=== PATIENT | female | born 1985 | race Two or more races ===

== ENCOUNTER 2024-06-12 13:05 | Outpatient (AMB) | payer MEDICAID, SELFPAY ==
[2024-06-12 13:20] VITALS: BP 124/74; PULSE 88; RESP 18; TEMP 36.6; O2SAT 98; BMI 22.8
--- NOTE | 2024-06-12 13:20 | OBCLNT_ITS ---
Vital Signs 06/12/24 13:20 Height 1.63 m Height Method Stated Weight 60.555 kg Weight Measurement Method Standing Scale BMI 22.8 BP 124/74 Blood Pressure Source Automatic Cuff Blood Pressure Location Right Upper Arm Position Sitting Respiration 18 Pulse 88 Pulse Source Monitor Temp 98 F Temp Source Temporal Artery Scan Pulse Oximetry (%) 98 Oxygen Delivery Method Room Air Allergies/Home Meds Allergies & Medications Allergies No Known Allergies Allergy (Verified 06/12/24 13:21) Medication Reconciliation prenat.vits,andrey,[id number] 1 tab PO QDAY 11/15/19 [History Confirmed ] Intake Visit Data Collection New Patient or Established: Established Patient (seen at [facility] within 3 years) Reason for Visit:: obi Do You Feel Safe at Home: Yes Authorities Contacted: N/A PCP or OBGYN visit in last 3 months: Yes Last menstrual period: 03/06/24 Pain Present Currently: No Smoking Status Smoking Status: Never smoker Questionnaires Covid-19 Vaccine Questionnaire Has patient been vacinated for Covid-19 Have you been vacinated for Covid-19: Yes PHQ-9 PHQ-2 Over the last 2 weeks, how often have you been bothered by any of the following problems? 1. Little interest or pleasure in doing things: not at all 2. Feeling down, depressed, or hopeless: not at all Total score: 0 Depression screen completed yes Social History Living Situation History Marital Status: Lives With: Family Housing: House Tobacco History Smoking Status: Never smoker Second Hand Smoke Exposure: No Alcohol History Alcohol Intake: Never Domestic Abuse History Do You Feel Safe at Home: Yes Past Medical History Past Medical History Have you ever been diagnosed with any of the following: Neurological Problems Seizures: No Cardiology Problems Congestive Heart Failure: No Respiratory Problems Chronic Obstructive Pulmonary Disease (COPD): No Genital/Urinary Problems Renal Disease: No Reproductive Problems Endometriosis: No Pelvic Inflammatory Disease: No Previous Pregnancies: Yes Endocrine Problems Diabetes Mellitus Type 1: No Diabetes Mellitus Type 2: No Blood Problems Anemia: Yes (with .) Other Problems Hospitalization: No Shingles: No Falls: No Blood Transfusions: No Blood Transfusion Reaction: No Anesthesia Reactions: No Chemotherapy: No Human Immunodeficiency Virus (HIV): No Chicken Pox: Yes Measles: Yes Mumps: No Rubella (Cook Islander Measles): No Pertussis: No Clostridium Difficile: No Cancer: No History of Present Illness HPI Narrative 38-year-old 8 para 4 that comes to [facility] for first OB appointment. Patient started with Dr. Leung at [facility] however she did not do any of her labs. Patient had 2 ultrasounds 1 at [facility] and I called for those results. Last period March 06, 2024. Estimated due date December 09, 2024. Patient reports menses are every month and they are regular. She is sure of her dates she tracks them. Denies social habits. Denies surgery. Denies chronic illness. Patient has a history of gestational diabetes on insulin with her last . And with her the prior she had GDM diet. All pregnancies were full-term and uncomplicated births. Patient and partner are happy about the it was planned. Denies bleeding or SAB complaints. She has nausea but is refusing medication. Patient will try sea bands. OB Initial Visit OB Flowsheet OB Flowsheet Initial Weight: Not Recorded Date -?-?-?-?-?-?-?-?-?-?-?-?- EGA Weight Edema CTX Effacement BP Fundal ht Pres Dilation Effacement Station Visit Note Alb Glu FHR Mov 06/12/24 -?-?-?-?-?-?-?-?-?-?-?-?- 14w 0d 60.555 kg absent absent 124/74 15 38-year-old multipara for first OB appointment. Patient is a transfer from [facility]. Previous history of diabetes with her last on insulin. Last period was March 06, 2024. EDC 12/09/2024. Denies bleeding or cramping at this time. Patient does have nausea. I offered Zofran to patient and patient declined. Patient's going to try sea bands and other comfort measures. Discussed diet and weight gain with patient. Increase exercise. Did a OB panel with an early 1 hour GTT and hemoglobin A1c. Also NIPT and carrier screens. I scheduled [facility] appointment for anatomy scan. And will offer genetic counseling because of advanced maternal age. Urine today dip was clear there is negative protein, negative leukocytes, negative nitrites. Return in 4 weeks OB check 156 Menstrual History Menstrual reliability: approximate (month known) Flow: normal Menstrual regularity: regular Monthly: Yes Age at menarche: 10 On control pills at conception: No Date of positive home test: 04/08/24 Associated symptoms (LMP): Reports nausea OB History : 8 Para: 4 Hx Total # of Abortions (Spontaneous & Elective): 3 # of Living Children: 4 Delivery History 1st : Child's name: keisha date: 08/03/09 sex: male Gestational age at delivery (weeks): 41 Delivery type: vaginal weight (lbs): 3628.739 g History of depression before or after : No 2nd : Child's name: teddy date: 11/10/10 sex: male Gestational age at delivery (weeks): 40 Delivery type: vaginal weight (lbs): 3175.147 g Delivery complications: none History of depression before or after : No 3rd : Child's name: marco date: 12/06/13 sex: female Gestational age at delivery (weeks): 40 Delivery type: vaginal weight (lbs): 3628.739 g Delivery complications: none History of depression before or after : No 4th : Child's name: christiano date: 01/18/20 sex: female Gestational age at delivery (weeks): 38 Delivery type: vaginal weight (lbs): 3175.147 g Delivery complications: none History of depression before or after : No Infection History & Risk Evaluation History of STDs: none HIV risk evaluation: low risk Hepatitis B risk evaluation: low risk Patient or partner has history of Genital Herpes: No Genetic Screening & History Genetic Screening/Teratology Counseling - Includes patient, baby's father, or anyone in either family with: 1. Patient's age 35 years or older as of estimated date of delivery: Yes 2. Thalassemia (Zambian, German, Mediterranean, or Background); MCV less than 80: No 3. Neural Tube Defect (Meningomyelocele, Spina Bifida, or Anencephaly): No 4. Congenital Heart Defect: No 5. Down Syndrome: No 6. Rk-Sachs (Ashkenazi Restorationist, Cajun, Uzbek Wall[place]): No 7. Tammy Disease (Ashkenazi Restorationist): No 8. Familial Dysautonomia (Ashkenazi Restorationist): No 9. Sickle Cell Disease or Trait (): No 10. Hemophilia or other blood disorders: No 11. Muscular Dystrophy: No 12. Cystic Fibrosis: No 13. Ellen's Chorea: No 14. Mental Retardation/Autism: No 15. Other inherited genetic or chromosomal disorder: No 16. Maternal Metabolic Disorder (EG,TYPE 1 Diabetes, PKU): No 17. Patient or baby's father had a child with defects not listed above: No 18. Recurrent loss or a stillbirth: No 19. Medications (including supplements, vitamins, herbs or otc dr ugs)/illicit/recreational drugs/alcohol since last menstrual period: No Infection History 1. Live with someone with TB or exposed to TB: No 2. Rash or viral illness since last menstrual period: No 3. Hepatitis B,C: No Other (see comments) Source: [employer] Review of Systems Review of Systems Systems Reviewed: All systems reviewed, normal except as documented Gastrointestinal Gastrointestinal: Reports nausea Exam Narrative Physical exam: fh: 15, FHT: 156 General Limitations: no limitations General Appearance: alert, in no apparent distress, comfortable, cooperative, healthy appearing, well developed and well groomed Chest Chest inspection: Present normal inspection and symmetric chest wall rise Resp Respiratory exam: Present normal lung sounds bilaterally Card Cardiovascular exam: Present regular rate, normal rhythm and normal heart sounds Abdominal Abdominal exam: Present soft and normal bowel sounds Psych Psychiatric exam: Present normal affect and normal mood Assessment & Plan Diagnosis / Problem List (1) Encounter for supervision of high risk in second trimester, antepartum: Status: Acute (2) Advanced maternal age (AMA) in : Status: Acute Plan Discussed comfort measures for nausea and vomiting. And I discussed weight gain and low-carb increased protein diet. Walk 40 minutes a day. Schedule anatomy scan at [facility] with MFM. OB panel today with 1 hour GTT and hemoglobin A1c and do carrier screens and NIPT. SAB precautions. Increase fluids. Return in 4 weeks OB to Additional Plan Follow Up: 4 Weeks (obc) Office Procedures OB Clinic LOC & Office Proc's Nursing/Assessment Patient Status: Initial/New Patient OB Clinic Nursing Assessment: Medication Reconciliation, Update PMH in EMR and Vital Signs OB Clinic Coordination of Care: Complex Care and Chronic Disease 1-5, Education Complex Pt/Fam, Consent,records obtained, informed consent, Lab and Imaging orders, Results/Orders obtained and Staff clarify orders New Patient Charge New Patient Point Assignment: [id number] New Patient Point Charge: LOOM MECHANIC Level 3 ([id number])
== END 2024-06-12 14:11 | disposition home or self-care (01) ==
LOC: HODSOBC 13:05
PROVIDERS: Supervising Provider Advanced Practice Midwife; Visit Provider Advanced Practice Midwife
DX: O09.522 Supervision of elderly multigravida, second trimester (principal); Z3A.14 14 weeks gestation of pregnancy; Z86.32 Personal history of gestational diabetes
CPT/HCPCS: 99203; G0463

== ENCOUNTER 2024-07-10 13:11 | Outpatient (AMB) | payer MEDICAID, SELFPAY ==
[2024-07-10 13:24] VITALS: BP 113/72; PULSE 98; RESP 20; TEMP 36.6; O2SAT 100; BMI 23.4
--- NOTE | 2024-07-10 13:24 | OBCLNT_ITS ---
Vital Signs 07/10/24 13:24 Height 1.63 m Height Method Stated Weight 62.369 kg Weight Measurement Method Standing Scale BMI 23.4 BP 113/72 Blood Pressure Source Automatic Cuff Blood Pressure Location Right Upper Arm Position Sitting Respiration 20 Pulse 98 Pulse Source Monitor Temp 98 F Temp Source Oral Pulse Oximetry (%) 100 Oxygen Delivery Method Room Air Allergies/Home Meds Allergies & Medications Allergies No Known Allergies Allergy (Verified 07/10/24 13:51) Medication Reconciliation prenat.vits,andrey,[id number] 1 tab PO QDAY 11/15/19 [History Confirmed 07/10/24] aspirin 81 mg tablet,delayed release (Adult Aspirin Regimen) 81 mg PO QDAY 30 days #60 tabs 07/10/24 [Rx] vitamin-ferrous fumarate 28 mg iron-folic acid 800 mcg tablet ( Vitamins with Minerals) 1 tab PO QDAY 30 days #60 tabs 07/10/24 [Rx] Intake Visit Data Collection New Patient or Established: Established Patient (seen at [facility] within 3 years) Reason for Visit:: CARE Seen by Clinical Staff ONLY (RN/MA): No Wheel Lacer And Truer Required: No Do You Feel Safe at Home: Yes Authorities Contacted: N/A PCP or OBGYN visit in last 3 months: Yes Hx Now: Yes Are you currently on any form of Control: No Pain Present Currently: No Pain Scale Used: Suresh-Brown/Numerical Pain scale:: 0 Smoking Status Smoking Status: Never smoker Questionnaires Covid-19 Vaccine Questionnaire Has patient been vacinated for Covid-19 Have you been vacinated for Covid-19: Yes PHQ-9 PHQ-2 Over the last 2 weeks, how often have you been bothered by any of the following problems? 1. Little interest or pleasure in doing things: not at all 2. Feeling down, depressed, or hopeless: not at all Total score: 0 PHQ-9 3. Trouble falling or staying asleep, or sleeping too much: Not at all 4. Feeling tired or having little energy: Not at all 5. Poor appetite or overeating: Not at all 6. Feeling bad about yourself - or that you are a failure or have let yourself or your family down: Not at all 7. Trouble concentrating on things, such as reading the newspaper or watching television: Not at all 8. Moving or speaking so slowly that other people could have noticed? - Or the opposite - being so fidgety or restless that you have been moving around a lot more than usual: not at all 9. Thoughts that you would be better off or of hurting yourself in some way: Not at all Total score: 0 Source: Developed by Drs. Musa Calixto, Jayshree Chua, Luis Fernando Fowler and colleagues, with an educational juan from [employer]. 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 Patient is a transfer from [facility]. Previous history of diabetes with her last on insulin. Last period was March 06, 2024. EDC 12/09/2024. Denies bleeding or cramping at this time. Patient does have nausea. I offered Zofran to patient and patient declined. Patient's going to try sea bands and other comfort measures. Discussed diet and weight gain with patient. Increase exercise. Did a OB panel with an early 1 hour GTT and hemoglobin A1c. Also NIPT and carrier screens. I scheduled [facility] appointment for anatomy scan. And will offer genetic counseling because of advanced maternal age. Urine today dip was clear there is negative protein, negative leukocytes, negative nitrites. Return in 4 weeks OB check 07/10/24 -?-?-?-?-?-?-?-?-?-?-?-?- 18w 0d 62.369 kg 113/72 absent unknown 20 135 active fetus active, no SAB complaints. patient going to vacation x 2 month , going to [place] patiwnt will have mfm appointment on return and do 3 hr GTT, discussed ptl precaution discuss safety and er precaution, hydrate, mfm appointment is schedule, discuss labs, discuss GDM diet and 1 hr results. patient will get 3 hr gtt on return AKUA Calculator Estimated Delivery Date Method Current WG Current Estimate 12/11/24 LMP (Certain) 18w 0d Office Procedures OB Clinic LOC & Office Proc's Nursing/Assessment Patient Status: Established Patient OB Clinic Nursing Assessment: Medication Reconciliation, Update PMH in EMR and Vital Signs OB Clinic Coordination of Care: AMA, Complex Care and Chronic Disease 1-5, Consent,records obtained, informed consent, Education Simp Pt/Fam, Lab and Imaging orders, Results/Orders obtained and Staff clarify orders Special Needs: Heart tones Established Patient Charge Established Patient Point Assignment: 155 Established Patient Point Charge: EP Level 4 (120-155) Assessment & Plan Diagnosis / Problem List (1) Advanced maternal age (AMA) in : Status: Acute (2) Encounter for supervision of high risk in second trimester, antepartum: Status: Acute Plan keep mfm appointment, sab precaution, refill pnv and ASA. patient will get 3 hr gtt when she returns from vacation, increase fluid. rtc 4 week Additional Plan Follow Up: 4 Weeks (obc)
== END 2024-07-10 13:57 | disposition home or self-care (01) ==
LOC: HODSOBC 13:11
PROVIDERS: Supervising Provider Advanced Practice Midwife; Visit Provider Advanced Practice Midwife
DX: O09.522 Supervision of elderly multigravida, second trimester (principal); Z3A.18 18 weeks gestation of pregnancy; O09.292 Supervision of pregnancy with other poor reproductive or obstetric history, second trimester; Z86.32 Personal history of gestational diabetes; Z79.82 Long term (current) use of aspirin
CPT/HCPCS: 99214; G0463

== ENCOUNTER 2024-09-18 13:00 | Outpatient (AMB) | payer MEDICAID, SELFPAY ==
[2024-09-18 13:07] VITALS: BP 111/68; PULSE 96; RESP 17; TEMP 36.7; O2SAT 99; BMI 25.2
--- NOTE | 2024-09-18 13:07 | AMB.OBVISIT ---
Vital Signs 09/18/24 13:07 Height 1.63 m Height Method Measured Weight 67.188 kg Weight Measurement Method Standing Scale BMI 25.2 BP 111/68 Blood Pressure Source Automatic Cuff Blood Pressure Location Right Upper Arm Position Sitting Respiration 17 Pulse 96 Pulse Source Monitor Temp 98.0 F Temp Source Temporal Artery Scan Pulse Oximetry (%) 99 Oxygen Delivery Method Room Air Allergies/Home Meds Allergies & Medications Allergies No Known Allergies Allergy (Verified 09/18/24 13:08) Medication Reconciliation prenat.vits,andrey,[id number] 1 tab PO QDAY 11/15/19 [History Confirmed 09/18/24] aspirin 81 mg tablet,delayed release (Adult Aspirin Regimen) 81 mg PO QDAY 30 days #60 tabs 07/10/24 [Rx Confirmed 09/18/24] ferrous sulfate 325 mg (65 mg iron) tablet 325 mg PO BID #60 tabs 09/18/24 [Rx] vitamin-ferrous fumarate 28 mg iron-folic acid 800 mcg tablet ( Vitamins with Minerals) 1 tab PO QDAY 30 days #60 tabs 09/18/24 [Rx] Intake Visit Data Collection New Patient or Established: Established Patient (seen at [facility] within 3 years) Reason for Visit:: C Consent obtained for Telemed Visit: No Seen by Clinical Staff ONLY (RN/MA): No Park Ranger Required: No Do You Feel Safe at Home: Yes Authorities Contacted: N/A PCP or OBGYN visit in last 3 months: Yes Date of Last PCP or OBGYN visit: 07/10/24 Hx Now: Yes Are you currently on any form of Control: No Pain Present Currently: No Pain Scale Used: Suresh-Brown/Numerical Pain scale:: 0 Smoking Status Smoking Status: Never smoker Questionnaires Covid-19 Vaccine Questionnaire Has patient been vacinated for Covid-19 Have you been vacinated for Covid-19: No PHQ-9 PHQ-2 Over the last 2 weeks, how often have you been bothered by any of the following problems? 1. Little interest or pleasure in doing things: not at all PHQ-9 8. Moving or speaking so slowly that other people could have noticed? - Or the opposite - being so fidgety or restless that you have been moving around a lot more than usual: not at all Source: Developed by Drs. Musa L. DurgaJayshree toledo, Luis Fernando Fowler and colleagues, with an educational juan from [employer]. 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 Patient is a transfer from [facility]. Previous history of diabetes with her last on insulin. Last period was March 06, 2024. EDC 12/09/2024. Denies bleeding or cramping at this time. Patient does have nausea. I offered Zofran to patient and patient declined. Patient's going to try sea bands and other comfort measures. Discussed diet and weight gain with patient. Increase exercise. Did a OB panel with an early 1 hour GTT and hemoglobin A1c. Also NIPT and carrier screens. I scheduled MFM appointment for anatomy scan. And will offer genetic counseling because of advanced maternal age. Urine today dip was clear there is negative protein, negative leukocytes, negative nitrites. Return in 4 weeks OB check 07/10/24 <del>?</del> 18w 0d 62.369 kg 113/72 absent unknown 20 135 active fetus active, no SAB complaints. patient going to vacation x 2 month , going to [place] patiwnt will have mfm appointment on return and do 3 hr GTT, discussed ptl precaution discuss safety and er precaution, hydrate, mfm appointment is schedule, discuss labs, discuss GDM diet and 1 hr results. patient will get 3 hr gtt on return 09/18/24 <del>?</del> 28w 0d 67.188 kg 111/68 absent unknown 28 135 active Patient returned from a 2-month vacation in [facility]. Reports good movement. She did not have time to do her 3-hour yet. She will do it in [place]. Patient has a follow-up in with maternal- medicine in 4 weeks. Reports good movement. Denies labor complaints Advised to get 3-hour GTT tomorrow. Continue vitamins and iron. Continue low-dose baby aspirin. Discussed GDM diet with patient. Discussed labor precautions. And schedule weekly NST BPP to start at 32 weeks. Return in 2 weeks OB check AKUA Calculator Estimated Delivery Date Method Current WG Current Estimate 12/11/24 LMP (Certain) 28w 0d Notes Visit Date: 09/18/24 Last Updated by: Yashira Kapoor, SAMI 39 yo LMP :03/06/24. EDC: 12/11/24. 1hr gtt: 147, O+,abs-, rpr;;nr, rub imm, hbsag-, hiv-,hc-, GC/CT-, NIPT/carrier screen- Office Procedures OB Clinic LOC & Office Proc's Nursing/Assessment Patient Status: Established Patient OB Clinic Nursing Assessment: Medication Reconciliation, Update PMH in EMR and Vital Signs OB Clinic Coordination of Care: Complex Care and Chronic Disease 1-5, Consent,records obtained, informed consent, Education Simp Pt/Fam and 4+ Authorizations needed Special Needs: Heart tones Established Patient Charge Established Patient Point Assignment: 130 Established Patient Point Charge: EP Level 4 (120-155) Assessment & Plan Diagnosis / Problem List (1) Advanced maternal age (AMA) in : Status: Acute (2) Encounter for supervision of high risk in third trimester, antepartum: Status: Acute Plan iron bid, refill PNV, continue ASA, f/u mfm 4 week. advised to get 3 hr gtt, start week NST/BPP. discuss ptl precaution,hydrate. rtc 3 week Additional Plan Follow Up: 3 Weeks (obc)
== END 2024-09-18 13:23 | disposition home or self-care (01) ==
LOC: HODSOBC 13:00
PROVIDERS: PCP Advanced Practice Midwife; Referring Provider Advanced Practice Midwife; Supervising Provider Advanced Practice Midwife; Visit Provider Advanced Practice Midwife
DX: O09.523 Supervision of elderly multigravida, third trimester (principal); Z3A.28 28 weeks gestation of pregnancy
CPT/HCPCS: 99214; G0463

== ENCOUNTER 2024-10-05 14:13 | Outpatient (AMB) | payer MEDICAID, SELFPAY ==
[2024-10-05 14:32] VITALS: BP 104/68; PULSE 86; RESP 16; TEMP 36.7; O2SAT 98; BMI 25.4
--- NOTE | 2024-10-05 14:32 | OBCLNT_ITS ---
Vital Signs 10/05/24 14:32 Height 1.63 m Height Method Stated Weight 67.642 kg Weight Measurement Method Standing Scale BMI 25.4 BP 104/68 Blood Pressure Source Automatic Cuff Blood Pressure Location Left Upper Arm Position Sitting Respiration 16 Pulse 86 Pulse Source Monitor Temp 98.1 F Temp Source Oral Pulse Oximetry (%) 98 Oxygen Delivery Method Room Air Allergies/Home Meds Allergies & Medications Allergies No Known Allergies Allergy (Verified 10/05/24 14:33) Medication Reconciliation prenat.vits,andrey,[id number] 1 tab PO QDAY 11/15/19 [History Confirmed 10/05/24] aspirin 81 mg tablet,delayed release (Adult Aspirin Regimen) 81 mg PO QDAY 30 days #60 tabs 07/10/24 [Rx Confirmed 10/05/24] ferrous sulfate 325 mg (65 mg iron) tablet 325 mg PO BID #60 tabs 09/18/24 [Rx Confirmed 10/05/24] vitamin-ferrous fumarate 28 mg iron-folic acid 800 mcg tablet ( Vitamins with Minerals) 1 tab PO QDAY 30 days #60 tabs 09/18/24 [Rx Confirmed 10/05/24] Intake Visit Data Collection New Patient or Established: Established Patient (seen at [facility] within 3 years) Reason for Visit:: CARE Seen by Clinical Staff ONLY (RN/MA): No Associate Professor Of Counseling Required: No Do You Feel Safe at Home: Yes Authorities Contacted: N/A PCP or OBGYN visit in last 3 months: Yes Hx Now: Yes Are you currently on any form of Control: No Pain Present Currently: No Pain Scale Used: Suresh-Brown/Numerical Pain scale:: 0 Smoking Status Smoking Status: Never smoker Questionnaires Covid-19 Vaccine Questionnaire Has patient been vacinated for Covid-19 Have you been vacinated for Covid-19: No PHQ-9 PHQ-2 Over the last 2 weeks, how often have you been bothered by any of the following problems? 1. Little interest or pleasure in doing things: not at all 2. Feeling down, depressed, or hopeless: not at all Total score: 0 PHQ-9 3. Trouble falling or staying asleep, or sleeping too much: Not at all 4. Feeling tired or having little energy: Not at all 5. Poor appetite or overeating: Not at all 6. Feeling bad about yourself - or that you are a failure or have let yourself or your family down: Not at all 7. Trouble concentrating on things, such as reading the newspaper or watching television: Not at all 8. Moving or speaking so slowly that other people could have noticed? - Or the opposite - being so fidgety or restless that you have been moving around a lot m ore than usual: not at all 9. Thoughts that you would be better off or of hurting yourself in some way: Not at all Source: Developed by Drs. Musa Calixto, Jayshree Chua, Luis Fernando Fowler and colleagues, with an educational juan from [employer]. 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 Abuse History Do You Feel Safe at Home: Yes [employer] WORK[employer]: Past Medical History Past Medical History: No Hx Neurological Disorders, No Hx Cardiac Disorders, No Hx Cancer, Yes Hx Blood Disorders, Yes Hx Anemia (with .), No Hx Gastrointestinal Disorders, No Hx Renal Disease, No Hx Diabetes Mellitus Type 1 and No Hx Diabetes Mellitus Type 2 Care OB Visit Log OB Flowsheet Initial Weight: Not Recorded Date -?-?-?-?-?-?-?-?-?-?-?-?- EGA Weight BP Alb Glu CTX Pres Fundal ht FHR Mov Dilation Station Effacement Hx Notes Visit Note 06/12/24 -?-?-?-?-?-?-?-?-?-?-?-?- 14w 0d 60.555 kg 124/74 absent 15 156 38-year-old multipara for first OB appointment. Patient is a transfer from [facility]. Previous history of diabetes with her last on insulin. Last period was March 06, 2024. EDC 12/09/2024. Denies bleeding or cramping at this time. Patient does have nausea. I offered Zofran to patient and patient declined. Patient's going to try sea bands and other comfort measures. Discussed diet and weight gain with patient. Increase exercise. Did a OB panel with an early 1 hour GTT and hemoglobin A1c. Also NIPT and carrier screens. I scheduled [facility] appointment for anatomy scan. And will offer genetic counseling because of advanced maternal age. Urine today dip was clear there is negative protein, negative leukocytes, negative nitrites. Return in 4 weeks OB check 07/10/24 -?-?-?-?-?-?-?-?-?-?-?-?- 18w 0d 62.369 kg 113/72 absent unknown 20 135 active fetus active, no SAB complaints. patient going to vacation x 2 month , going to [facility]. patiwnt will have mfm appointment on return and do 3 hr GTT, discussed ptl precaution discuss safety and er precaution, hydrate, mfm appointment is schedule, discuss labs, discuss GDM diet and 1 hr results. patient will get 3 hr gtt on return 09/18/24 -?-?-?-?-?-?-?-?-?-?-?-?- 28w 0d 67.188 kg 111/68 absent unknown 28 135 active Patient returned from a 2-month vacation in [place] and [facility]. Reports good movement. She did not have time to do her 3-hour yet. She will do it in [place]. Patient has a follow-up in with maternal- medicine in 4 weeks. Reports good movement. Denies labor complaints Advised to get 3-hour GTT tomorrow. Continue vitamins and iron. Continue low-dose baby aspirin. Discussed GDM diet with patient. Discus sed labor precautions. And schedule weekly NST BPP to start at 32 weeks. Return in 2 weeks OB check 10/05/24 -?-?-?-?-?-?-?-?-?-?-?-?- 30w 3d 67.642 kg 104/68 absent cephalic 30 135 active Complains of itching over her abdomen. Patient read [employer] and got scared. Sometimes complains of feeling short of breath. She is worried that her iron is low again I had already started her on iron twice a day for an H&H of 11 and 33. Reports good movement. Denies contractions. Denies leaking. Denies bleeding. Comfort measures for leg cramps. Comfort measures for itching. Patient can use Claritin daily. Discussed mild varicose veins in her left leg. Elevate them and wear support hose of is not too hot. CMP with cholestasis labs today. Continue iron twice a day. Patient to increase green veggies. Increase fluids. Discussed labor precautions and kick count. Patient has a follow-up MFM for middle of October. AKUA Calculator Estimated Delivery Date Method Current WG Current Estimate 12/11/24 LMP (Certain) 30w 3d Other Estimates 12/11/24 Ultrasound #1 30w 3d Notes Visit Date: 09/18/24 Last Updated by: Yashira Kapoor, CNRome 39 yo LMP :03/06/24. EDC: 12/11/24. 1hr gtt: 147, O+,abs-, rpr;;nr, rub imm, hbsag-, hiv-,hc-, GC/CT-, NIPT/carrier screen- Office Procedures OB Clinic LOC & Office Proc's Nursing/Assessment Patient Status: Established Patient OB Clinic Nursing Assessment: Medication Reconciliation, Update PMH in EMR and Vital Signs OB Clinic Coordination of Care: AMA, Complex Care and Chronic Disease 1-5, Consent,records obtained, informed consent, Education Simp Pt/Fam, Lab and Imaging orders, Results/Orders obtained and Staff clarify orders Special Needs: Heart tones Established Patient Charge Established Patient Point Assignment: 155 Established Patient Point Charge: EP Level 4 (120-155) Assessment & Plan Diagnosis / Problem List (1) Encounter for supervision of high risk in third trimester, antepartum: Status: Acute (2) Vaginitis: Status: Acute Qualifiers: Chronicity: acute Qualified Code(s): N76.0 - Acute vaginitis Plan CMP with cholestasis labs. Increase fluids. Increase iron rich foods. Continue iron twice a day. Discussed labor precautions. And kick count twice a day. Discussed comfort measures for leg cramps such as tonic water and magnesium. Support hose as needed. Return in a week OB check Additional Plan Follow Up: 2 Weeks (obc)
== END 2024-10-05 15:02 | disposition home or self-care (01) ==
LOC: HODSOBC 14:13
PROVIDERS: Supervising Provider Advanced Practice Midwife; Visit Provider Advanced Practice Midwife
DX: O09.523 Supervision of elderly multigravida, third trimester (principal); O09.893 Supervision of other high risk pregnancies, third trimester; O23.593 Infection of other part of genital tract in pregnancy, third trimester; N76.0 Acute vaginitis; O26.893 Other specified pregnancy related conditions, third trimester; L29.9 Pruritus, unspecified; Z3A.30 30 weeks gestation of pregnancy
CPT/HCPCS: 99214; G0463

== ENCOUNTER 2024-10-16 09:51 | Outpatient (AMB) | payer MEDICAID, SELFPAY ==
[2024-10-16 10:01] VITALS: BP 105/66; PULSE 93; RESP 18; TEMP 36.7; O2SAT 97; BMI 26.0
--- NOTE | 2024-10-16 10:01 | AMB.OBVISIT ---
Vital Signs 10/16/24 10:01 Height 1.63 m Height Method Stated Weight 69.173 kg Weight Measurement Method Standing Scale BMI 26.0 BP 105/66 Blood Pressure Source Automatic Cuff Blood Pressure Location Left Upper Arm Position Sitting Respiration 18 Pulse 93 Pulse Source Monitor Temp 98.1 F Temp Source Oral Pulse Oximetry (%) 97 Oxygen Delivery Method Room Air Allergies/Home Meds Allergies & Medications Allergies No Known Allergies Allergy (Verified 10/16/24 10:02) Medication Reconciliation prenat.vits,andrey,vgt-sstm-kogsq 1 tab PO QDAY 11/15/19 [History Confirmed 10/16/24] aspirin 81 mg tablet,delayed release (Adult Aspirin Regimen) 81 mg PO QDAY 30 days #60 tabs 07/10/24 [Rx Confirmed 10/16/24] ferrous sulfate 325 mg (65 mg iron) tablet 325 mg PO BID #60 tabs 09/18/24 [Rx Confirmed 10/16/24] vitamin-ferrous fumarate 28 mg iron-folic acid 800 mcg tablet ( Vitamins with Minerals) 1 tab PO QDAY 30 days #60 tabs 09/18/24 [Rx Confirmed 10/16/24] Intake Visit Data Collection New Patient or Established: Established Patient (seen at [facility] within 3 years) Reason for Visit:: CARE Seen by Clinical Staff ONLY (RN/MA): No Cook Chief Required: No Do You Feel Safe at Home: Yes Authorities Contacted: N/A PCP or OBGYN visit in last 3 months: Yes Hx Now: Yes Are you currently on any form of Control: No Pain Present Currently: No Pain Scale Used: Suresh-Brown/Numerical Pain scale:: 0 Smoking Status Smoking Status: Never smoker Questionnaires Covid-19 Vaccine Questionnaire Has patient been vacinated for Covid-19 Have you been vacinated for Covid-19: Yes PHQ-9 PHQ-2 Over the last 2 weeks, how often have you been bothered by any of the following problems? 1. Little interest or pleasure in doing things: not at all 2. Feeling down, depressed, or hopeless: not at all Total score: 0 PHQ-9 3. Trouble falling or staying asleep, or sleeping too much: Not at all 4. Feeling tired or having little energy: Not at all 5. Poor appetite or overeating: Not at all 6. Feeling bad about yourself - or that you are a failure or have let yourself or your family down: Not at all 7. Trouble concentrating on things, such as reading the newspaper or watching television: Not at all 8. Moving or speaking so slowly that other people could have noticed? - Or the opposite - being so fidgety or restless that you have been moving around a lot more than usual: not at all 9. Thoughts that you would be better off or of hurting yourself in some way: Not at all Total score: 0 Source: Developed by Drs. Musa Calixto, Jayshree Chua, Luis Fernando Fowelr and colleagues, with an educational juan from [email or web address]. 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 Abuse History Do You Feel Safe at Home: Yes [employer]: Past Medical History Past Medical History: No Hx Neurological Disorders, No Hx Cardiac Disorders, No Hx Cancer, Yes Hx Blood Disorders, Yes Hx Anemia (with .), No Hx Gastrointestinal Disorders, No Hx Renal Disease, No Hx Diabetes Mellitus Type 1 and No Hx Diabetes Mellitus Type 2 Care OB Visit Log OB Flowsheet Initial Weight: Not Recorded Date <del>?</del> EGA Weight BP Alb Glu CTX Pres Fundal ht FHR Mov Dilation Station Effacement Hx Notes Visit Note 06/12/24 <del>?</del> 14w 0d 60.555 kg 124/74 absent 15 156 38-year-old multipara for first OB appointment. Patient is a transfer from [facility]. Previous history of diabetes with her last on insulin. Last period was March 06, 2024. EDC 12/09/2024. Denies bleeding or cramping at this time. Patient does have nausea. I offered Zofran to patient and patient declined. Patient's going to try sea bands and other comfort measures. Discussed diet and weight gain with patient. Increase exercise. Did a OB panel with an early 1 hour GTT and hemoglobin A1c. Also NIPT and carrier screens. I scheduled [facility] appointment for anatomy scan. And will offer genetic counseling because of advanced maternal age. Urine today dip was clear there is negative protein, negative leukocytes, negative nitrites. Return in 4 weeks OB check 07/10/24 <del>?</del> 18w 0d 62.369 kg 113/72 absent unknown 20 135 active fetus active, no SAB complaints. patient going to vacation x 2 month , going to [facility]. patiwnt will have mfm appointment on return and do 3 hr GTT, discussed ptl precaution discuss safety and er precaution, hydrate, mfm appointment is schedule, discuss labs, discuss GDM diet and 1 hr results. patient will get 3 hr gtt on return 09/18/24 <del>?</del> 28w 0d 67.188 kg 111/68 absent unknown 28 135 active Patient returned from a 2-month vacation in [facility] and [facility]. Reports good movement. She did not have time to do her 3-hour yet. She will do it in [place]. Patient has a follow-up in with maternal- medicine in 4 weeks. Reports good movement. Denies labor complaints Advised to get 3-hour GTT tomorrow. Continue vitamins and iron. Continue low-dose baby aspirin. Discussed GDM diet with patient. Discussed labor precautions. And schedule weekly NST BPP to start at 32 weeks. Return in 2 weeks OB check 10/05/24 <del>?</del> 30w 3d 67.642 kg 104/68 absent cephalic 30 135 active Complains of itching over her abdomen. Patient read [employer] and got scared. Sometimes complains of feeling short of breath. She is worried that her iron is low again I had already started her on iron twice a day for an H&H of 11 and 33. Reports good movement. Denies contractions. Denies leaking. Denies bleeding. Comfort measures for leg cramps. Comfort measures for itching. Patient can use Claritin daily. Discussed mild varicose veins in her left leg. Elevate them and wear support hose of is not too hot. CMP with cholestasis labs today. Continue iron twice a day. Patient to increase green veggies. Increase fluids. Discussed labor precautions and kick count. Patient has a follow-up MFM for middle october. 10/16/24 <del>?</del> 32w 0d 69.173 kg 105/66 absent cephalic 32 135 active Follow-up [facility] October 25. Reports good movement. Denies leaking, bleeding, contractions. Patient wants to know since her 3-hour was okay can she eat what ever she wants Follow-up [facility] October 25. Discussed labor precautions. Weekly NST BPP is pending. I will send patient this week to start. Continue vitamins and iron. Increase fluids. Kick count twice a day. I discussed diet and weight with patient AKUA Calculator Estimated Delivery Date Method Current WG Current Estimate 12/11/24 LMP (Certain) 32w 0d Other Estimates 12/11/24 Ultrasound #1 32w 0d Notes Visit Date: 10/16/24 Last Updated by: Yashira Kapoor CNM 2: 3 hr gtt: wnl. 1 value high. Visit Date: 09/18/24 Last Updated by: Yashira Kapoor CNM 39 yo LMP :03/06/24. EDC: 12/11/24. 1hr gtt: 147, O+,abs-, rpr;;nr, rub imm, hbsag-, hiv-,hc-, GC/CT-, NIPT/carrier screen- Office Procedures OB Clinic LOC & Office Proc's Nursing/Assessment Patient Status: Established Patient OB Clinic Nursing Assessment: Medication Reconciliation, Update PMH in EMR and Vital Signs OB Clinic Coordination of Care: AMA, Complex Care and Chronic Disease 1-5, Consent,records obtained, informed consent, Education Simp Pt/Fam, Lab and Imaging orders, Results/Orders obtained and Staff clarify orders Special Needs: Heart tones Established Patient Charge Established Patient Point Assignment: 155 Established Patient Point Charge: EP Level 4 (120-155) Assessment & Plan Diagnosis / Problem List (1) Encounter for supervision of high risk in third trimester, antepartum: Status: Acute (2) Advanced maternal age (AMA) in : Status: Acute Plan Continue baby aspirin. Discussed labor precautions. precautions reviewed. Kick counts twice a day. Patient will start weekly NST BPP. Discussed GDM diet and increase activity. Follow-up [facility] sono October 25. And return in 2 weeks at which Additional Plan Follow Up: 2 Weeks (obc)
== END 2024-10-16 10:27 | disposition home or self-care (01) ==
LOC: HODSOBC 09:51
PROVIDERS: Supervising Provider Advanced Practice Midwife; Visit Provider Advanced Practice Midwife
DX: O09.523 Supervision of elderly multigravida, third trimester (principal); O09.893 Supervision of other high risk pregnancies, third trimester; O24.410 Gestational diabetes mellitus in pregnancy, diet controlled; Z3A.32 32 weeks gestation of pregnancy; Z79.82 Long term (current) use of aspirin
CPT/HCPCS: 99214; G0463

== ENCOUNTER 2024-10-16 14:33 | Outpatient (CLI) | payer MEDICAID, SELFPAY ==
[2024-10-16 15:45] VITALS: BP 109/65; PULSE 83; RESP 18; RESP 99; TEMP 36.7
--- NOTE | 2024-10-16 15:46 | XR_ITS ---
Examination: Biophysical profile, ultrasound Date and time of exam: October 16, 2024 1537 hours INDICATIONS: Diagnosis advanced maternal age Technique: Multiple transabdominal sonographic images of the pelvis abdomen obtained. Attention is directed to the breathing movement, gross body movement, amniotic fluid volume and tone. Findings: Amniotic fluid index 7.0 cm Total biophysical profile is 8 of 8. breathing movement is 2. Gross body movement is 2. tone is 2. Qualitative amniotic fluid volume is 2 Impression: Biophysical profile is 8 of 8.
== END 2024-10-16 16:30 | disposition home or self-care (01) ==
LOC: S4S1 14:38 → S4SX 15:42
PROVIDERS: PCP Physician Assistant; Referring Provider Advanced Practice Midwife; Visit Provider Advanced Practice Midwife
DX: O09.523 Supervision of elderly multigravida, third trimester (principal); Z3A.32 32 weeks gestation of pregnancy
CPT/HCPCS: 59025; 76819

== ENCOUNTER 2024-10-27 23:16 | Observation (INO) | payer MEDICAID, SELFPAY ==
[2024-10-27] VITALS (8 sets, daily range): BP systolic 115; BP diastolic 73; PULSE 75–81; RESP 16–98; TEMP 36.9; O2SAT 97–98; BMI 26.6
[2024-10-28] VITALS (12 sets, daily range): BP systolic 104; BP diastolic 61; PULSE 66–82; O2SAT 97–100
[2024-10-28] MEDS: RINGERS LACTATED 1000 ML 1,000 ML 999 ML IV (01:05)
== END 2024-10-28 03:20 | disposition home or self-care (01) ==
PROVIDERS: Admitting Provider Obstetrics & Gynecology; Visit Provider Obstetrics & Gynecology
DX: O36.8130 Decreased fetal movements, third trimester, not applicable or unspecified (principal); Z3A.33 33 weeks gestation of pregnancy
CPT/HCPCS: 59025; 59899; J7120

== ENCOUNTER 2024-10-29 13:28 | Outpatient (AMB) | payer MEDICAID, SELFPAY ==
[2024-10-29 13:37] VITALS: BP 125/87; PULSE 110; RESP 16; TEMP 36.2; O2SAT 98; BMI 26.4
--- NOTE | 2024-10-29 13:37 | OBCLNT_ITS ---
Vital Signs 10/29/24 13:37 Height 1.63 m Height Method Stated Weight 70.364 kg Weight Measurement Method Standing Scale BMI 26.4 BP 125/87 H Blood Pressure Source Automatic Cuff Blood Pressure Location Left Upper Arm Position Sitting Respiration 16 Pulse 110 H Pulse Source Monitor Temp 97.2 F Temp Source Oral Pulse Oximetry (%) 98 Oxygen Delivery Method Room Air Allergies/Home Meds Allergies & Medications Allergies No Known Allergies Allergy (Verified 10/29/24 13:40) Medication Reconciliation aspirin 81 mg tablet,delayed release (Adult Aspirin Regimen) 81 mg PO QDAY 30 days #60 tabs 07/10/24 [Rx Confirmed 10/29/24] ferrous sulfate 325 mg (65 mg iron) tablet 325 mg PO BID #60 tabs 09/18/24 [Rx Confirmed 10/29/24] vitamin-ferrous fumarate 28 mg iron-folic acid 800 mcg tablet ( Vitamins with Minerals) 1 tab PO QDAY 30 days #60 tabs 09/18/24 [Rx Confirmed 10/29/24] ursodiol 200 mg capsule 200 mg PO BID #30 caps 10/29/24 [Rx] Intake Visit Data Collection New Patient or Established: Established Patient (seen at [facility] within 3 years) Reason for Visit:: OBC Seen by Clinical Staff ONLY (RN/MA): No Verifier Operator Required: No Do You Feel Safe at Home: Yes Authorities Contacted: N/A PCP or OBGYN visit in last 3 months: Yes Date of Last PCP or OBGYN visit: 10/28/24 Hx Now: Yes Pain Present Currently: No Pain Scale Used: Suresh-Brown/Numerical Pain scale:: 0 Smoking Status Smoking Status: Never smoker Questionnaires Covid-19 Vaccine Questionnaire Has patient been vacinated for Covid-19 Have you been vacinated for Covid-19: Yes PHQ-9 PHQ-2 Over the last 2 weeks, how often have you been bothered by any of the following problems? 1. Little interest or pleasure in doing things: not at all 2. Feeling down, depressed, or hopeless: not at all Total score: 0 PHQ-9 3. Trouble falling or staying asleep, or sleeping too much: Not at all 4. Feeling tired or having little energy: Not at all 5. Poor appetite or overeating: Not at all 6. Feeling bad about yourself - or that you are a failure or have let yourself or your family down: Not at all 7. Trouble concentrating on things, such as reading the newspaper or watching television: Not at all 8. Moving or speaking so slowly that other people could have noticed? - Or the opposite - being so fidgety or restless that you have been moving around a lot more than usual: not at all 9. Thoughts that you would be better off or of hurting yourself in some way: Not at all Total score: 0 If you checked off any problems, how difficult have these problems made it for you to do your work, take care of things at home, or get along with other people?: not difficult at all Source: Developed by Drs. Musa Calixto, Jayshree Chua, Luis Fernando Fowler and colleagues, with an educational juan from [employer]. 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 Patient is a transfer from [facility]. Previous history of diabetes with her last on insulin. Last period was March 06, 2024. EDC 12/09/2024. Denies bleeding or cramping at this time. Patient does have nausea. I offered Zofran to patient and patient declined. Patient's going to try sea bands and other comfort measures. Discussed diet and weight gain with patient. Increase exercise. Did a OB panel with an early 1 hour GTT and hemoglobin A1c. Also NIPT and carrier screens. I scheduled MFM appointment for anatomy scan. And will offer genetic counseling because of advanced maternal age. Urine today dip was clear there is negative protein, negative leukocytes, negative nitrites. Return in 4 weeks OB check 07/10/24 -?-?-?-?-?-?-?-?-?-?-?-?- 18w 0d 62.369 kg 113/72 absent unknown 20 135 active fetus active, no SAB complaints. patient going to vacation x 2 month , going to [facility]. patiwnt will have mfm appointment on return and do 3 hr GTT, discussed ptl precaution discuss safety and er precaution, hydrate, mfm appointment is schedule, discuss labs, discuss GDM diet and 1 hr results. patient will get 3 hr gtt on return 09/18/24 -?-?-?-?-?-?-?-?-?-?-?-?- 28w 0d 67.188 kg 111/68 absent unknown 28 135 active Patient returned from a 2-month vacation in [facility]. Reports good movement. She did not have time to do her 3-hour yet. She will do it in [place]. Patient has a follow-up in with maternal- medicine in 4 weeks. Reports good movement. Denies labor complaints Advised to get 3-hour GTT tomorrow. Continue vitamins and iron. Continue low-dose baby aspirin. Discussed GDM diet with patient. Discus sed labor precautions. And schedule weekly NST BPP to start at 32 weeks. Return in 2 weeks OB check 10/05/24 -?-?-?-?-?-?-?-?-?-?-?-?- 30w 3d 67.642 kg 104/68 absent cephalic 30 135 active Complains of itching over her abdomen. Patient read [employer] and got scared. Sometimes complains of feeling short of breath. She is worried that her iron is low again I had already started her on iron twice a day for an H&H of 11 and 33. Reports good movement. Denies contractions. Denies leaking. Denies bleeding. Comfort measures for leg cramps. Comfort measures for itching. Patient can use Claritin daily. Discussed mild varicose veins in her left leg. Elevate them and wear support hose of is not too hot. CMP with cholestasis labs today. Continue iron twice a day. Patient to increase green veggies. Increase fluids. Discussed labor precautions and kick count. Patient has a follow-up MFM for middle of October. 10/16/24 -?-?-?-?-?-?-?-?-?-?-?-?- 32w 0d 69.173 kg 105/66 absent cephalic 32 135 active Follow-up MFM October 25. Reports good movement. Denies leaking, bleeding, contractions. Patient wants to know since her 3-hour was okay can she eat what ever she wants Follow-up MFM Se ptember 11. Discussed labor precautions. Weekly NST BPP is pending. I will send patient this week to start. Continue vitamins and iron. Increase fluids. Kick count twice a day. I discussed diet and weight with patient 10/29/24 -?-?-?-?-?-?-?-?-?-?-?-?- 33w 6d 70.364 kg 125/87 absent cephalic 33 135 active Still complains of itching. Denies labor. Reports fetus is active. Her labs for cholestasis liver enzymes AST and ALT were normal. Bile acids were 16. BUN/creatinine ratio was 18 Disc ussed cholestasis labs with Dr. Simeon. The plan is to deliver patient at 37 weeks. Start ursodiol 200 p.o. twice daily. NST BPP to be done twice weekly. Discussed labor precautions and kick count twice a day. Plan for delivery at 37 weeks. Discussed cholestasis labs w [facility] Dr. Simeon. The plan is to deliver patient at 37 weeks. Start ursodiol 200 p.o. twice daily. NST BPP to be done twice weekly. Discussed labor precautions and kick count twice a day. Plan for delivery at 37 weeks.. AKUA Calculator Estimated Delivery Date Method Current WG Current Estimate 12/11/24 LMP (Certain) 33w 6d Other Estimates 12/11/24 Ultrasound #1 33w 6d 12/11/24 Ultrasound #2 33w 6d 12/11/24 Manual 33w 6d final AKUA: 11/15 10/08, EFW: 59% Notes Visit Date: 10/16/24 Last Updated by: Yashira Kapoor CNM 2: 3 hr gtt: wnl. 1 value high. Visit Date: 09/18/24 Last Updated by: Yashira Kapoor CNM 39 yo LMP :03/06/24. EDC: 12/11/24. 1hr gtt: 147, O+,abs-, rpr;;nr, rub imm, hbsag-, hiv-,hc-, GC/CT-, NIPT/carrier screen- Office Procedures OB Clinic LOC & Office Proc's Nursing/Assessment Patient Status: Established Patient OB Clinic Nursing Assessment: Medication Reconciliation, Update PMH in EMR and Vital Signs OB Clinic Coordination of Care: Education Complex Pt/Fam, Consent,records obtained, informed consent, Lab and Imaging orders and Staff clarify orders Special Needs: Heart tones Established Patient Charge Established Patient Point Assignment: 110 Established Patient Point Charge: EP Level 3 (80-115) Assessment & Plan Diagnosis / Problem List (1) Cholestasis during in third trimester: Status: Acute (2) Encounter for supervision of high risk in third trimester, antepartum: Status: Acute (3) Advanced maternal age (AMA) in : Status: Acute Plan Schedule induction at 37. Discussed labor precautions. Discussed kick count twice a day. Patient has another sono for growth in a week. Ursodiol 200 twice daily. Kick count reviewed twice a day. Patient will have biweekly NST BPP starting tomorrow. Return in 2 weeks OB check Additional Plan Follow Up: 2 Weeks (obc)
== END 2024-10-29 14:14 | disposition home or self-care (01) ==
LOC: HODSOBC 13:28
PROVIDERS: Supervising Provider Advanced Practice Midwife; Visit Provider Advanced Practice Midwife
DX: O09.523 Supervision of elderly multigravida, third trimester (principal); O09.893 Supervision of other high risk pregnancies, third trimester; O26.643 Intrahepatic cholestasis of pregnancy, third trimester; Z3A.33 33 weeks gestation of pregnancy; Z79.82 Long term (current) use of aspirin
CPT/HCPCS: 99213; G0463

== ENCOUNTER 2024-11-05 13:54 | Outpatient (AMB) | payer MEDICAID, SELFPAY ==
[2024-11-05 14:18] VITALS: BP 109/65; PULSE 76; RESP 16; TEMP 36.4; O2SAT 98; BMI 26.9
--- NOTE | 2024-11-05 14:18 | OBCLNT_ITS ---
Vital Signs 11/05/24 14:18 Height 1.63 m Height Method Stated Weight 70.987 kg Weight Measurement Method Standing Scale BMI 26.9 BP 109/65 Blood Pressure Source Manual Cuff- Auscultation Blood Pressure Location Left Upper Arm Position Sitting Respiration 16 Pulse 76 Pulse Source Monitor Temp 97.6 F Temp Source Oral Pulse Oximetry (%) 98 Oxygen Delivery Method Room Air Allergies/Home Meds Allergies & Medications Allergies No Known Allergies Allergy (Verified 11/05/24 14:19) Medication Reconciliation aspirin 81 mg tablet,delayed release (Adult Aspirin Regimen) 81 mg PO QDAY 30 days #60 tabs 07/10/24 [Rx Confirmed 11/05/24] ferrous sulfate 325 mg (65 mg iron) tablet 325 mg PO BID #60 tabs 09/18/24 [Rx Confirmed 11/05/24] vitamin-ferrous fumarate 28 mg iron-folic acid 800 mcg tablet ( Vitamins with Minerals) 1 tab PO QDAY 30 days #60 tabs 09/18/24 [Rx Confirmed 11/05/24] ursodiol 200 mg capsule 200 mg PO BID #30 caps 10/29/24 [Rx Confirmed 11/05/24] ursodiol 200 mg capsule 200 mg PO BID #30 caps 10/30/24 [Rx Confirmed 11/05/24] ursodiol 200 mg capsule 200 mg PO BID #30 caps 10/30/24 [Rx Confirmed 11/05/24] ursodiol 250 mg tablet 250 mg PO BID #60 tabs 11/01/24 [Rx Confirmed 11/05/24] Intake Visit Data Collection New Patient or Established: Established Patient (seen at [facility] within 3 years) Reason for Visit:: CARE Seen by Clinical Staff ONLY (RN/MA): No Sweater Operator Required: No Do You Feel Safe at Home: Yes Authorities Contacted: N/A PCP or OBGYN visit in last 3 months: Yes Hx Now: Yes Are you currently on any form of Control: No Pain Present Currently: No Pain Scale Used: Suresh-Brown/Numerical Pain scale:: 0 Smoking Status Smoking Status: Never smoker Questionnaires Covid-19 Vaccine Questionnaire Has patient been vacinated for Covid-19 Have you been vacinated for Covid-19: Yes PHQ-9 PHQ-2 Over the last 2 weeks, how often have you been bothered by any of the following problems? 1. Little interest or pleasure in doing things: not at all 2. Feeling down, depressed, or hopeless: not at all Total score: 0 PHQ-9 3. Trouble falling or staying asleep, or sleeping too much: Not at all 4. Feeling tired or having little energy: Not at all 5. Poor appetite or overeating: Not at all 6. Feeling bad about yourself - or that you are a failure or have let yourself or your family down: Not at all 7. Trouble concentrating on things, such as reading the newspaper or watching television: Not at all 8. Moving or speaking so slowly that other people could have noticed? - Or the opposite - being so fidgety or restless that you have been moving around a lot more than usual: not at all 9. Thoughts that you would be better off or of hurting yourself in some way: Not at all Total score: 0 Source: Developed by Drs. Musa Calixto, Jayshree Chua, Luis Fernando Fowler and colleagues, with an educational juan from [employer]. 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 Patient is a transfer from [facility]. Previous history of diabetes with her last on insulin. Last period was March 06, 2024. EDC 12/09/2024. Denies bleeding or cramping at this time. Patient does have nausea. I offered Zofran to patient and patient declined. Patient's going to try sea bands and other comfort measures. Discussed diet and weight gain with patient. Increase exercise. Did a OB panel with an early 1 hour GTT and hemoglobin A1c. Also NIPT and carrier screens. I scheduled MFM appointment for anatomy scan. And will offer genetic counseling because of advanced maternal age. Urine today dip was clear there is negative protein, negative leukocytes, negative nitrites. Return in 4 weeks OB check 07/10/24 -?-?-?-?-?-?-?-?-?-?-?-?- 18w 0d 62.369 kg 113/72 absent unknown 20 135 active fetus active, no SAB complaints. patient going to vacation x 2 month , going to [facility]. patiwnt will have mfm appointment on return and do 3 hr GTT, discussed ptl precaution discuss safety and er precaution, hydrate, mfm appointment is schedule, discuss labs, discuss GDM diet and 1 hr results. patient will get 3 hr gtt on return 09/18/24 -?-?-?-?-?-?-?-?-?-?-?-?- 28w 0d 67.188 kg 111/68 absent unknown 28 135 active Patient returned from a 2-month vacation in [facility] and [facility]. Reports good movement. She did not have time to do her 3-hour yet. She will do it in [place]. Patient has a follow-up in with maternal- medicine in 4 weeks. Reports good movement. Denies labor complaints Advised to get 3-hour GTT tomorrow. Continue vitamins and iron. Continue low-dose baby aspirin. Discussed GDM diet with patient. Discus sed labor precautions. And schedule weekly NST BPP to start at 32 weeks. Return in 2 weeks OB check 10/05/24 -?-?-?-?--?-?-?-?-?-?-?-?- 30w 3d 67.642 kg 104/68 absent cephalic 30 135 active Complains of itching over her abdomen. Patient read [employer] and got scared. Sometimes complains of feeling short of breath. She is worried that her iron is low again I had already started her on iron twice a day for an H&H of 11 and 33. Reports good movement. Denies contractions. Denies leaking. Denies bleeding. Comfort measures for leg cramps. Comfort measures for itching. Patient can use Claritin daily. Discussed mild varicose veins in her left leg. Elevate them and wear support hose of is not too hot. CMP with cholestasis labs today. Continue iron twice a day. Patient to increase green veggies. Increase fluids. Discussed labor precautions and kick count. Patient has a follow-up MFM for middle of October. 10/16/24 -?-?-?-?-?-?-?-?-?-?-?-?- 32w 0d 69.173 kg 105/66 absent cephalic 32 135 active Follow-up MFM October 25. Reports good movement. Denies leaking, bleeding, contractions. Patient wants to know since her 3-hour was okay can she eat what ever she wants Follow-up MFM Se ptember . Discussed labor precautions. Weekly NST BPP is pending. I will send patient this week to start. Continue vitamins and iron. Increase fluids. Kick count twice a day. I discussed diet and weight with patient 10/29/24 -?-?-?-?-?-?-?-?-?-?-?-?- 33w 6d 70.364 kg 125/87 absent cephalic 33 135 active Still complains of itching. Denies labor. Reports fetus is active. Her labs for cholestasis liver enzymes AST and ALT were normal. Bile acids were 16. BUN/creatinine ratio was 18 Disc ussed cholestasis labs with Dr. Simeon. The plan is to deliver patient at 37 weeks. Start ursodiol 200 p.o. twice daily. NST BPP to be done twice weekly. Discussed labor precautions and kick count twice a day. Plan for delivery at 37 weeks. Discussed cholestasis labs w lissette Simeon. The plan is to deliver patient at 37 weeks. Start ursodiol 200 p.o. twice daily. NST BPP to be done twice weekly. Discussed labor precautions and kick count twice a day. Plan for delivery at 37 weeks.. 11/05/24 -?-?-?-?-?-?-?-?-?-?-?-?- 34w 6d 70.987 kg 109/65 absent cephalic 34 135 active Patient was happy to say that her ursodiol to 50 has been approved and she is taking it as directed. She reports that her itching is gone. Compliant with regular NST BPP. Fetus is active and moving. Denies leaking, bleeding, contractions schedule IOL 11/22/24 for cholestasis. GBS next visit. Discussed labor precautions and kick count. Continue that with the ursodiol and weekly NST BPP. Discussed danger signs symptoms and ER precautions AKUA Calculator Estimated Delivery Date Method Current WG Current Estimate 12/11/24 LMP (Certain) 34w 6d Other Estimates 12/11/24 Ultrasound #1 34w 6d 12/11/24 Ultrasound #2 34w 6d 12/11/24 Manual 34w 6d final AKUA: 11/15 10/08, EFW: 59% Notes Visit Date: 10/16/24 Last Updated by: Yashira Kapoor CNM 10/16: 3 hr gtt: wnl. 1 value high. Visit Date: 09/18/24 Last Updated by: Yashira Kapoor CNM 39 yo LMP :03/06/24. EDC: 12/11/24. 1hr gtt: 147, O+,abs-, rpr;;nr, rub imm, hbsag-, hiv-,hc-, GC/CT-, NIPT/carrier screen- Office Procedures OB Clinic LOC & Office Proc's Nursing/Assessment Patient Status: Established Patient OB Clinic Nursing Assessment: Medication Reconciliation, Update PMH in EMR and Vital Signs OB Clinic Coordination of Care: AMA, Complex Care and Chronic Disease 1-5, Consent,records obtained, informed consent, Education Simp Pt/Fam, 1 Ins Authorization, Lab and Imaging orders, Results/Orders obtained and Staff clarify orders Special Needs: Heart tones Established Patient Charge Established Patient Point Assignment: 170 Established Patient Point Charge: EP Level 5 (160-above) Assessment & Plan Diagnosis / Problem List (1) Cholestasis during in third trimester: Status: Acute (2) Encounter for supervision of high risk in third trimester, an tepartum: Status: Acute Plan Continue ursodiol 250 twice daily. Discussed labor precautions. Kick count twice a day. Patient to continue biweekly NST BPP. She is scheduled for induction November 22. GBS next visit. Discussed danger signs and symptoms and ER precautions. Return in a week OB check Additional Plan Follow Up: 1 Week (OBC)
== END 2024-11-05 15:06 | disposition home or self-care (01) ==
LOC: HODSOBC 13:54
PROVIDERS: Supervising Provider Advanced Practice Midwife; Visit Provider Advanced Practice Midwife
DX: O09.893 Supervision of other high risk pregnancies, third trimester (principal); O26.643 Intrahepatic cholestasis of pregnancy, third trimester; O09.523 Supervision of elderly multigravida, third trimester; Z3A.34 34 weeks gestation of pregnancy
CPT/HCPCS: 99215; G0463

== ENCOUNTER 2024-11-09 13:51 | Outpatient (CLI) | payer MEDICAID, SELFPAY ==
[2024-11-09] VITALS (7 sets, daily range): BP systolic 100; BP diastolic 60; PULSE 89–97; RESP 18–99; TEMP 36.3; O2SAT 98–99; BMI 26.7
--- NOTE | 2024-11-09 13:55 | XR_ITS ---
Examination: Biophysical profile, ultrasound Date and time of exam: November 09 thousand 25, 1535 hours INDICATIONS: Diagnosis advanced maternal age, diagnosis cholestasis of Technique: Multiple transabdominal sonographic images of the pelvis abdomen obtained. Attention is directed to the breathing movement, gross body movement, amniotic fluid volume and tone. Findings: Amniotic fluid index 7.5 cm Total biophysical profile is 8 of 8. breathing movement is 2. Gross body movement is 2. tone is 2. Qualitative amniotic fluid volume is 2 Impression: Biophysical profile is 8 of 8.
== END 2024-11-09 16:18 | disposition home or self-care (01) ==
LOC: S4S1 13:52 → S4SX 13:52
PROVIDERS: Referring Provider Advanced Practice Midwife; Visit Provider Advanced Practice Midwife
DX: O26.643 Intrahepatic cholestasis of pregnancy, third trimester (principal); O09.523 Supervision of elderly multigravida, third trimester; Z3A.35 35 weeks gestation of pregnancy
CPT/HCPCS: 59025; 76819

== ENCOUNTER 2024-11-12 14:12 | Outpatient (AMB) | payer MEDICAID, SELFPAY ==
--- NOTE | 2024-11-12 14:20 | OBCLNT_ITS ---
Vital Signs 11/12/24 14:25 Height 1.63 m Height Method Stated Weight 71.668 kg Weight Measurement Method Standing Scale BMI 26.9 BP 125/79 Blood Pressure Source Automatic Cuff Blood Pressure Location Left Upper Arm Position Sitting Respiration 18 Pulse 98 Pulse Source Monitor Temp 98 F Temp Source Oral Pulse Oximetry (%) 97 Oxygen Delivery Method Room Air Allergies/Home Meds Allergies & Medications Allergies No Known Allergies Allergy (Verified 11/12/24 14:26) Medication Reconciliation aspirin 81 mg tablet,delayed release (Adult Aspirin Regimen) 81 mg PO QDAY 30 days #60 tabs 07/10/24 [Rx Confirmed 11/12/24] ferrous sulfate 325 mg (65 mg iron) tablet 325 mg PO BID #60 tabs 09/18/24 [Rx Confirmed 11/12/24] vitamin-ferrous fumarate 28 mg iron-folic acid 800 mcg tablet ( Vitamins with Minerals) 1 tab PO QDAY 30 days #60 tabs 09/18/24 [Rx Confirmed 11/12/24] ursodiol 200 mg capsule 200 mg PO BID #30 caps 10/29/24 [Rx Confirmed 11/12/24] ursodiol 200 mg capsule 200 mg PO BID #30 caps 10/30/24 [Rx Confirmed 11/12/24] ursodiol 200 mg capsule 200 mg PO BID #30 caps 10/30/24 [Rx Confirmed 11/12/24] ursodiol 250 mg tablet 250 mg PO BID #60 tabs 11/01/24 [Rx Confirmed 11/12/24] Intake Visit Data Collection New Patient or Established: Established Patient (seen at [facility] within 3 years) Reason for Visit:: CARE Seen by Clinical Staff ONLY (RN/MA): No Senior Adults Director Required: No Do You Feel Safe at Home: Yes Authorities Contacted: N/A PCP or OBGYN visit in last 3 months: Yes Hx Now: Yes Are you currently on any form of Control: No Pain Present Currently: No Pain Scale Used: Suresh-Brown/Numerical Pain scale:: 0 Smoking Status Smoking Status: Never smoker Questionnaires Covid-19 Vaccine Questionnaire Has patient been vacinated for Covid-19 Have you been vacinated for Covid-19: Yes PHQ-9 PHQ-2 Over the last 2 weeks, how often have you been bothered by any of the following problems? 1. Little interest or pleasure in doing things: not at all 2. Feeling down, depressed, or hopeless: not at all Total score: 0 PHQ-9 3. Trouble falling or staying asleep, or sleeping too much: Not at all 4. Feeling tired or having little energy: Not at all 5. Poor appetite or overeating: Not at all 6. Feeling bad about yourself - or that you are a failure or have let yourself or your family down: Not at all 7. Trouble concentrating on things, such as reading the newspaper or watching television: Not at all 8. Moving or speaking so slowly that other people could have noticed? - Or the opposite - being so fidgety or restless that you have been moving around a lot more than usual: not at all 9. Thoughts that you would be better off or of hurting yourself in some way: Not at all Total score: 0 Source: Developed by Drs. Musa Calixto, Jayshree Chua, Luis Fernando Fowler and colleagues, with an educational juan from [employer]. 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 Patient is a transfer from [facility]. Previous history of diabetes with her last on insulin. Last period was March 06, 2024. EDC 12/09/2024. Denies bleeding or cramping at this time. Patient does have nausea. I offered Zofran to patient and patient declined. Patient's going to try sea bands and other comfort measures. Discussed diet and weight gain with patient. Increase exercise. Did a OB panel with an early 1 hour GTT and hemoglobin A1c. Also NIPT and carrier screens. I scheduled MFM appointment for anatomy scan. And will offer genetic counseling because of advanced maternal age. Urine today dip was clear there is negative protein, negative leukocytes, negative nitrites. Return in 4 weeks OB check 07/10/24 -?-?-?-?-?-?-?-?-?-?-?-?- 18w 0d 62.369 kg 113/72 absent unknown 20 135 active fetus active, no SAB complaints. patient going to vacation x 2 month , going to [facility]. patiwnt will have mfm appointment on return and do 3 hr GTT, discussed ptl precaution discuss safety and er precaution, hydrate, mfm appointment is schedule, discuss labs, discuss GDM diet and 1 hr results. patient will get 3 hr gtt on return 09/18/24 -?-?-?-?-?-?-?-?-?-?-?-?- 28w 0d 67.188 kg 111/68 absent unknown 28 135 active Patient returned from a 2-month vacation in [facility]. Reports good movement. She did not have time to do her 3-hour yet. She will do it in [place]. Patient has a follow-up in with maternal- medicine in 4 weeks. Reports good movement. Denies labor complaints Advised to get 3-hour GTT tomorrow. Continue vitamins and iron. Continue low-dose baby aspirin. Discussed GDM diet with patient. Discus sed labor precautions. And schedule weekly NST BPP to start at 32 weeks. Return in 2 weeks OB check 10/05/24 -?-?-?-?-?-?-?-?-?-?-?-?- 30w 3d 67.642 kg 104/68 absent cephalic 30 135 active Complains of itching over her abdomen. Patient read [employer] and got scared. Sometimes complains of feeling short of breath. She is worried that her iron is low again I had already started her on iron twice a day for an H&H of 11 and 33. Reports good movement. Denies contractions. Denies leaking. Denies bleeding. Comfort measures for leg cramps. Comfort measures for itching. Patient can use Claritin daily. Discussed mild varicose veins in her left leg. Elevate them and wear support hose of is not too hot. CMP with cholestasis labs today. Continue iron twice a day. Patient to increase green veggies. Increase fluids. Discussed labor precautions and kick count. Patient has a follow-up MFM for middle of October. 10/16/24 -?-?-?-?-?-?-?-?-?-?-?-?- 32w 0d 69.173 kg 105/66 absent cephalic 32 135 active Follow-up MFM October 25. Reports good movement. Denies leaking, bleeding, contractions. Patient wants to know since her 3-hour was okay can she eat what ever she wants Follow-up MFM Se ptember 11. Discussed labor precautions. Weekly NST BPP is pending. I will send patient this week to start. Continue vitamins and iron. Increase fluids. Kick count twice a day. I discussed diet and weight with patient 10/29/24 -?-?-?-?-?-?-?-?-?-?-?-?- 33w 6d 70.364 kg 125/87 absent cephalic 33 135 active Still complains of itching. Denies labor. Reports fetus is active. Her labs for cholestasis liver enzymes AST and ALT were normal. Bile acids were 16. BUN/creatinine ratio was 18 Disc ussed cholestasis labs with Dr. Simeon. The plan is to deliver patient at 37 weeks. Start ursodiol 200 p.o. twice daily. NST BPP to be done twice weekly. Discussed labor precautions and kick count twice a day. Plan for delivery at 37 weeks. Discussed cholestasis labs w [facility] Dr. Simeon. The plan is to deliver patient at 37 weeks. Start ursodiol 200 p.o. twice daily. NST BPP to be done twice weekly. Discussed labor precautions and kick count twice a day. Plan for delivery at 37 weeks.. 11/05/24 -?-?-?-?-?-?-?-?-?-?-?-?- 34w 6d 70.987 kg 109/65 absent cephalic 34 135 active Patient was happy to say that her ursodiol to 50 has been approved and she is taking it as directed. She reports that her itching is gone. Compliant with regular NST BPP. Fetus is active and moving. Denies leaking, bleeding, contractions schedule IOL 11/22/24 for cholestasis. GBS next visit. Discussed labor precautions and kick count. Continue that with the ursodiol and weekly NST BPP. Discussed danger signs symptoms and ER precautions 11/12/24 -?-?-?-?-?-?-?-?-?-?-?-?- 35w 6d 71.668 kg 125/79 absent cephalic 35 135 active Itching improved with estradiol. Reports good movement. Patient compliant with NST BPP twice a week. Induction scheduled for November 22, 2024. Denies leaking, bleeding, contractions Induction schedu led November 22, 2024. Discussed labor precautions and kick count twice a day. Continue with weekly NST BPP's. Discussed danger signs symptoms and ER precautions. Continue ursodiol. Return a week OB check AKUA Calculator Estimated Delivery Date Method Current WG Current Estimate 12/11/24 LMP (Certain) 35w 6d Other Estimates 12/11/24 Ultrasound #1 35w 6d 12/11/24 Ultrasound #2 35w 6d 12/11/24 Manual 35w 6d final AKUA: 11/15 10/08, EFW: 59% Notes Visit Date: 10/16/24 Last Updated by: Yashira Kapoor CNM 10/16: 3 hr gtt: wnl. 1 value high. Visit Date: 09/18/24 Last Updated by: Yashira Kapoor CNM 39 yo LMP :03/06/24. EDC: 12/11/24. 1hr gtt: 147, O+,abs-, rpr;;nr, rub imm, hbsag-, hiv-,hc-, GC/CT-, NIPT/carrier screen- Office Procedures OBC Clinic LOC & Office Proc's Nursing/Assessment Patient Status: Established Patient OB Clinic Nursing Assessment: Medication Reconciliation, Update PMH in EMR and Vital Signs OB Clinic Coordination of Care: AMA, Complex Care and Chronic Disease 1-5, Consent,records obtained, informed consent, Education Simp Pt/Fam, Lab and Imaging orders, Results/Orders obtained and Staff clarify orders Special Needs: Heart tones Miscellaneous Interventions: Culture Specimen Collection Established Patient Charge Established Patient Point Assignment: 170 Established Patient Point Charge: EP Level 5 (160-above) Assessment & Plan Diagnosis / Problem List (1) Cholestasis during in third trimester: Status: Acute (2) Encounter for supervision of high risk in third trimester, antepartum: Status: Acute Plan GBS today. Discussed labor precautions and kick count twice a day. Continue biweekly NST BPP. Discussed ER precautions and danger signs symptoms. Scheduled for induction November 22. Return in a week OB check Additional Plan Follow Up: 1 Week (obc)
[2024-11-12 14:25] VITALS: BP 125/79; PULSE 98; RESP 18; TEMP 36.6; O2SAT 97; BMI 26.9
== END 2024-11-12 14:50 | disposition home or self-care (01) ==
LOC: HODSOBC 14:12
PROVIDERS: Supervising Provider Advanced Practice Midwife; Visit Provider Advanced Practice Midwife
DX: O09.893 Supervision of other high risk pregnancies, third trimester (principal); O26.643 Intrahepatic cholestasis of pregnancy, third trimester; O09.523 Supervision of elderly multigravida, third trimester; O09.43 Supervision of pregnancy with grand multiparity, third trimester; Z3A.35 35 weeks gestation of pregnancy; Z36.85 Encounter for antenatal screening for Streptococcus B
CPT/HCPCS: 99215; G0463

== ENCOUNTER 2024-11-16 19:39 | Observation (INO) | payer MEDICAID, SELFPAY ==
[2024-11-16] VITALS (27 sets, daily range): BP systolic 107; BP diastolic 78; PULSE 73–96; RESP 20–100; TEMP 36.9; O2SAT 89–100; BMI 27.8
[2024-11-16] MEDS: SODIUM CHLORIDE 0.9% 1000 ML 1,000 ML 999 ML IV (20:50)
[2024-11-16 21:28] LABS: Collection Type, Urine Clean Catch
[2024-11-16 21:33] LABS: Basophils # (Auto) 0.0 Thou/mm3 (0.0-0.2); Basophils % (Auto) 0 % (0-2.5); Eosinophils # (Auto) 0.1 Thou/mm3 (0.0-0.5); Eosinophils % (Auto) 1 % (0-10); Hematocrit 32.9 % (36.0-46.0); Hemoglobin 11.0 g/dL (12.0-16.0); Immature Granulocytes Auto 0.06 Thou/mm3 (0.00-0.00); Lymphocytes # (Auto) 1.3 Thou/mm3 (1.0-4.8); Lymphocytes % (Auto) 24 % (10-50); Mean Corpuscular HGB Conc 33.4 g/dl (31.0-37.0); Mean Corpuscular Hemoglobin 28.1 pg (25.0-35.0); Mean Corpuscular Volume 84 fL (80-100); Monocytes # (Auto) 0.5 Thou/mm3 (0.0-0.8); Monocytes % (Auto) 9 % (0-12); Neutrophils # (Auto) 3.4 Thou/mm3 (1.8-7.7); Neutrophils % (Auto) 64 % (37-80); Nucleated Red Blood Cell # 0.00 Thou/mm3 (0.00-0.00); Nucleated Red Blood Cell % 0 /100 WBC (0); Platelet Count 199 Thou/mm3 (140-440); RDW Standard Deviation 43.6 fL (36.4-46.3); Red Blood Count 3.92 Miln/mm3 (4.00-5.20); White Blood Count 5.3 Thou/mm3 (3.6-11.0)
[2024-11-16 21:48] LABS: Amorphous Crystals,Urine Present (Absent); Bacteria,Urine 2+; Bilirubin,Urine Negative (Negative); Blood,Urine Negative (Negative); Clarity,Urine Clear (Clear/Hazy); Color,Urine Yellow (Lt Yel-Yel); Glucose, Urine Negative (Negative); Ketones,Urine Trace (Negative); Leukocyte Esterase,Urine Negative (Negative); Nitrite,Urine Negative (Negative); PH,Urine 5.5 (5.0-7.0); Protein,Urine Negative (Neg - Trace); RBC,Urine 7 /hpf (0-3); Specific Gravity,Urine 1.019 (1.001-1.035); Squamous Epithelial Cell,Urine 17 /hpf (0-5); Urobilinogen,Urine 2.0 mg/dL (0.0-1.0); WBC,Urine 5 /hpf (0-5)
[2024-11-16 21:51] LABS: Creatinine,Random Urine 102 mg/dL (30-125); Protein Total, Random Urine 25 mg/dL (1-14)
[2024-11-16 21:52] LABS: Fibrinogen 500 mg/dL (175-375); INR 1.0 (0.9-1.3); Partial Thromboplastin Time 26.8 Seconds (22.0-36.0); Prothrombin Time 10.6 Seconds (9.0-12.2)
[2024-11-16 22:08] LABS: Alanine Aminotransferase 15 U/L (10-49); Albumin, Serum 4.2 gm/dL (3.5-5.0); Albumin/Globulin Ratio 1.8 (1.2-2.2); Alkaline Phosphatase 88 U/L (46-116); Anion Gap 11 (7-16); Aspartate Amino Transferase 19 U/L (0-34); BUN/Creatinine Ratio 13 Ratio (12-20); Bilirubin,Total 0.5 mg/dL (0.3-1.2); Blood Urea Nitrogen 8 mg/dL (9-23); Calcium 9.6 mg/dL (8.3-10.6); Calcium (Corrected) 9.6 mg/dL (8.5-10.1); Carbon Dioxide 23.1 mMol/L (20.0-31.0); Chloride 101 mMol/L (98-107); Creatinine (Component) 0.6 mg/dL (0.6-1.3); Estimated Creatinine Clearance 121.2 mL/min (>60); Globulin 2.4 gm/dL (2.3-3.5); Glucose 89 mg/dL (74-106); Osmolality,Calculated 267 (275-295); Potassium 3.6 mMol/L (3.4-5.1); Sodium 135 mMol/L (136-145); Total Protein 6.6 gm/dL (5.7-8.2); Uric Acid 3.4 mg/dL (3.1-7.8); eGFR > 60 See Note
[2024-11-16 22:23] LABS: LDH (Lactate Dehydrogenase) 217 U/L (120-246)
== END 2024-11-16 22:35 | disposition home or self-care (01) ==
PROVIDERS: Admitting Provider Obstetrics & Gynecology; Visit Provider Obstetrics & Gynecology
DX: O47.03 False labor before 37 completed weeks of gestation, third trimester (principal); O26.893 Other specified pregnancy related conditions, third trimester; R06.02 Shortness of breath; R51.9 Headache, unspecified; Z3A.36 36 weeks gestation of pregnancy
CPT/HCPCS: 36415; 59025; 59899; 80053; 81001; 82570; 83615; 84156; 84550; 85025; 85384; 85610; 85730; J7030

== ENCOUNTER 2024-11-19 10:11 | Outpatient (AMB) | payer MEDICAID, SELFPAY ==
[2024-11-19 10:26] VITALS: BP 120/81; PULSE 81; RESP 16; TEMP 36.5; O2SAT 98; BMI 28.0
--- NOTE | 2024-11-19 10:26 | OBCLNT_ITS ---
Vital Signs 11/19/24 10:26 Height 1.63 m Height Method Stated Weight 74.162 kg Weight Measurement Method Standing Scale BMI 28.0 BP 120/81 Blood Pressure Source Automatic Cuff Blood Pressure Location Left Upper Arm Position Sitting Respiration 16 Pulse 81 Pulse Source Monitor Temp 97.7 F Temp Source Oral Pulse Oximetry (%) 98 Oxygen Delivery Method Room Air Allergies/Home Meds Allergies & Medications Allergies No Known Allergies Allergy (Verified 11/19/24 10:28) Medication Reconciliation aspirin 81 mg tablet,delayed release (Adult Aspirin Regimen) 81 mg PO QDAY 30 days #60 tabs 07/10/24 [Rx Confirmed 11/19/24] ferrous sulfate 325 mg (65 mg iron) tablet 325 mg PO BID #60 tabs 09/18/24 [Rx Confirmed 11/19/24] vitamin-ferrous fumarate 28 mg iron-folic acid 800 mcg tablet ( Vitamins with Minerals) 1 tab PO QDAY 30 days #60 tabs 09/18/24 [Rx Confirmed 11/19/24] ursodiol 200 mg capsule 200 mg PO BID #30 caps 10/29/24 [Rx Confirmed 11/19/24] ursodiol 200 mg capsule 200 mg PO BID #30 caps 10/30/24 [Rx Confirmed 11/19/24] ursodiol 200 mg capsule 200 mg PO BID #30 caps 10/30/24 [Rx Confirmed 11/19/24] ursodiol 250 mg tablet 250 mg PO BID #60 tabs 11/01/24 [Rx Confirmed 11/19/24] Intake Visit Data Collection New Patient or Established: Established Patient (seen at [facility] within 3 years) Reason for Visit:: CARE Seen by Clinical Staff ONLY (RN/MA): No Train Station Agent Required: No Do You Feel Safe at Home: Yes Authorities Contacted: N/A PCP or OBGYN visit in last 3 months: Yes Hx Now: Yes Are you currently on any form of Control: No Pain Present Currently: No Pain Scale Used: Suresh-Brown/Numerical Pain scale:: 0 Smoking Status Smoking Status: Never smoker Questionnaires Covid-19 Vaccine Questionnaire Has patient been vacinated for Covid-19 Have you been vacinated for Covid-19: Yes PHQ-9 PHQ-2 Over the last 2 weeks, how often have you been bothered by any of the following problems? 1. Little interest or pleasure in doing things: not at all 2. Feeling down, depressed, or hopeless: not at all Total score: 0 PHQ-9 3. Trouble falling or staying asleep, or sleeping too much: Not at all 4. Feeling tired or having little energy: Not at all 5. Poor appetite or overeating: Not at all 6. Feeling bad about yourself - or that you are a failure or have let yourself or your family down: Not at all 7. Trouble concentrating on things, such as reading the newspaper or watching television: Not at all 8. Moving or speaking so slowly that other people could have noticed? - Or the opposite - being so fidgety or restless that you have been moving around a lot more than usual: not at all 9. Thoughts that you would be better off or of hurting yourself in some way: Not at all Total score: 0 Source: Developed by Drs. Musa Calixto, Jayshree Chua, Luis Fernando Fowler and colleagues, with an educational juan from [employer]. 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 Patient is a transfer from the [facility]. Previous history of diabetes with her last on insulin. Last period was March 06, 2024. EDC 12/09/2024. Denies bleeding or cramping at this time. Patient does have nausea. I offered Zofran to patient and patient declined. Patient's going to try sea bands and other comfort measures. Discussed diet and weight gain with patient. Increase exercise. Did a OB panel with an early 1 hour GTT and hemoglobin A1c. Also NIPT and carrier screens. I scheduled MFM appointment for anatomy scan. And will offer genetic counseling because of advanced maternal age. Urine today dip was clear there is negative protein, negative leukocytes, negative nitrites. Return in 4 weeks OB check 07/10/24 -?-?-?-?-?-?-?-?-?-?-?-?- 18w 0d 62.369 kg 113/72 absent unknown 20 135 active fetus active, no SAB complaints. patient going to vacation x 2 month , going to [facility]. patiwnt will have mfm appointment on return and do 3 hr GTT, discussed ptl precaution discuss safety and er precaution, hydrate, mfm appointment is schedule, discuss labs, discuss GDM diet and 1 hr results. patient will get 3 hr gtt on return 09/18/24 -?-?-?-?-?-?-?-?-?-?-?-?- 28w 0d 67.188 kg 111/68 absent unknown 28 135 active Patient returned from a 2-month vacation in [facility] and [facility]. Reports good movement. She did not have time to do her 3-hour yet. She will do it in [place]. Patient has a follow-up in with maternal- medicine in 4 weeks. Reports good movement. Denies labor complaints Advised to get 3-hour GTT tomorrow. Continue vitamins and iron. Continue low-dose baby aspirin. Discussed GDM diet with patient. Discus sed labor precautions. And schedule weekly NST BPP to start at 32 weeks. Return in 2 weeks OB check 10/05/24 -?-?-?-?-?-?-?-?-?-?-?-?- 30w 3d 67.642 kg 104/68 absent cephalic 30 135 active Complains of itching over her abdomen. Patient read [employer] and got scared. Sometimes complains of feeling short of breath. She is worried that her iron is low again I had already started her on iron twice a day for an H&H of 11 and 33. Reports good movement. Denies contractions. Denies leaking. Denies bleeding. Comfort measures for leg cramps. Comfort measures for itching. Patient can use Claritin daily. Discussed mild varicose veins in her left leg. Elevate them and wear support hose of is not too hot. CMP with cholestasis labs today. Continue iron twice a day. Patient to increase green veggies. Increase fluids. Discussed labor precautions and kick count. Patient has a follow-up MFM for middle of October. 10/16/24 -?-?-?-?-?-?-?-?-?-?-?-?- 32w 0d 69.173 kg 105/66 absent cephalic 32 135 active Follow-up MFM October 25. Reports good movement. Denies leaking, bleeding, contractions. Patient wants to know since her 3-hour was okay can she eat what ever she wants Follow-up MFM Se ptember 11. Discussed labor precautions. Weekly NST BPP is pending. I will send patient this week to start. Continue vitamins and iron. Increase fluids. Kick count twice a day. I discussed diet and weight with patient 10/29/24 -?-?-?-?-?-?-?-?-?-?-?-?- 33w 6d 70.364 kg 125/87 absent cephalic 33 135 active Still complains of itching. Denies labor. Reports fetus is active. Her labs for cholestasis liver enzymes AST and ALT were normal. Bile acids were 16. BUN/creatinine ratio was 18 Disc ussed cholestasis labs with Dr. Simeon. The plan is to deliver patient at 37 weeks. Start ursodiol 200 p.o. twice daily. NST BPP to be done twice weekly. Discussed labor precautions and kick count twice a day. Plan for delivery at 37 weeks. Discussed cholestasis labs w lissette Simeon. The plan is to deliver patient at 37 weeks. Start ursodiol 200 p.o. twice daily. NST BPP to be done twice weekly. Discussed labor precautions and kick count twice a day. Plan for delivery at 37 weeks.. 11/05/24 -?-?-?-?-?-?-?-?-?-?-?-?- 34w 6d 70.987 kg 109/65 absent cephalic 34 135 active Patient was happy to say that her ursodiol to 50 has been approved and she is taking it as directed. She reports that her itching is gone. Compliant with regular NST BPP. Fetus is active and moving. Denies leaking, bleeding, contractions schedule IOL 11/22/24 for cholestasis. GBS next visit. Discussed labor precautions and kick count. Continue that with the ursodiol and weekly NST BPP. Discussed danger signs symptoms and ER precautions 11/12/24 -?-?-?-?-?-?-?-?-?-?-?-?- 35w 6d 71.668 kg 125/79 absent cephalic 35 135 active Itching improved with estradiol. Reports good movement. Patient compliant with NST BPP twice a week. Induction scheduled for November 22, 2024. Denies leaking, bleeding, contractions Induction schedu led November 22, 2024. Discussed labor precautions and kick count twice a day. Continue with weekly NST BPP's. Discussed danger signs symptoms and ER precautions. Continue ursodiol. Return a week OB check 11/19/24 -?-?-?-?-?-?-?-?-?-?-?-?- 36w 6d 74.162 kg 120/81 occasional breech 36 1 50 Itching is improved with ursodiol. Reports good movement. Denies leaking or bleeding. Occasional contraction. Continue weekly NST BPP. Patient to continue ursodiol. Discussed danger signs and symptoms and ER precautions. Because baby's breech presentation patient was sent to the labor and delivery and will schedule C- section for breech. Kick count twice a day. And continue ursodiol AKUA Calculator Estimated Delivery Date Method Current WG Current Estimate 12/11/24 LMP (Certain) 36w 6d Other Estimates 12/11/24 Ultrasound #1 36w 6d 12/11/24 Ultrasound #2 36w 6d 12/11/24 Manual 36w 6d final AKUA: 11/15 10/08, EFW: 59% Notes Visit Date: 11/19/24 Last Updated by: Yashira Kapoor CNM 11/19: gbs- Vero stasis labs: Bilirubin: 0.2, Bile Acida: 16.5 Visit Date: 10/16/24 Last Updated by: Yashira Kapoor CNM 2: 3 hr gtt: wnl. 1 value high. Visit Date: 09/18/24 Last Updated by: Yashira Kapoor CNM 39 yo LMP :03/06/24. EDC: 12/11/24. 1hr gtt: 147, O+,abs-, rpr;;nr, rub imm, hbsag-, hiv-,hc-, GC/CT-, NIPT/carrier screen- Office Procedures OBC Clinic LOC & Office Proc's Nursing/Assessment Patient Status: Established Patient OB Clinic Nursing Assessment: Medication Reconciliation, Update PMH in EMR and Vital Signs OB Clinic Coordination of Care: AMA, Complex Care and Chronic Disease 1-5, Education Complex Pt/Fam, Consent,records obtained, informed consent, 1 Ins Authorization, Results/Orders obtained and Staff clarify orders Special Needs: Heart tones Established Patient Charge Established Patient Point Assignment: 160 Established Patient Point Charge: EP Level 5 (160-above) Assessment & Plan Diagnosis / Problem List (1) Cholestasis during in third trimester: Status: Acute (2) Encounter for supervision of high risk in third trimester, antepartum: Status: Acute (3) Advanced maternal age (AMA) in : Status: Acute Plan schedule for breech presentation instead of induction. Discussed danger signs symptoms and ER precautions. Kick count twice a day. Continue ursodiol. Continue weekly NST BPP Additional Plan Follow Up: 1 Week (obc)
== END 2024-11-19 10:55 | disposition home or self-care (01) ==
LOC: HODSOBC 10:11
PROVIDERS: Supervising Provider Advanced Practice Midwife; Visit Provider Advanced Practice Midwife
DX: O09.523 Supervision of elderly multigravida, third trimester (principal); O09.893 Supervision of other high risk pregnancies, third trimester; O26.643 Intrahepatic cholestasis of pregnancy, third trimester; O32.1XX0 Maternal care for breech presentation, not applicable or unspecified; Z3A.36 36 weeks gestation of pregnancy
CPT/HCPCS: 99215; G0463

== ENCOUNTER 2024-11-19 12:12 | Outpatient (RCR) | payer MEDICAID, SELFPAY ==
--- NOTE | 2024-10-23 13:04 | XR_ITS ---
Examination: Biophysical profile, ultrasound Date and time of exam: October 23, 2024 1310 hours INDICATIONS: Diagnosis advanced maternal age Technique: Multiple transabdominal sonographic images of the pelvis abdomen obtained. Attention is directed to the breathing movement, gross body movement, amniotic fluid volume and tone. Findings: Amniotic fluid index 6.5 cm Total biophysical profile is 8 of 8. breathing movement is 2. Gross body movement is 2. tone is 2. Qualitative amniotic fluid volume is 2 Impression: Biophysical profile is 8 of 8.
[2024-10-23 13:45] VITALS: BP 100/58; PULSE 86; RESP 16; TEMP 36.8
--- NOTE | 2024-10-30 12:41 | XR_ITS ---
Examination: Biophysical profile, ultrasound Date and time of exam: October 30, 2024 at 12:50 PM INDICATIONS: Diagnosis advanced maternal age Technique: Multiple transabdominal sonographic images of the pelvis abdomen obtained. Attention is directed to the breathing movement, gross body movement, amniotic fluid volume and tone. Findings: Amniotic fluid index 7.5 cm Total biophysical profile is 8 of 8. breathing movement is 2. Gross body movement is 2. tone is 2. Qualitative amniotic fluid volume is 2 Impression: Biophysical profile is 8 of 8.
[2024-10-30 13:25] VITALS: BP 100/57; PULSE 88; RESP 16
--- NOTE | 2024-11-05 12:29 | XR_ITS ---
Examination: Biophysical profile, ultrasound Date and time of exam: November 05, 2024 12:35 PM INDICATIONS: Diagnosis advanced maternal age Technique: Multiple transabdominal sonographic images of the pelvis abdomen obtained. Attention is directed to the breathing movement, gross body movement, amniotic fluid volume and tone. Findings: Amniotic fluid index 11.4 cm Total biophysical profile is 8 of 8. breathing movement is 2. Gross body movement is 2. tone is 2. Qualitative amniotic fluid volume is 2 Impression: Biophysical profile is 8 of 8.
[2024-11-05 12:58] VITALS: BP 96/53; PULSE 86; RESP 16; TEMP 36.7
--- NOTE | 2024-11-08 13:01 | XR_ITS ---
Examination: Biophysical profile, ultrasound Date and time of exam: November 08, 2024 1322 hours INDICATIONS: Diagnosis high risk Technique: Multiple transabdominal sonographic images of the pelvis abdomen obtained. Attention is directed to the breathing movement, gross body movement, amniotic fluid volume and tone. Findings: Amniotic fluid index 6.2 cm Total biophysical profile is 8 of 8. breathing movement is 2. Gross body movement is 2. tone is 2. Qualitative amniotic fluid volume is 2 Impression: Biophysical profile is 8 of 8.
[2024-11-08 14:04] VITALS: BP 93/51; PULSE 88; RESP 16; TEMP 36.7
--- NOTE | 2024-11-12 12:54 | XR_ITS ---
Examination: Biophysical profile, ultrasound Date and time of exam: November 12, 2024, 1257 hours INDICATIONS: Diagnosis cholestasis of , diagnosis advanced maternal age Technique: Multiple transabdominal sonographic images of the pelvis abdomen obtained. Attention is directed to the breathing movement, gross body movement, amniotic fluid volume and tone. Findings: Amniotic fluid index 8.2 cm Total biophysical profile is 8 of 8. breathing movement is 2. Gross body movement is 2. tone is 2. Qualitative amniotic fluid volume is 2 Impression: Biophysical profile is 8 of 8.
[2024-11-12 13:35] VITALS: BP 97/55; PULSE 83; RESP 16; TEMP 36.7
--- NOTE | 2024-11-15 13:08 | XR_ITS ---
Examination: Biophysical profile, ultrasound Date and time of exam: November 15, 2024 1310 hours INDICATIONS: Diagnosis cholestasis of , diagnosis advanced maternal age Technique: Multiple transabdominal sonographic images of the pelvis abdomen obtained. Attention is directed to the breathing movement, gross body movement, amniotic fluid volume and tone. Findings: Amniotic fluid index 7.1 cm Total biophysical profile is 8 of 8. breathing movement is 2. Gross body movement is 2. tone is 2. Qualitative amniotic fluid volume is 2 Impression: Biophysical profile is 8 of 8.
[2024-11-15 13:38] VITALS: BP 118/70; PULSE 70; RESP 16; TEMP 36.7
--- NOTE | 2024-11-19 12:28 | XR_ITS ---
Examination: Biophysical profile, ultrasound Date and time of exam: November 19, 2024, 1244 hours INDICATIONS: Diagnosis cholestasis of , diagnosis advanced maternal age Technique: Multiple transabdominal sonographic images of the pelvis abdomen obtained. Attention is directed to the breathing movement, gross body movement, amniotic fluid volume and tone. Findings: Amniotic fluid index 6.1 cm Total biophysical profile is 8 of 8. breathing movement is 2. Gross body movement is 2. tone is 2. Qualitative amniotic fluid volume is 2 Impression: Biophysical profile is 8 of 8.
[2024-11-19 13:06] VITALS: BP 117/67; PULSE 96; RESP 16; TEMP 36.6
== END 2024-11-19 23:59 | disposition home or self-care (01) ==
LOC: S4S1 12:12
PROVIDERS: PCP Physician Assistant; Referring Provider Advanced Practice Midwife; Visit Provider Advanced Practice Midwife
DX: O09.93 Supervision of high risk pregnancy, unspecified, third trimester (principal); O09.523 Supervision of elderly multigravida, third trimester; Z3A.36 36 weeks gestation of pregnancy
CPT/HCPCS: 59025; 76819; J1100; J1885; J2210; J2274; J2371; J2405; J2590; J3010; J2270

== ENCOUNTER 2024-11-21 04:45 | Inpatient (IN) | payer MEDICAID, SELFPAY ==
[2024-11-21] VITALS (43 sets, daily range): BP systolic 98–132; BP diastolic 57–99; PULSE 61–92; RESP 14–18; TEMP 36.6–37.4; O2SAT 96–100; BMI 27.3
[2024-11-21] MEDS: RINGERS LACTATED 1000 ML 1,000 ML 100 ML IV ×2 (05:55→22:42)
[2024-11-21 06:11] LABS: Basophils # (Auto) 0.0 Thou/mm3 (0.0-0.2); Basophils % (Auto) 0 % (0-2.5); Eosinophils # (Auto) 0.1 Thou/mm3 (0.0-0.5); Eosinophils % (Auto) 2 % (0-10); Hematocrit 32.7 % (36.0-46.0); Hemoglobin 11.1 g/dL (12.0-16.0); Immature Granulocytes Auto 0.04 Thou/mm3 (0.00-0.00); Lymphocytes # (Auto) 1.3 Thou/mm3 (1.0-4.8); Lymphocytes % (Auto) 24 % (10-50); Mean Corpuscular HGB Conc 33.9 g/dl (31.0-37.0); Mean Corpuscular Hemoglobin 28.1 pg (25.0-35.0); Mean Corpuscular Volume 83 fL (80-100); Monocytes # (Auto) 0.5 Thou/mm3 (0.0-0.8); Monocytes % (Auto) 9 % (0-12); Neutrophils # (Auto) 3.4 Thou/mm3 (1.8-7.7); Neutrophils % (Auto) 64 % (37-80); Nucleated Red Blood Cell # 0.00 Thou/mm3 (0.00-0.00); Nucleated Red Blood Cell % 0 /100 WBC (0); Platelet Count 189 Thou/mm3 (140-440); RDW Standard Deviation 42.4 fL (36.4-46.3); Red Blood Count 3.95 Miln/mm3 (4.00-5.20); White Blood Count 5.3 Thou/mm3 (3.6-11.0)
[2024-11-21 06:58] LABS: Syphilis Nonreactive (Nonreactive)
[2024-11-21] MEDS: FAMOTIDINE INJ 10 MG/ML VIAL 2 ML 20 MG IV (07:29)
[2024-11-21] MEDS: ceFAZolin/D5W 2 GM IV 2 GM/100 ML BAG IV (07:31)
[2024-11-21] MEDS: CITRIC ACID/SODIUM CITR 15 ML UDC (BICITRA) 30 ML PO (07:33)
--- NOTE | 2024-11-21 07:48 | PD.LDHP ---
Documentation for date of: 11/21/24 OB Labor/Induct. HPI History of Present Illness Chief complaint: Here for scheduled for breech, cholestasis 37 weeks : 8 Term pregnancies: 4 pregnancies: 0 Living children: 4 History of Abortions: Spontaneous and Elective: 3 History of Vaginal deliveries: 4 History of sections: No History of : No Date of last menstrual period: 03/06/24 AKUA: 12/11/24 Gestational Age (weeks): 37 Gestational Age (days): 1 Gestational age based on last menstrual period: 37 History of present illness: Patient is a 39-year-old -0-3-4 at 37 1/7 weeks with an EDC of 12/11/2024 with a breech presentation and cholestasis. Patient is scheduled for primary low-transverse section. On the day of admission, she reports good movement no loss of fluids no vaginal bleeding. Bedside ultrasound was performed by myself revealing a breech presentation. Patient is consented for a primary low-transverse section. She understands the risk of the procedure including the risk of bleeding, infection, blood transfusion, damage to bowel, bladder, blood vessels nerves or other organs, prolonged hospital stay and further surgery should any complications occur. All questions were answered all consents were signed. Her is at bedside. History of Present Dating criteria: LMP confirmed by 1st trimester US Adequate Care: Yes Ultrasounds: normal mid trimester US (Was followed with MFM's secondary to AMA normal ultrasounds) Obstetrical complications: other (Cholestasis, breech presentation) Medical complications: none Labs Maternal Blood Type: O Pos Labs: Positive: Rubella Titre, Negative: RPR, Hepatitis B, HIV, Chlamydia and Group Beta Strep and Unknown: Herpes Type 1, Herpes Type 2 and Covid-19 Past Medical History Surgical History SURGICAL: Negative Section Past Medical History Comments PMH COMMENT: Patient denies any significant past medical history including asthma diabetes or hypertension. She had a history of gestational diabetes and one of her children. Patient states she has had vaginal delivery x 4 in the past without complications. Meds Home Medications and Allergies Allergies Allergy/AdvReac Type Severity Reaction Status Date / Time No Known Allergies Allergy Verified 11/19/24 10:28 OB Exam Physical Exam Vital signs: Temp Pulse Resp BP Pulse Ox O2 Del Method 98.5 F 80 18 110/75 98 Room Air 11/21/24 05:13 11/21/24 07:47 11/21/24 05:13 11/21/24 07:47 11/21/24 07:23 11/21/24 05:13 Constitutional Constitutional: no acute distress Routine Cardiovascular Exam Cardiovascular: Present RRR Routine Abdominal Exam Abdominal: Present soft and normoactive bowel sounds Comments: Fundus approximately 40 weeks size. Ultrasound reveals breech presentation large amount of amniotic fluid posterior fundal placenta grade 2-3. Detailed Labor and Delivery Exam Presentation: Breech monitor accelerations: 15x15 monitor decelerations: None senior care variability: Moderate (11-25) Contraction frequency (min): Irregular Routine Extremities Exam Extremities: Present full ROM Routine Skin Exam Skin: Present intact, dry and warm Routine Psychiatric Exam Psychiatric: Present normal affect and normal thought process OB Results Labs 11/21/24 05:35 Labs: Short CBC 11/21/24 Range/Units 05:35 WBC 5.3 (3.6-11.0) Thou/mm3 Hgb 11.1 L (12.0-16.0) g/dL Hct 32.7 L (36.0-46.0) % Plt Count 189 (140-440) Thou/mm3 OB Assessment & Plan Assessment and Plan (1) Cholestasis during in third trimester: Status: Acute Assessment and plan: On your O's a dial. As patient is 37 weeks, we will deliver. (2) Encounter for supervision of high risk in third trimester, antepartum: Status: Acute (3) Advanced maternal age (AMA) in : Status: Acute Assessment and plan: Normal level 2 ultrasounds, comanaged with maternal- medicine specialist. On baby aspirin daily as of 2 days ago. (4) Breech presentation of fetus: Status: Acute Assessment and plan: For primary low-transverse section. Additional Plan Induction method: none Additional Plan Comment: Consented for primary low-transverse section. Risks were discussed. All consents signed. Patient consented with her . All questions answered to patient's satisfaction. Typical postop course discussed with patient and her . (4) Breech presentation of fetus Qualifiers: Fetus number: single or unspecified fetus Qualified Code(s): O32.1XX0 - Maternal care for breech presentation, not applicable or unspecified
[2024-11-21] MEDS: ACETAMINOPHEN IVPB 1,000 MG/100 ML VIAL 250 MG IV (11:02)
[2024-11-21] MEDS: OXYTOCIN in NS 20 units 20 UNIT/1,000 ML BAG 125 UNIT IV (14:14)
[2024-11-21] MEDS: KETOROLAC INJ 30 MG/ML VIAL IVP (17:51)
[2024-11-21] MEDS: HYDROcodone/APAP 5/325 TABLET 1 TAB PO (20:20)
--- NOTE | 2024-11-21 20:39 | PD.LDDELS ---
Data ([facility]) Data Hx Section: No Maternal Blood Type: O Pos Rubella Titre: Positive RPR: Non-reactive Labs: Negative: RPR, Hepatitis B, HIV, Chlamydia, Gonorrhea and Group Beta Strep : 8 Term: 4 : 0 Livin Abortions: Spontaneous & Theraputic: 3 Delivery Data ([facility]) Labor Data Induction/Augmentation Agent: None ROM date: 11/21/24 ROM time: 08:31 Amniotic membrane rupture type: Artificial Amniotic fluid description: Clear Delivery Data EDC: 12/11/24 EDC calculated by:: LMP/early US confirmation Date of arrival to unit: 11/21/24 Time of arrival to unit: 05:00 [place] delivery date: 11/21/24 delivery time: 08:31 Gestational age (weeks): 37 Gestational age (days): 1 Placenta delivery date: 11/21/24 Placenta delivery time: 08:33 Delivered by: [facility] ([facility]) Delivery nurse: Cari Saleh RN, Stefano Duggan RN [place] nurse: Nelly Lisa RN Residential Life Director at delivery: No Support person(s) at delivery: FOB Other staff at delivery: kimber, wellington, paz, [email or web address] Delivery Method Delivery method: Low Transverse Presentation: Breech Anesthesia Type Anesthesia Type: Spinal Delivery Room Medications Delivery room medications: Methergine 0.2 mg IM and Pitocin 20 u IV Placenta Placenta delivery description: Spontaneous Cord blood sent to lab: Yes cord blood collection: Cord Blood Type, Arterial Cord Blood Gas and Venous Cord Blood Gas Episiotomy Episiotomy description: None EBL Estimated blood loss (ml): 600 Umbilical Cord cord description: 3 Vessels Additional Procedures See op report for further details. Complications Complications: None Data ([place]) Data order: 1 's gender: Male weight (gms): 3240 g Weight (pounds): 7 lbs and 2.3 ozs 1 minute: 9 5 minutes: 9
--- NOTE | 2024-11-21 20:42 | ESOP_ITS ---
Operative Note - TIRE CARE MANAGER Procedure Date of procedure: 11/21/24 Procedure Performed: Primary low-transverse section Indication: The patient is a 39-year-old -0-3-4 with cholestasis, on on Ursodiol with a breech presentation. For primary low-transverse section at 37 1/7 weeks. Pre-Op diagnosis: 1. IUP 37 1/7 weeks 2. Breech presentation 3. Cholestasis on Urosidiol Post-Op diagnosis: Same Anesthesia type: Spinal Procedure description: After obtaining informed consent, the patient was brought back to the operating room, and spinal anesthesia administered. She was then prepped and draped in the dorsal supine position with a leftward tilt in a normal sterile fashion. A Perez catheter was inserted into the patient's bladder. The patient was given 2 g of Ancef by anesthesia. A Pfannenstiel skin incision was made with a scalpel and carried down to the underlying fascia. The fascia was incised the midline, and the fascial incision extended laterally using Winters scissors. The superior aspect the fascia was grasped with Carey clamps and the underlying rectus muscles dissected off using blunt and sharp dissection. This was repeated in the inferior aspect the incision. The rectus muscle were in the midline and the peritoneum was picked up and entered sharply with Metzenbaums. This was extended superiorly and inferiorly with good visualization of the bladder. The bladder blade was inserted, and the uterus was incised in a low transverse fashion using a scalpel above the bladder reflection. The uterine incision was extended laterally using blunt dissection with the surgeon's fingers. The bag encinas was ruptured, and copious clear fluid was noted. The bladder blade was removed, and the infant was delivered atraumatically in a deysi breech presentation. The cord was clamped and cut after waiting 1 minute as the baby was vigorous. The infant was handed off to the waiting pediatric staff. Cord blood and cord gases were sent. The placenta was then manually removed, and the uterus exteriorized and cleared of all clots and debris. The uterine incision was repaired with 0 Monocryl in a running locked fashion. Excellent hemostasis was noted. The uterus was returned to the patient's abdominal cavity and copious irrigation carried out with warm normal saline the uterine incision was noted to be hemostatic after placement of 2 [id number] sutures of 2-0 chromic at the incision site. After ensuring the rectus muscles were hemostatic, these were reapproximated in the midline using a running suture of 0 Monocryl. The fascia was closed with 0 Vicryl in a running fashion. The subcutaneous tissues were irrigated, and found to be hemostatic. Some Surgicel hemostatic powder was placed to obtain excellent hemostasis. The skin was closed with a subcuticular suture of 4-0 Monocryl and a Dermabond dressing was placed. The patient tolerated the procedure well. Sponge, lap, needle, and instrument counts were correct x 2. The patient went to the recovery area awake and in stable condition. Fluids: crystalloid Fluid amount (mL): 1,400 Urine output (mL): 400 Specimen: none Implants: None Estimated blood loss (ml): 600 Findings: Liveborn male in a deysi breech presentation with no nuchal cord and no meconium .Apgars were 9 and 9 weight was 3260 g or 7 pounds 2 ounces. The placenta was complete, spontaneous, grossly normal. Patient's uterus tubes and ovaries appeared grossly normal. Cord gases were sent. Complications: none Surgical staff Operation Date: 11/21/24 07:45 Case Staff NUCLEAR OPERATIONS SPECIALIST: Reilly Garcia NUCLEAR OPERATIONS SPECIALIST: Chip CANTOR RN First Assistant: Yashira Ruiz Diagnosis Discharge Diagnosis (1) Breech presentation of fetus: Status: Acute Problem details: Status post primary low-transverse section 11/21/2024 (2) Cholestasis during in third trimester: Status: Acute (3) Advanced maternal age (AMA) in : Status: Acute (4) Grand multiparity with current : Status: Acute Problem List Completed Was Problem List Reviewed/Reconciled?: Yes (1) Breech presentation of fetus Qualifiers: Fetus number: single or unspecified fetus Qualified Code(s): O32.1XX0 - Maternal care for breech presentation, not applicable or unspecified (4) Grand multiparity with current Qualifiers: Trimester: third trimester Qualified Code(s): O09.43 - Supervision of with grand multiparity, third trimester
[2024-11-22] MEDS: KETOROLAC INJ 30 MG/ML VIAL IVP ×3 (00:15→18:23)
[2024-11-22 00:18] VITALS: BP 100/62; PULSE 60; RESP 17; TEMP 37.1; O2SAT 98
[2024-11-22 04:05] VITALS: BP 100/64; PULSE 65; RESP 16; TEMP 36.6; O2SAT 97
[2024-11-22] MEDS: HYDROcodone/APAP 5/325 TABLET 2 TAB PO ×2 (05:08→16:14)
[2024-11-22 06:05] LABS: Basophils # (Auto) 0.1 Thou/mm3 (0.0-0.2); Basophils % (Auto) 0 % (0-2.5); Eosinophils # (Auto) 0.2 Thou/mm3 (0.0-0.5); Eosinophils % (Auto) 1 % (0-10); Hematocrit 28.9 % (36.0-46.0); Hemoglobin 9.8 g/dL (12.0-16.0); Immature Granulocytes Auto 0.10 Thou/mm3 (0.00-0.00); Lymphocytes # (Auto) 1.9 Thou/mm3 (1.0-4.8); Lymphocytes % (Auto) 16 % (10-50); Mean Corpuscular HGB Conc 33.9 g/dl (31.0-37.0); Mean Corpuscular Hemoglobin 28.6 pg (25.0-35.0); Mean Corpuscular Volume 84 fL (80-100); Monocytes # (Auto) 0.9 Thou/mm3 (0.0-0.8); Monocytes % (Auto) 8 % (0-12); Neutrophils # (Auto) 8.4 Thou/mm3 (1.8-7.7); Neutrophils % (Auto) 73 % (37-80); Nucleated Red Blood Cell # 0.00 Thou/mm3 (0.00-0.00); Nucleated Red Blood Cell % 0 /100 WBC (0); Platelet Count 181 Thou/mm3 (140-440); RDW Standard Deviation 43.4 fL (36.4-46.3); Red Blood Count 3.43 Miln/mm3 (4.00-5.20); White Blood Count 11.4 Thou/mm3 (3.6-11.0)
[2024-11-22 08:40] VITALS: BP 105/64; PULSE 62; RESP 18; TEMP 36.6; O2SAT 98
[2024-11-22] MEDS: DOCUSATE SOD 100 MG CAPSULE PO (08:44)
[2024-11-22 11:45] VITALS: BP 103/67; PULSE 64; RESP 18; TEMP 36.3; O2SAT 98
--- NOTE | 2024-11-22 13:32 | ESPR_ITS ---
Subjective Subjective Interval history: Patient has no complaints OF Headache Blurry vision Chest pain Palpitations Shortness of breath Nausea or vomiting or constipation Back pain Dysuria Dizziness calf pain She is voiding spontaneously after catheter removal Passing flatus Lochia minimal Exam Vital Signs Temp Pulse Resp BP Pulse Ox O2 Del Method 97.4 F 64 18 103/67 98 Room Air 11/22/24 11:45 11/22/24 11:45 11/22/24 11:45 11/22/24 11:45 11/22/24 11:45 11/22/24 11:45 Narrative Exam alert x3 chest clear CVS rrr NO THYROMEGALY Uterus is nontender Uterus is firm Just below the umbilicus Bowel sounds present Abdomen soft no hernias noted/no CVAT Incision CDI No drainage Appropriately tender No calf tenderness Edema Objective Labs 11/22/24 04:42 Labs: Laboratory Results - last 24 hr 11/22/24 04:42 WBC 11.4 H D RBC 3.43 L Hgb 9.8 L Hct 28.9 L MCV 84 MCH 28.6 MCHC 33.9 RDW Std Deviation 43.4 Plt Count 181 Neut % (Auto) 73 Lymph % (Auto) 16 [place] % (Auto) 8 Eos % (Auto) 1 Baso % (Auto) 0 Neut # (Auto) 8.4 H Lymph # (Auto) 1.9 [place] # (Auto) 0.9 H Eos # (Auto) 0.2 Baso # (Auto) 0.1 Immature Gran # (Auto) 0.10 H Absolute Nucleated RBC 0.00 Immature Gran % 1 H Nucleated RBC % 0 Assessment & Plan Problem List (1) Breech presentation of fetus: Problem details: Status post primary low-transverse section 11/21/2024 Status: Acute (2) Cholestasis during in third trimester: Status: Acute (3) Advanced maternal age (AMA) in : Status: Acute (4) Grand multiparity with current : Status: Acute Plan Comment Plan Comment: Continue her routine postoperative care Advance diet as tolerated Likely discharge in the morning Time Spent With Patient Time: Total time spent is greater than 50% in coordination of care (as documented) at patient's floor/unit and/or counseling patient: Time with patient: less than 15 minutes
[2024-11-22 16:15] VITALS: BP 101/65; PULSE 61; RESP 18; TEMP 36.8
[2024-11-22 20:10] VITALS: BP 103/66; PULSE 70; RESP 16; TEMP 36.9; O2SAT 98
[2024-11-22] MEDS: SIMETHICONE 80 MG CHEW PO (20:23)
[2024-11-23 00:25] VITALS: BP 100/64; PULSE 73; RESP 18; TEMP 36.9; O2SAT 100
[2024-11-23] MEDS: KETOROLAC INJ 30 MG/ML VIAL IVP ×2 (00:29→05:47)
[2024-11-23 03:15] VITALS: BP 109/58; PULSE 69; RESP 18; TEMP 36.7; O2SAT 99
[2024-11-23] MEDS: HYDROcodone/APAP 5/325 TABLET 2 TAB PO (03:29)
[2024-11-23] MEDS: Milk Of Magnesia Susp 30 ML UDC PO (05:47)
[2024-11-23 07:30] VITALS: BP 110/66; PULSE 63; RESP 17; TEMP 36.4; O2SAT 98
[2024-11-23] MEDS: DOCUSATE SOD 100 MG CAPSULE PO (08:48)
--- NOTE | 2024-11-23 10:06 | PD.LDPPPRG ---
Subjective Subjective Interval history: Patient doing well overall. Had a lot of gas pains last night and thus didn't sleep much. No BM yet even after MOM last night, passing some gas. She is ambulating no lightheadedness/dizziness. Voiding spontaneously since shahid was removed, no issues. No nausea/vomiting, but has been reluctant to eat because of gas pains. No fevers/chills, no CP/SOB. Exam Vital Signs Temp Pulse Resp BP Pulse Ox O2 Del Method 97.6 F 63 17 110/66 98 Room Air 11/23/24 07:30 11/23/24 07:30 11/23/24 07:30 11/23/24 07:30 11/23/24 07:30 11/23/24 07:30 Narrative Exam General: well developed, well nourished, no acute distress, conversant Cardiac: normal heart rate Lungs: breathing without distress Abdomen: soft, post-gravid, non-tender, no rebound or guarding, pfannenstiel incision covered by dry/clean/intact prineo bandage. Incision well reapproximated. No erythema, drainage or induration. Fundus firm at u-2cm. Extremities: no pain with palpation of calves, 1+ edema of BLE Objective Labs 11/22/24 04:42 Assessment & Plan Problem List (1) delivery delivered: Status: Acute Assessment and plan: Katherine is a 39yo G8 now P5035 s/p uncomplicated PLTCS at 37w1d for IHCP with breech presentation, doing well on POD 2. Vitals wnl, benign exam. Hemodynamically stable with no evidence of infection. Appropriate change in H/H from 11.1 to 9.8. No BM yet and still having gas related pains, didn't sleep well last night. Requests to stay one more day. complicated by: AMA IHCP Breech Plan: -Continue routine /post-op care -Encouraged patient to walk today to get bowel mobilized and address gas pains. Will trial miralax. -Regular diet -motrin 800mg PO Q8hr, norco 5/325mg PO Q6hr prn pain -Encourage ambulation and use of IS -Anticipate discharge home tomorrow if meeting all milestones (2) Breech presentation of fetus: Problem details: Status post primary low-transverse section 11/21/2024 Status: Acute (3) Cholestasis during in third trimester: Status: Acute (4) Advanced maternal age (AMA) in : Status: Acute (5) Grand multiparity with current : Status: Acute Time Spent With Patient Time: Total time spent is greater than 50% in coordination of care (as documented) at patient's floor/unit and/or counseling patient:
[2024-11-23] MEDS: POLYETHYLENE GLYCOL 17 GM PACKET PO (11:27)
[2024-11-23 13:52] VITALS: BP 116/72; PULSE 65; RESP 14; TEMP 36.9
[2024-11-23] MEDS: IBUPROFEN TAB 400 MG TABLET 800 MG PO ×2 (13:55→21:45)
[2024-11-23] MEDS: HYDROcodone/APAP 5/325 TABLET 1 TAB PO ×2 (17:44→21:44)
[2024-11-23 20:52] VITALS: BP 126/80; PULSE 71; RESP 20; TEMP 36.5; O2SAT 97
[2024-11-23] MEDS: SIMETHICONE 80 MG CHEW PO (21:46)
[2024-11-24 04:47] VITALS: BP 123/64; PULSE 63; RESP 18; TEMP 36.7; O2SAT 98
[2024-11-24] MEDS: SIMETHICONE 80 MG CHEW PO (05:09)
[2024-11-24] MEDS: IBUPROFEN TAB 400 MG TABLET 800 MG PO ×2 (05:09→14:35)
[2024-11-24 07:40] VITALS: BP 121/73; PULSE 67; RESP 16; TEMP 37.1; O2SAT 98
[2024-11-24] MEDS: POLYETHYLENE GLYCOL 17 GM PACKET PO (08:22)
[2024-11-24] MEDS: DOCUSATE SOD 100 MG CAPSULE PO (08:23)
[2024-11-24] MEDS: HYDROcodone/APAP 5/325 TABLET 1 TAB PO (08:23)
[2024-11-24 09:17] LABS: Basophils # (Auto) 0.0 Thou/mm3 (0.0-0.2); Basophils % (Auto) 0 % (0-2.5); Eosinophils # (Auto) 0.1 Thou/mm3 (0.0-0.5); Eosinophils % (Auto) 2 % (0-10); Hematocrit 28.0 % (36.0-46.0); Hemoglobin 9.4 g/dL (12.0-16.0); Immature Granulocytes Auto 0.02 Thou/mm3 (0.00-0.00); Lymphocytes # (Auto) 1.0 Thou/mm3 (1.0-4.8); Lymphocytes % (Auto) 15 % (10-50); Mean Corpuscular HGB Conc 33.6 g/dl (31.0-37.0); Mean Corpuscular Hemoglobin 28.5 pg (25.0-35.0); Mean Corpuscular Volume 85 fL (80-100); Monocytes # (Auto) 0.3 Thou/mm3 (0.0-0.8); Monocytes % (Auto) 4 % (0-12); Neutrophils # (Auto) 5.2 Thou/mm3 (1.8-7.7); Neutrophils % (Auto) 79 % (37-80); Nucleated Red Blood Cell # 0.00 Thou/mm3 (0.00-0.00); Nucleated Red Blood Cell % 0 /100 WBC (0); Platelet Count 189 Thou/mm3 (140-440); RDW Standard Deviation 44.6 fL (36.4-46.3); Red Blood Count 3.30 Miln/mm3 (4.00-5.20); White Blood Count 6.7 Thou/mm3 (3.6-11.0)
--- NOTE | 2024-11-24 12:49 | PD.LDDS ---
DS: Providers Provider Date of admission: 11/21/24 04:45 Primary care physician: Physician No Primary/Family Admitting Provider: Gabi [facility] ([facility]) Attending Provider on Admission: Nakia Ignacio MD Consults: 11/21/24 10:53 Referral Routine Comment: Attending Provider on DC: Jennifer Miner MD Discharging Provider: Jennifer Miner MD DS: Diagnosis Discharge Diagnosis (1) delivery delivered: Status: Acute (2) Breech presentation of fetus: Status: Acute (3) Grand multiparity with current : Status: Acute (4) Cholestasis during in third trimester: Status: Acute (5) Advanced maternal age (AMA) in : Status: Acute (6) Encounter for supervision of high risk in third trimester, antepartum: Status: Acute Problem List Completed Was Problem List Reviewed/Reconciled?: Yes Summary/Hosp Course Brief History: Patient is a 39-year-old -0-3-4 at 37 1/7 weeks with an EDC of 12/11/2024 with a breech presentation and cholestasis. Patient is scheduled for primary low-transverse section. On the day of admission, she reports good movement no loss of fluids no vaginal bleeding. Bedside ultrasound was performed by myself revealing a breech presentation. Patient is consented for a primary low-transverse section. She understands the risk of the procedure including the risk of bleeding, infection, blood transfusion, damage to bowel, bladder, blood vessels nerves or other organs, prolonged hospital stay and further surgery should any complications occur. All questions were answered all consents were signed. Her is at bedside. -- Katherine is a 39yo G8 now P5035 s/p uncomplicated PLTCS at 37w1d for IHCP with breech presentation, doing well on POD 3. She has had an uncomplicated post-operative course, meeting all milestones and feels ready for discharge home. She is ambulating without lightheadedness, tolerating regular diet no n/v, spontaneously voiding without issue. She has no chest pain or shortness of breath. No fevers. [place] chills once last night, so WBC count repeated today and went from 11.4 to 6.7. Pain well controlled. Passing gas. Vitals normal, benign exam. Hemodynamically stable with no evidence of infection. Appropriate change in H/H from 11.1 to 9.8 to 9.4. No sx of anemia. Peripartum Data Delivery Method: Low Transverse Episiotomy Description: None Procedures: Procedures Operation Date: 11/21/24 07:45 Actual Procedure Side Surgeon p in OB Not Applicable Gabi Cu[facility] ([facility]), Status at Discharge Functional status at discharge: independent ambulation Overall status at discharge: patient is back to baseline Time Spent with Patient Time attestation: Total time spent providing and/or coordinating discharge services: Exam Vital Signs Temp Pulse Resp BP Pulse Ox O2 Del Method 98.7 F 67 16 121/73 98 Room Air 11/24/24 07:40 11/24/24 07:40 11/24/24 07:40 11/24/24 07:40 11/24/24 07:40 11/24/24 07:40 Narrative Exam General: well developed, well nourished, no acute distress, conversant Cardiac: normal heart rate Lungs: breathing without distress Abdomen: soft, post-gravid, non-tender, no rebound or guarding, pfannenstiel incision covered by dry/clean/intact prineo bandage. Incision well reapproximated. No erythema, drainage or induration. Fundus firm at u-2cm. Extremities: no pain with palpation of calves, trace edema of BLE Discharge Plan Plan Patient Disposition: HOME (Self Care) Patient condition on transfer: Stable Prescriptions/Referrals Prescriptions/Med Rec: New hydrocodone-acetaminophen 5-325 mg Tablet 1 tab PO Q6H MDD 4 tablets PRN (Reason: Patient rated pain 7 to 8) 7 Days Qty: 12 0RF docusate sodium 100 mg Capsule 100 mg PO BID 10 Days Qty: 20 0RF ibuprofen 800 mg tablet 800 mg PO Q8H PRN (Reason: pain) Qty: 30 0RF Continued vit-iron fum-folic ac [ Vitamin with Minerals] 28 mg iron- 800 mcg tablet 1 tab PO QDAY 30 Days Qty: 60 1RF ferrous sulfate 325 mg (65 mg iron) tablet 325 mg PO BID Qty: 60 2RF Discontinued aspirin [Adult Aspirin Regimen] 81 mg tablet,delayed release (DR/EC) 81 mg PO QDAY 30 Days Qty: 60 1RF ursodiol 200 mg capsule 200 mg PO BID Qty: 30 2RF ursodiol 200 mg capsule 200 mg PO BID Qty: 30 2RF ursodiol 200 mg capsule 200 mg PO BID Qty: 30 1RF ursodiol 250 mg tablet 250 mg PO BID Qty: 60 2RF Referrals: No Primary/Family,Physician [Primary Care Provider] Patient/Caregiver Discharge Instructions Other Discharge Activity Instructions:: vaginal rest and no heavy lifting more than 10 pounds for 6 weeks. no [address] while taking narcotic. keep incision clean and dry, do not submerge Other Discharge Diet Instructions: regular Education Materials: After Delivery Rheems Concerns, Breast Care After , After a , C Section Dc Print Language: Ukrainian Activity Restrictions/Additional Instructions: follow up with SAMI Kapoor or Dr. Cuello in 1 to 2 weeks for incision check Stand Alone Forms: Gloria Award Info., Patient Portal Info Letter Discharge Order Discharge Orders: Discharge (Routine); Ordered 11/24/24 Ordered By: Jennifer Miner Planned Discharge Date 11/24/24 (2) Breech presentation of fetus Qualifiers: Fetus number: single or unspecified fetus Qualified Code(s): O32.1XX0 - Maternal care for breech presentation, not applicable or unspecified (3) Grand multiparity with current Qualifiers: Trimester: third trimester Qualified Code(s): O09.43 - Supervision of with grand multiparity, third trimester
== END 2024-11-24 15:05 | disposition home or self-care (01) | DRG 540 ==
LOC: S4SX 06:55 → S4NX 11-22 09:05
PROVIDERS: Obstetrics & Gynecology; Admitting Provider Obstetrics & Gynecology; Visit Provider Obstetrics & Gynecology
PROC: (CPT 59514; principal; 2024-11-21 07:30)
DX: O32.1XX0 Maternal care for breech presentation, not applicable or unspecified (principal); O26.643 Intrahepatic cholestasis of pregnancy, third trimester; Z3A.37 37 weeks gestation of pregnancy; Z37.0 Single live birth
CPT/HCPCS: 36415; 85025; 86780; 86850; 86900; 86901; 86923; A4217; A4314; A4649; J0131; J0689; J1885; J2590; J3490; J7120; A9270

== ENCOUNTER 2024-11-28 13:32 | Outpatient (AMB) | payer MEDICAID, SELFPAY ==
[2024-11-28 13:34] VITALS: BP 146/87; PULSE 65; RESP 14; TEMP 36.6; O2SAT 98; BMI 26.1
--- NOTE | 2024-11-28 13:34 | AMBOBPPN_ITS ---
Vital Signs 11/28/24 13:34 Height 1.63 m Height Method Stated Weight 69.059 kg Weight Measurement Method Standing Scale BMI 26.1 BP 146/87 H Blood Pressure Source Automatic Cuff Blood Pressure Location Left Upper Arm Position Sitting Respiration 14 Pulse 65 Pulse Source Monitor Temp 97.8 F Temp Source Oral Pulse Oximetry (%) 98 Oxygen Delivery Method Room Air Allergies/Home Meds Allergies & Medications Allergies No Known Allergies Allergy (Verified 11/28/24 13:35) Medication Reconciliation ferrous sulfate 325 mg (65 mg iron) tablet 325 mg PO BID #60 tabs 09/18/24 [Rx Confirmed 11/28/24] vitamin-ferrous fumarate 28 mg iron-folic acid 800 mcg tablet ( Vitamins with Minerals) 1 tab PO QDAY 30 days #60 tabs 09/18/24 [Rx Confirmed 11/28/24] docusate sodium 100 mg capsule 100 mg PO BID 10 days #20 caps 11/23/24 [Rx Confirmed 11/28/24] hydrocodone 5 mg-acetaminophen 325 mg tablet 1 tab PO Q6H PRN Patient rated pain 7 to 8 7 days #12 tabs 11/23/24 [Rx Confirmed 11/28/24] ibuprofen 800 mg tablet 800 mg PO Q8H PRN pain #30 tabs 11/23/24 [Rx Confirmed 11/28/24] cephalexin 500 mg capsule 500 mg PO BID 7 days #14 caps 11/28/24 [Rx] phenazopyridine 100 mg tablet (Pyridium) 100 mg PO TID 5 days #15 tabs 11/28/24 [Rx] Intake Visit Data Collection New Patient or Established: Established Patient (seen at [facility] within 3 years) Reason for Visit:: Seen by Clinical Staff ONLY (RN/MA): No Brick Machine Operator Required: No Do You Feel Safe at Home: Yes Authorities Contacted: N/A PCP or OBGYN visit in last 3 months: Yes Hx Now: No Are you currently on any form of Control: No Pain Present Currently: No Pain Scale Used: Suresh-Brown/Numerical Pain scale:: 0 Smoking Status Smoking Status: Never smoker HEALTH NAVIGATOR: Past Medical History Past Medical History: No Hx Neurological Disorders, No Hx Cardiac Disorders, No Hx Cancer, No Hx Blood Disorders, No Hx Anemia, No Hx Gastrointestinal Disorders , No Hx Renal Disease, No Hx Diabetes Mellitus Type 1 and No Hx Diabetes Mellitus Type 2 Questionnaires Covid-19 Vaccine Questionnaire Has patient been vacinated for Covid-19 Have you been vacinated for Covid-19: Yes Social History Living Situation History Lives With: Family Housing: House Tobacco History Smoking Status: Never smoker Second Hand Smoke Exposure: No Alcohol History Alcohol Intake: Never Domestic Abuse History Do You Feel Safe at Home: Yes EPDS - PP Depression Screening [place] Pospartum Depression Screen I have been able to laugh and see the funny side of things: (0) As much as I always could I have looked forward with enjoyment to things: (0) As much as I ever did I have blamed myself unnecessarily when things went wrong: (0) No, never I have been anxious or worried for no good reason: (0) No, not at all I have felt scared or panicky for no very good reason: (0) No, not at all Things have been getting on top of me: (0) No, I have been coping as well as ever I have been so unhappy that I have had difficulty sleeping: (0) No, not at all I have felt sad or miserable: (0) No, not at all I have been so unhappy that I have been crying: (0) No, never The thought of harming myself has occurred to me: (0) Never Total Score: EPDS Score: Referral is indicated for score of 9 or more, suicidal, or if provider believes patient is depressed regardless of score.: 0 EPDS completed yes Care OB Visit Log OB Flowsheet Initial Weight: Not Recorded Date -?-?-?-?-?-?-?-?-?-?-?-?- EGA Weight BP Alb Glu CTX Pres Fundal ht FHR Mov Dilation Station Effac ement Hx Notes Visit Note 06/12/24 -?-?-?-?-?-?-?-?-?-?-?-?- 14w 0d 60.555 kg 124/74 absent 15 156 38-year-old multipara for first OB appointment. Patient is a transfer from [facility]. Previous history of diabetes with her last on insulin. Last period was March 06, 2024. EDC 12/09/2024. Denies bleeding or cramping at this time. Patient does have nausea. I offered Zofran to patient and patient declined. Patient's going to try sea bands and other comfort measures. Discussed diet and weight gain with patient. Increase exercise. Did a OB panel with an early 1 hour GTT and hemoglobin A1c. Also NIPT and carrier screens. I scheduled MFM appointment for anatomy scan. And will offer genetic counseling because of advanced maternal age. Urine today dip was clear there is negative protein, negative leukocytes, negative nitrites. Return in 4 weeks OB check 07/10/24 -?-?-?-?-?-?-?-?-?-?-?-?- 18w 0d 62.369 kg 113/72 absent unknown 20 135 active fetus active, no SAB complaints. patient going to vacation x 2 month , going to [facility]. patiwnt will have mfm appointment on return and do 3 hr GTT, discussed ptl precaution discuss safety and er precaution, hydrate, mfm appointment is schedule, discuss labs, discuss GDM diet and 1 hr results. patient will get 3 hr gtt on return 09/18/24 -?-?-?-?-?-?-?-?-?-?-?-?- 28w 0d 67.188 kg 111/68 absent unknown 28 135 active Patient returned from a 2-month vacation in [facility] and [facility]. Reports good movement. She did not have time to do her 3-hour yet. She will do it in [place]. Patient has a follow-up in with maternal- medicine in 4 weeks. Reports good movement. Denies labor complaints Advised to get 3-hour GTT tomorrow. Continue vitamins and iron. Continue low-dose baby aspirin. Discussed GDM diet with patient. Discus sed labor precautions. And schedule weekly NST BPP to start at 32 weeks. Return in 2 weeks OB check 10/05/24 -?-?-?-?-?-?-?-?-?-?-?-?- 30w 3d 67.642 kg 104/68 absent cephalic 30 135 active Complains of itching over her abdomen. Patient read [employer] and got scared. Sometimes complains of feeling short of breath. She is worried that her iron is low again I had already started her on iron twice a day for an H&H of 11 and 33. Reports good movement. Denies contractions. Denies leaking. Denies bleeding. Comfort measures for leg cramps. Comfort measures for itching. Patient can use Claritin daily. Discussed mild varicose veins in her left leg. Elevate them and wear support hose of is not too hot. CMP with cholestasis labs today. Continue iron twice a day. Patient to increase green veggies. Increase fluids. Discussed labor precautions and kick count. Patient has a follow-up MFM for middle of October. 10/16/24 -?-?-?-?-?-?-?-?-?-?-?-?- 32w 0d 69.173 kg 105/66 absent cephalic 32 135 active Follow-up MFM October 25. Reports good movement. Denies leaking, bleeding, contractions. Patient wants to know since her 3-hour was okay can she eat what ever she wants Follow-up MFM Se ptember 11. Discussed labor precautions. Weekly NST BPP is pending. I will send patient this week to start. Continue vitamins and iron. Increase fluids. Kick count twice a day. I discussed diet and weight with patient 10/29/24 -?-?-?-?-?-?-?-?-?-?-?-?- 33w 6d 70.364 kg 125/87 absent cephalic 33 135 active Still complains of itching. Denies labor. Reports fetus is active. Her labs for cholestasis liver enzymes AST and ALT were normal. Bile acids were 16. BUN/creatinine ratio was 18 Disc ussed cholestasis labs with Dr. Simeon. The plan is to deliver patient at 37 weeks. Start ursodiol 200 p.o. twice daily. NST BPP to be done twice weekly. Discussed labor precautions and kick count twice a day. Plan for delivery at 37 weeks. Discussed cholestasis labs w the [facility] Dr. Simeon. The plan is to deliver patient at 37 weeks. Start ursodiol 200 p.o. twice daily. NST BPP to be done twice weekly. Discussed labor precautions and kick count twice a day. Plan for delivery at 37 weeks.. 11/05/24 -?-?-?-?-?-?-?-?-?-?-?-?- 34w 6d 70.987 kg 109/65 absent cephalic 34 135 active Patient was happy to say that her ursodiol to 50 has been approved and she is taking it as directed. She reports that her itching is gone. Compliant with regular NST BPP. Fetus is active and moving. Denies leaking, bleeding, contractions schedule IOL 11/22/24 for cholestasis. GBS next visit. Discussed labor precautions and kick count. Continue that with the ursodiol and weekly NST BPP. Discussed danger signs symptoms and ER precautions 11/12/24 -?-?-?-?-?-?-?-?-?-?-?-?- 35w 6d 71.668 kg 125/79 absent cephalic 35 135 active Itching improved with estradiol. Reports good movement. Patient compliant with NST BPP twice a week. Induction scheduled for November 22, 2024. Denies leaking, bleeding, contractions Induction schedu led November 22, 2024. Discussed labor precautions and kick count twice a day. Continue with weekly NST BPP's. Discussed danger signs symptoms and ER precautions. Continue ursodiol. Return a week OB check 11/19/24 -?-?-?-?-?-?-?-?-?-?-?-?- 36w 6d 74.162 kg 120/81 occasional breech 36 1 50 Itching is improved with ursodiol. Reports good movement. Denies leaking or bleeding. Occasional contraction. Continue weekly NST BPP. Patient to continue ursodiol. Discussed danger signs and symptoms and ER precautions. Because baby's breech presentation patient was sent to the labor and delivery and will schedule C- section for breech. Kick count twice a day. And continue ursodiol AKUA Calculator Estimated Delivery Date Method Current WG Current Estimate 12/11/24 LMP (Certain) 38w 1d Other Estimates 12/11/24 Ultrasound #1 38w 1d 12/11/24 Ultrasound #2 38w 1d 12/11/24 Manual 38w 1d final AKUA: 11/15 10/08, EFW: 59% Notes Visit Date: 11/19/24 Last Updated by: Yashira Kapoor CNM 11/19: gbs- Vero stasis labs: Bilirubin: 0.2, Bile Acida: 16.5 Visit Date: 10/16/24 Last Updated by: Yashira Kapoor CNM 10/16: 3 hr gtt: wnl. 1 value high. Visit Date: 09/18/24 Last Updated by: Yashira Rudi Kapoor CNM 39 yo LMP :03/06/24. EDC: 12/11/24. 1hr gtt: 147, O+,abs-, rpr;;nr, rub imm, hbsag-, hiv-,hc-, GC/CT-, NIPT/carrier screen- HPI Interval History: 39-year-old 8 para 5 for complaints of a pulling sensation near her urethra since delivery. Patient reports that she feels the insertion of the Perez catheter was unusually painful and difficult and she feels this is the cause of it. Patient also states that she has a headache that is mild. She reports that she has been having headaches since her last childbirth. She was told by the neurologist that she had several cysts they were small and benign. Denies blurred vision denies epigastric pain denies any PIH symptoms. She is complaining of lower extremity swelling that seems to be increasing up both legs. Her blood pressure 146/87 today. There was 2+ pitting edema today and 2+ DTRs no clonus. No fever denies chills denies any signs of infection. And patient had a primary section November 21 for breech. A baby boy weighing 7 pounds 2 ounces feeling. She is breast-feeding. Patient has limited help at home and she is very busy with her other kids chasing them and running around with them. Patient's not resting as she should. She is happy. No depression. The father the baby is. History of cholestasis and GDM with this Was or delivery considered high risk: Yes Delivery type: Was labor induced: no Gestational age at delivery (weeks): 38 Delivery date: 11/19/24 Delivering provider: daija Delivery complications: Yes Delivery complications comment: urinary discomfort, bleeding Is patient infant: Yes Is patient sexually active: No Contraception planned: unsure Review of Systems Review of Systems ROS limited to current HEALTH NAVIGATOR complaints: Yes Exam Narrative Physical exam: Normal heart rate and rhythm. Lungs clear no wheezes. Abdomen is soft nontender. Uterus well involuted. Perineum is intact no lacerations. No swelling. Small lochia. Negative Homans' sign. 2+ DTRs. No edema no swelling. Breasts are soft. no vaginal swelling or redness noted. 3+ pitting edema, no clonus, suprapubic area tender General Limitations: no limitations General Appearance: alert, in no apparent distress, comfortable, cooperative, healthy appearing, well developed and well groomed Head Head exam: atraumatic, normocephalic and normal inspection ENT ENT exam: Present normal exam, normal oropharynx and mucous membranes moist Neck Neck exam: Present normal inspection, full ROM and trachea midline Chest Chest inspection: Present normal inspection and symmetric chest wall rise Resp Respiratory exam: Present normal lung sounds bilaterally Card Cardiovascular exam: Present regular rate, normal rhythm and normal heart sounds Abdominal Abdominal exam: Present soft and normal bowel sounds Psych Psychiatric exam: Present normal affect and normal mood Office Procedures OBC Clinic LOC & Office Proc's Nursing/Assessment Patient Status: Established Patient OB Clinic Nursing Assessment: Medication Reconciliation, Update PMH in EMR and Vital Signs OB Clinic Coordination of Care: Complex Care and Chronic Disease 1-5, Consent,records obtained, informed consent, Education Simp Pt/Fam, Lab and Imaging orders, Results/Orders obtained and Staff clarify orders Established Patient Charge Established Patient Point Assignment: 105 Established Patient Point Charge: EP Level 3 (80-115) Assessment & Plan Diagnosis / Problem List (1) Encounter for visit: Status: Acute (2) Dysuria: Status: Acute Plan I consulted with Dr. Pena regarding the edema and patient's symptoms. Urinary culture ordered today. I gave Pyridium 100 3 times daily for 4 days. And started on Keflex 500 twice daily x 7 days. I reviewed PIH signs and symptoms. Discussed comfort measures to decrease the swelling such as elevating her legs increase fluids avoiding salt. Patient will be scheduled tomorrow with OB to follow-up on blood pressure. Increase rest. No heavy lifting. Discussed danger signs symptoms and ER precautions Care Reviewed delivery summary and any complications: Yes Uterus involuted to: 1 below Perineal / incision healing noted: Yes Screened for depression: Yes Depression counseling provided: No Discussed family planning & contraception: Yes Contraception planned: unsure Counseling on safe resumption of sexual activity: Yes Counseling on gradual excercise: Yes Discussed and concerns (describe), provided support: Yes Referred to family support specialist: No Counseled on good nutrition, hydration, and self care: Yes Reviewed vaccine status: No Chronic & current problems reconciled on problem list: Yes Additional follow up plans: 2 hr gtt pp 6 week Infant care discussed; questions answered: feeding Follow up: routine/prn Additional counseling & anticipatory guidance provided: Continue to keep incision clean and dry. She has abdominal support for discomf ort. Tylenol ibuprofen for pain. Elevate legs. Increase rest and fluids. No salt. Discussed PIH precautions and worsening signs symptom parameters. A urine culture was sent today. And patient started on Keflex 500 p.o. twice daily x 7 and Pyridium 100 3 times daily times. Follow-up with OB tomorrow to check her blood pressure
== END 2024-11-28 13:51 | disposition home or self-care (01) ==
LOC: HODSOBC 13:32
PROVIDERS: Supervising Provider Advanced Practice Midwife; Visit Provider Advanced Practice Midwife
DX: Z39.2 Encounter for routine postpartum follow-up (principal); O90.89 Other complications of the puerperium, not elsewhere classified; R30.0 Dysuria; Z39.1 Encounter for care and examination of lactating mother
CPT/HCPCS: 99213; G0463

== ENCOUNTER 2024-11-30 13:40 | Outpatient (AMB) | payer MEDICAID, SELFPAY ==
[2024-11-30 13:55] VITALS: BP 150/84; PULSE 98; RESP 18; TEMP 36.2; O2SAT 98; BMI 25.3
--- NOTE | 2024-11-30 13:55 | AMBOBPPN_ITS ---
Vital Signs 11/30/24 13:55 Height 1.63 m Height Method Stated Weight 67.302 kg Weight Measurement Method Standing Scale BMI 25.3 BP 150/84 H Blood Pressure Source Automatic Cuff Blood Pressure Location Left Upper Arm Position Sitting Respiration 18 Pulse 98 Pulse Source Monitor Temp 97.2 F Temp Source Oral Pulse Oximetry (%) 98 Oxygen Delivery Method Room Air Allergies/Home Meds Allergies & Medications Allergies No Known Allergies Allergy (Verified 11/30/24 13:56) Medication Reconciliation ferrous sulfate 325 mg (65 mg iron) tablet 325 mg PO BID #60 tabs 09/18/24 [Rx Confirmed 11/30/24] vitamin-ferrous fumarate 28 mg iron-folic acid 800 mcg tablet ( Vitamins with Minerals) 1 tab PO QDAY 30 days #60 tabs 09/18/24 [Rx Confirmed 11/30/24] docusate sodium 100 mg capsule 100 mg PO BID 10 days #20 caps 11/23/24 [Rx Confirmed 11/30/24] ibuprofen 800 mg tablet 800 mg PO Q8H PRN pain #30 tabs 11/23/24 [Rx Confirmed 11/30/24] cephalexin 500 mg capsule 500 mg PO BID 7 days #14 caps 11/28/24 [Rx Confirmed 11/30/24] phenazopyridine 100 mg tablet (Pyridium) 100 mg PO TID 5 days #15 tabs 11/28/24 [Rx Confirmed 11/30/24] Intake Visit Data Collection New Patient or Established: Established Patient (seen at [facility] within 3 years) Reason for Visit:: [facility] Seen by Clinical Staff ONLY (RN/MA): No Revenue Manager Required: No Do You Feel Safe at Home: Yes Authorities Contacted: N/A PCP or OBGYN visit in last 3 months: Yes Date of Last PCP or OBGYN visit: 11/28/24 Hx Now: Yes Are you currently on any form of Control: No Pain Present Currently: No Pain Scale Used: Suresh-Brown/Numerical Pain scale:: 0 Smoking Status Smoking Status: Never smoker 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: Past Medical History Past Medical History: No Hx Neurological Disorders, No Hx Cardiac Disorders, No Hx Cancer, No Hx Blood Disorders, No Hx Anemia, No Hx Gastrointestinal Disorders, No Hx Renal Disease, No Hx Diabetes Mellitus Type 1 and No Hx Diabetes Mellitus Type 2 Questionnaires Covid-19 Vaccine Questionnaire Has patient been vacinated for Covid-19 Have you been vacinated for Covid-19: No Social History Living Situation History Marital Status: Lives With: Family Housing: House Tobacco History Smoking Status: Never smoker Second Hand Smoke Exposure: No Alcohol History Alcohol Intake: Never Domestic Abuse History Do You Feel Safe at Home: Yes EPDS - PP Depression Screening [place] Pospartum Depression Screen I have been able to laugh and see the funny side of things: (0) As much as I always could I have looked forward with enjoyment to things: (0) As much as I ever did I have blamed myself unnecessarily when things went wrong: (0) No, never I have been anxious or worried for no good reason: (0) No, not at all I have felt scared or panicky for no very good reason: (0) No, not at all Things have been getting on top of me: (0) No, I have been coping as well as ever I have been so unhappy that I have had difficulty sleeping: (0) No, not at all I have felt sad or miserable: (0) No, not at all I have been so unhappy that I have been crying: (0) No, never The thought of harming myself has occurred to me: (0) Never Total Score: EPDS Score: Referral is indicated for score of 9 or more, suicidal, or if provider believes patient is depressed regardless of score.: 0 EPDS completed yes Care OB Visit Log OB Flowsheet Initial Weight: Not Recorded Date -?-?-?-?-?-?-?--?-?-?-?-?- EGA Weight BP Alb Glu CTX Pres Fundal ht FHR Mov Dilation Station Effacement Hx Notes Visit Note 06/12/24 -?-?-?-?-?-?-?-?-?-?-?-?- 14w 0d 60.555 kg 124/74 absent 15 156 38-year-old multipara for first OB appointment. Patient is a transfer from [facility]. Previous history of diabetes with her last on insulin. Last period was March 06, 2024. EDC 12/09/2024. Denies bleeding or cramping at this time. Patient does have nausea. I offered Zofran to patient and patient declined. Patient's going to try sea bands and other comfort measures. Discussed diet and weight gain with patient. Increase exercise. Did a OB panel with an early 1 hour GTT and hemoglobin A1c. Also NIPT and carrier screens. I scheduled MFM appointment for anatomy scan. And will offer genetic counseling because of advanced maternal age. Urine today dip was clear there is negative protein, negative leukocytes, negative nitrites. Return in 4 weeks OB check 07/10/24 -?-?-?-?-?-?-?-?-?-?-?-?- 18w 0d 62.369 kg 113/72 absent unknown 20 135 active fetus active, no SAB complaints. patient going to vacation x 2 month , going to [facility]. patiwnt will have mfm appointment on return and do 3 hr GTT, discussed ptl precaution discuss safety and er precaution, hydrate, mfm appointment is schedule, discuss labs, discuss GDM diet and 1 hr results. patient will get 3 hr gtt on return 09/18/24 -?-?-?-?-?-?-?-?-?-?-?-?- 28w 0d 67.188 kg 111/68 absent unknown 28 135 active Patient returned from a 2-month vacation in [facility]. Reports good movement. She did not have time to do her 3-hour yet. She will do it in [place]. Patient has a follow-up in with maternal- medicine in 4 weeks. Reports good movement. Denies labor complaints Advised to get 3-hour GTT tomorrow. Continue vitamins and iron. Continue low-dose baby aspirin. Discussed GDM diet with patient. Discus sed labor precautions. And schedule weekly NST BPP to start at 32 weeks. Return in 2 weeks OB check 10/05/24 -?-?-?-?-?-?-?-?-?-?-?-?- 30w 3d 67.642 kg 104/68 absent cephalic 30 135 active Complains of itching over her abdomen. Patient read [employer] and got scared. Sometimes complains of feeling short of breath. She is worried that her iron is low again I had already started her on iron twice a day for an H&H of 11 and 33. Reports good movement. Denies contractions. Denies leaking. Denies bleeding. Comfort measures for leg cramps. Comfort measures for itching. Patient can use Claritin daily. Discussed mild varicose veins in her left leg. Elevate them and wear support hose of is not too hot. CMP with cholestasis labs today. Continue iron twice a day. Patient to increase green veggies. Increase fluids. Discussed labor precautions and kick count. Patient has a follow-up MFM for middle of October. 10/16/24 -?-?-?-?-?-?-?-?-?-?-?-?- 32w 0d 69.173 kg 105/66 absent cephalic 32 135 active Follow-up MFM October 25. Reports good movement. Denies leaking, bleeding, contractions. Patient wants to know since her 3-hour was okay can she eat what ever she wants Follow-up MFM Se ptember . Discussed labor precautions. Weekly NST BPP is pending. I will send patient this week to start. Continue vitamins and iron. Increase fluids. Kick count twice a day. I discussed diet and weight with patient 10/29/24 -?-?-?-?-?-?-?-?-?-?-?-?- 33w 6d 70.364 kg 125/87 absent cephalic 33 135 active Still complains of itching. Denies labor. Reports fetus is active. Her labs for cholestasis liver enzymes AST and ALT were normal. Bile acids were 16. B UN/creatinine ratio was 18 Discu ssed cholestasis labs with Dr. Simeon. The plan is to deliver patient at 37 weeks. Start ursodiol 200 p.o. twice daily. NST BPP to be done twice weekly. Discussed labor precautions and kick count twice a day. Plan for delivery at 37 weeks. Discussed cholestasis labs w lissette Simeon. The plan is to deliver patient at 37 weeks. Start ursodiol 200 p.o. twice daily. NST BPP to be done twice weekly. Discussed labor precautions and kick count twice a day. Plan for delivery at 37 weeks.. 11/05/24 -?-?-?-?-?-?-?-?-?-?-?-?- 34w 6d 70.987 kg 109/65 absent cephalic 34 135 active Patient was happy to say that her ursodiol to 50 has been approved and she is taking it as directed. She reports that her itching is gone. Compliant with regular NST BPP. Fetus is active and moving. Denies leaking, bleeding, contractions schedule IOL 11/22/24 for cholestasis. GBS next visit. Discussed labor precautions and kick count. Continue that with the ursodiol and weekly NST BPP. Discussed danger signs symptoms and ER precautions 11/12/24 -?-?-?-?-?-?-?-?-?-?-?-?- 35w 6d 71.668 kg 125/79 absent cephalic 35 135 active Itching improved with estradiol. Reports good movement. Patient compliant with NST BPP twice a week. Induction scheduled for November 22, 2024. Denies leaking, bleeding, contractions Induction schedu led November 22, 2024. Discussed labor precautions and kick count twice a day. Continue with weekly NST BPP's. Discussed danger signs symptoms and ER precautions. Continue ursodiol. Return a week OB check 11/19/24 -?-?-?-?-?-?-?-?-?-?-?-?- 36w 6d 74.162 kg 120/81 occasional breech 36 1 50 Itching is improved with ursodiol. Reports good movement. Denies leaking or bleeding. Occasional contraction. Continue weekly NST BPP. Patient to continue ursodiol. Discussed danger signs and symptoms and ER precautions. Because baby's breech presentation patient was sent to the labor and delivery and will schedule C- section for breech. Kick count twice a day. And continue ursodiol AKUA Calculator Estimated Delivery Date Method Current WG Current Estimate 12/11/24 LMP (Certain) 38w 3d Other Estimates 12/11/24 Ultrasound #1 38w 3d 12/11/24 Ultrasound #2 38w 3d 12/11/24 Manual 38w 3d final AKUA: 11/15 10/08, EFW: 59% Notes Visit Date: 11/19/24 Last Updated by: Yashira Kapoor CNM 11/19: gbs- Vero stasis labs: Bilirubin: 0.2, Bile Acida: 16.5 Visit Date: 10/16/24 Last Updated by: Yashira Kapoor CNM 10/16: 3 hr gtt: wnl. 1 value high. Visit Date: 09/18/24 Last Updated by: Yashira Kapoor, SAMI 39 yo LMP :03/06/24. EDC: 12/11/24. 1hr gtt: 147, O+,abs-, rpr;;nr, rub imm, hbsag-, hiv-,hc-, GC/CT-, NIPT/carrier screen- HPI Interval History: 39 years old s/p c section for breech/ also had cholestasis of / Here for incision check and follow up post op / Her C section was done 11/21/2024 her BP is elevated today Needs evaluation for it Was or delivery considered high risk: Yes Delivery type: Gestational age at delivery (weeks): 37 Delivery date: 11/21/24 Delivering provider: Xochitl Cuello Delivery complications: No Is patient : Yes Is patient sexually active: No Contraception planned: not yet Review of Systems Review of Systems Narrative Review of Systems: Reviewed all 14 point review of systems and all is negative except as noted cramping on voiding and also pedal edema no headache or blurry vision no epigastric vision Incision is C, D and intact Patient not taking her ursodiol Exam Narrative Physical exam: alert x3 chest clear CVS rrr NO THYROMEGALY Uterus is nontender Uterus is firm Bowel sounds present Abdomen soft no hernias noted/no CVAT Incision CDI No drainage Appropriately tender No calf tenderness Edema 3 plus Extremities Extremities exam: Present pedal edema Neuro Neurological exam: Present alert Exp Neuro Patient oriented to: Present person, place and time Speech: Present fluid speech Office Procedures OBC Clinic LOC & Office Proc's Nursing/Assessment Patient Status: Established Patient OB Clinic Nursing Assessment: Medication Reconciliation, Update PMH in EMR and Vital Signs OB Clinic Coordination of Care: Consent,records obtained, informed consent, Education Simp Pt/Fam, Lab and Imaging orders, Results/Orders obtained and Staff clarify orders Special Needs: Heart tones Established Patient Charge Established Patient Point Assignment: 110 Established Patient Point Charge: EP Level 3 (80-115) Assessment & Plan Care Reviewed delivery summary and any complications: Yes Contraception planned: not yet Additional follow up plans: patient to go to ED for evaluation for post preeclampsia and also d/w Dr Cuello who is manager secondary yessi Spoke to Gabrielle in ED and patient information communicated Follow up in 1 week for BP check if discharged from the ED
== END 2024-11-30 14:28 | disposition home or self-care (01) ==
LOC: HODSOBC 13:40
PROVIDERS: Supervising Provider Obstetrics & Gynecology; Visit Provider Obstetrics & Gynecology
DX: Z39.2 Encounter for routine postpartum follow-up (principal); O90.89 Other complications of the puerperium, not elsewhere classified; R03.0 Elevated blood-pressure reading, without diagnosis of hypertension
CPT/HCPCS: 99213; G0463

== ENCOUNTER 2024-11-30 15:20 | Emergency (ER) | payer MEDICAID, SELFPAY ==
[2024-11-30 15:28] VITALS: BP 133/83; PULSE 73; RESP 20; TEMP 36.9; O2SAT 99
--- NOTE | 2024-11-30 15:34 | XR_ITS ---
Examination: Pelvic ultrasound, transabdominal, complete Technique: Transabdominal ultrasound of the pelvis performed using grayscale imaging Date and time of exam: November 30, 2024, 1609 hours INDICATIONS: Pelvic cramping tenderness painful urination 1 week post November 21, 2024 FINDINGS: Uterus 14.2 cm, fluid-filled endometrium measuring 2.7 cm in thickness and extending up to 5.5 cm in length most consistent with blood in the endometrium Right ovary obscured by bowel gas Left ovary 2.5 cm arterial flow mild free fluid in the left adnexal region IMPRESSION: Fluid in the endometrium measuring up to 2.7 cm in thickness most consistent with blood products, consider continued follow-up transvaginal pelvic sonography Mild free fluid in the left adnexal region
--- NOTE | 2024-11-30 15:34 | XR_ITS ---
Examination: Venous duplex lower extremity sonogram, bilateral. Date and time of exam: November 30, 2024, 1555 hours INDICATIONS: Post November 2024 with bilateral leg swelling beginning 1 week ago Technique: Multiple sonographic images of the deep venous system have been obtained. B-mode/2-D grayscale imaging of vascular structures and Doppler spectral analysis (waveforms) and color performed Both legs are examined. Findings: Deep venous systems do not demonstrate abnormal echogenicity. All visualized deep veins exhibit compressibility. All visualized deep veins exhibit augmentation. Impression: Negative for deep vein thrombosis
--- NOTE | 2024-11-30 15:38 | EDRME_ITS ---
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
[2024-11-30 16:07] LABS: Basophils # (Auto) 0.0 Thou/mm3 (0.0-0.2); Basophils % (Auto) 1 % (0-2.5); Eosinophils # (Auto) 0.2 Thou/mm3 (0.0-0.5); Eosinophils % (Auto) 4 % (0-10); Hematocrit 38.1 % (36.0-46.0); Hemoglobin 12.2 g/dL (12.0-16.0); Immature Granulocytes Auto 0.03 Thou/mm3 (0.00-0.00); Lymphocytes # (Auto) 1.6 Thou/mm3 (1.0-4.8); Lymphocytes % (Auto) 32 % (10-50); Mean Corpuscular HGB Conc 32.0 g/dl (31.0-37.0); Mean Corpuscular Hemoglobin 27.4 pg (25.0-35.0); Mean Corpuscular Volume 86 fL (80-100); Monocytes # (Auto) 0.4 Thou/mm3 (0.0-0.8); Monocytes % (Auto) 7 % (0-12); Neutrophils # (Auto) 2.8 Thou/mm3 (1.8-7.7); Neutrophils % (Auto) 56 % (37-80); Nucleated Red Blood Cell # 0.00 Thou/mm3 (0.00-0.00); Nucleated Red Blood Cell % 0 /100 WBC (0); Platelet Count 347 Thou/mm3 (140-440); RDW Standard Deviation 41.9 fL (36.4-46.3); Red Blood Count 4.45 Miln/mm3 (4.00-5.20); White Blood Count 4.9 Thou/mm3 (3.6-11.0)
[2024-11-30 16:31] LABS: Fibrinogen 329 mg/dL (175-375); INR 1.1 (0.9-1.3); Partial Thromboplastin Time 28.7 Seconds (22.0-36.0); Prothrombin Time 11.9 Seconds (9.0-12.2)
[2024-11-30 16:36] LABS: Alanine Aminotransferase 13 U/L (10-49); Albumin, Serum 4.0 gm/dL (3.5-5.0); Albumin/Globulin Ratio 1.9 (1.2-2.2); Alkaline Phosphatase 66 U/L (46-116); Anion Gap 12 (7-16); Aspartate Amino Transferase 13 U/L (0-34); BUN/Creatinine Ratio 22 Ratio (12-20); Bilirubin,Total 0.4 mg/dL (0.3-1.2); Blood Urea Nitrogen 13 mg/dL (9-23); Calcium 9.3 mg/dL (8.3-10.6); Calcium (Corrected) 9.3 mg/dL (8.5-10.1); Carbon Dioxide 24.8 mMol/L (20.0-31.0); Chloride 106 mMol/L (98-107); Creatinine (Component) 0.6 mg/dL (0.6-1.3); Globulin 2.1 gm/dL (2.3-3.5); Glucose 123 mg/dL (74-106); Magnesium 1.9 mg/dL (1.6-2.6); Osmolality,Calculated 286 (275-295); Potassium 3.9 mMol/L (3.4-5.1); Sodium 143 mMol/L (136-145); Total Protein 6.1 gm/dL (5.7-8.2); Uric Acid 5.0 mg/dL (3.1-7.8); eGFR > 60 See Note
[2024-11-30 17:50] LABS: Collection Type, Urine Clean Catch; Squamous Epithelial Cell,Urine 0 /hpf (0-5)
[2024-11-30 17:55] LABS: Bilirubin,Urine Negative (Negative); Blood,Urine 2+ (Negative); Clarity,Urine Clear (Clear/Hazy); Color,Urine Lt-Yellow (Lt Yel-Yel); Culture Indicated,Urine Not Indicated; Glucose, Urine Negative (Negative); Hyaline Casts,Urine < 1 /hpf (0-1); Ketones,Urine Negative (Negative); Leukocyte Esterase,Urine Negative (Negative); Nitrite,Urine Negative (Negative); PH,Urine 6.5 (5.0-7.0); Protein,Urine Negative (Neg - Trace); RBC,Urine 12 /hpf (0-3); Specific Gravity,Urine 1.015 (1.001-1.035); Urobilinogen,Urine Negative mg/dL (0.0-1.0); WBC,Urine 1 /hpf (0-5)
[2024-11-30 18:11] VITALS: BP 140/80; PULSE 55; RESP 18; TEMP 37.1; O2SAT 99
--- NOTE | 2024-11-30 18:26 | PD.EDADULT ---
ED General RME/HPI General Chief complaint: General Adult/Misc Complain Stated complaint: sent by Dr. Ignacio for HTN, done 11/21/24 Time Seen by Provider: 11/30/24 17:55 Arrival date/time: 11/30/24 15:20 CC: Hypertension and leg edema HPI ongoing hide patient is 9 days post she is a G7, P5 not in any acute distress breast-feeding states she is taking all no medications secondary to feeding her child. Patient is complaining of intermittent shortness of breath both exertional dyspnea and when resting. Patient is awake alert oriented nontoxic-appearing not in any acute distress with the present blood pressure 140/80. 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 and was referred to the ER for hypertension and lower extremity swelling Related Data Previous Rx's ?Medication ?Instructions ?Recorded ferrous sulfate 325 mg (65 mg 325 mg PO BID #60 tabs 09/18/24 iron) tablet vitamin-ferrous fumarate 1 tab PO QDAY 30 days #60 tabs 09/18/24 28 mg iron-folic acid 800 mcg tablet ( Vitamins with Minerals) docusate sodium 100 mg capsule 100 mg PO BID 10 days #20 caps 11/23/24 ibuprofen 800 mg tablet 800 mg PO Q8H PRN pain #30 tabs 11/23/24 cephalexin 500 mg capsule 500 mg PO BID 7 days #14 caps 11/28/24 phenazopyridine 100 mg tablet 100 mg PO TID 5 days #15 tabs 11/28/24 (Pyridium) furosemide 20 mg tablet (Lasix) 20 mg PO BID #10 tabs 11/30/24 labetalol 100 mg tablet 100 mg PO BID #30 tabs 11/30/24 Allergies Allergy/AdvReac Type Severity Reaction Status Date / Time No Known Allergies Allergy Verified 11/30/24 15:27 Review of Systems Review of Systems Narrative Review of Systems: GEN: No fever, no chills, no weight loss EYES: No discharge, no visual changes, no pain HEENT: No ear pain, no congestion, no sore throat PULM: No shortness of breath, no cough, no congestion CV: No chest pain, no dyspnea on exertion, no palpitations GI: No nausea, no vomiting, no diarrhea, no pain, no constipation : No frequency, no urgency, no dysuria MUSC/SKEL: No joint pain, no back pain SKIN: No rash PSYCH: No hallucinations, no depression HEME/LYMPH: No easy bleeding or bruising tendencies NEURO: No weakness, no headache Past Medical History Past Medical History NEUROLOGIC: Negative Neurological Disorders or Seizures CARDIAC: Negative Cardiac Disorders or Congestive Heart Failure RESPIRATORY: Negative Chronic Obstructive Pulmonary Disease (COPD) GASTROINTESTINAL: Negative Gastrointestinal Disorders GENITOURINARY: Negative Genitourinary Disorders or Renal Disease REPRODUCTIVE: Positive Previous Pregnancies; Negative Endometriosis or Pelvic Inflammatory Disease MUSCULOSKELETAL: Negative Musculoskeletal Disorders ENDOCRINE: Positive Endocrine Disorders; Negative Diabetes Mellitus Type 1 or Diabetes Mellitus Type 2 HEMATOLOGIC: Negative Blood Disorders or Anemia OTHER HISTORY: Positive Chicken Pox and Measles; Negative Hospitalization, Autoimmune Disease, Shingles, Falls, Blood Transfusions, Blood Transfusion Reaction, Anesthesia Reactions, Chemotherapy, Human Immunodeficiency Virus (HIV), Mumps, Rubella (Tajik Measles), Pertussis, Clostridium Difficile or Cancer Family History FAMILY HISTORY: Positive Family Cancer (MOTHER); Negative Family Psychiatric Problems, Family Respiratory Disorders, Family Cardiac Disorders, Family Gastrointestinal Problems, Family Surgery or Family Anesthesia Reaction Surgical History SURGICAL: Positive Section (11/21/24) Social History SMOKING STATUS: Never smoker SECOND HAND EXPOSURE: No SUBSTANCE USE: does not use ED Exam Narrative Physical exam: [General: Not in any acute distress Head normocephalic HEENT: Eyes pupils PERRLA EOMs are intact mouth pink moist membranes uvula is midline swallow symmetrical phonation is normal. Within acceptable limits Neck is supple nontender Chest equal chest rise nontender to palpation Respiratory: Clear to auscultation no wheezes crackles or rubs CV: Rate rhythm is regular no murmurs rubs or clicks Abdomen is distended secondary to body habitus soft nontender no masses positive bowel sounds all 4 quadrants Back: No CVA tenderness no spinous process tenderness from cervical spine thoracic and lumbar spine Skin: Intact no petechiae rash induration ulceration or crepitus Extremities: Moving all extremity against resistance cap refill less than 2 seconds neurosensory intact +1 pitting edema from the dorsum of the foot to mid calf. Neuro: Awake alert oriented x3 Glascow coma 15 no focal deficits] Course Course Course Narrative: Patient's case clinical presentation laboratory results and findings were discussed with Dr Cuello, TRACKMOBILE OPERATOR who is gurpreet come down to the ER and see the patient. Quality Measures none Orders Category Date Time Status US pelvic complete Stat Exams 11/30/24 15:34 Completed US venous doppler LE BI Stat Exams 11/30/24 15:34 Completed CBC Stat Lab 11/30/24 15:42 Completed CMP [Comprehensive Metabolic Panel] Stat Lab 11/30/24 15:42 Completed Fibrinogen Stat Lab 11/30/24 15:42 Completed Mag [Magnesium] Stat Lab 11/30/24 15:42 Completed PT [Prothrombin Time with INR] Stat Lab 11/30/24 15:42 Completed PTT [Partial Thromboplastin Time] Stat Lab 11/30/24 15:42 Completed UA, C/S IF [Urinalysis, C/S if Indicated] Stat Lab 11/30/24 17:44 Completed Uric Acid Stat Lab 11/30/24 15:42 Completed Furosemide [Lasix] Med 11/30/24 19:11 Discontinued 20 mg PO X1 ONE Labetalol Tab [Trandate Tab] Med 11/30/24 19:11 Discontinued 100 mg PO X1 ONE Vital Signs Vital signs: Vital Signs Temperature 98.4 F 11/30/24 15:28 Pulse Rate 73 11/30/24 15:28 Respiratory Rate 20 11/30/24 15:28 Blood Pressure 133/83 H 11/30/24 15:28 Pulse Oximetry (%) 99 11/30/24 15:28 Oxygen Delivery Method Room Air 11/30/24 15:28 Discharge Plan Plan Patient Disposition: HOME (Self Care) Patient condition on transfer: Stable Prescriptions/Referrals Prescriptions/Med Rec: No Action phenazopyridine [Pyridium] 100 mg tablet 100 mg PO TID 5 Days Qty: 15 0RF cephalexin 500 mg capsule 500 mg PO BID 7 Days Qty: 14 0RF vit-iron fum-folic ac [ Vitamin with Minerals] 28 mg iron- 800 mcg tablet 1 tab PO QDAY 30 Days Qty: 60 1RF ferrous sulfate 325 mg (65 mg iron) tablet 325 mg PO BID Qty: 60 2RF furosemide [Lasix] 20 mg tablet 20 mg PO BID Qty: 10 0RF labetalol 100 mg tablet 100 mg PO BID Qty: 30 4RF docusate sodium 100 mg Capsule 100 mg PO BID 10 Days Qty: 20 0RF ibuprofen 800 mg tablet 800 mg PO Q8H PRN (Reason: pain) Qty: 30 0RF Referrals: [facility] (OB Clinic),Gabi Peter MD [Physician, TRACKMOBILE OPERATOR] - In 1 week No Primary/Family,Physician [Primary Care Provider] - In 1 week Problem List Clinical Impression: Bilateral edema of lower extremity Patient/Caregiver Discharge Instructions Education Materials: ED Leg Swelling in Both Legs Print Language: Irish Stand Alone Forms: Gloria Award Info., Work/School Release, Patient Portal Info Letter PA/PERSONAL FINANCIAL COUNSELOR Supervising Physician PA/PERSONAL FINANCIAL COUNSELOR Supervising Physician: Sacha Andrade ENP [facility] Clinical Information Provided by: patient Medical Records reviewed [facility] Meds/Rx considered, not ordered None Labs/Rad/Tests considered, not ordered None Medication Administration(s) Medication Administration History Discontinued Medications Furosemide (Furosemide 20 Mg Tablet) 20 mg PO X1 ONE Stop: 11/30/24 19:12 Last Admin: 11/30/24 19:32 Dose: 20 mg Documented By: KOKO Labetalol HCl (Labetalol 100 Mg Tablet) 100 mg PO X1 ONE Stop: 11/30/24 19:12 Last Admin: 11/30/24 19:23 Dose: 100 mg Documented By: KOKO
--- NOTE | 2024-11-30 19:18 | PD.GYNCONS ---
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 The baby is 9 days old. Patient went home without complications on postop day 3. She presented to the office today and her blood pressure was elevated 140s to 150s over 90s and was sent into the ER to get evaluated with [facility] labs by Dr. Ignacio. Patient does report headaches no change in vision or right upper quadrant pain no heavy vaginal bleeding. She states she always gets headaches patient delivered vaginally 4 times prior. She is breast-feeding and is very worried about taking any pain medications at all with breast-feeding. She is not taking any pain meds at all including ibuprofen or Tylenol. She is not taking Cochrane. She reports that when she voids she has to sit a few minutes and then she feels pain and then her urine stream starts. She admits that she does not void often because she is taking care of the baby. She wonders if this is because they put a Perez catheter in during her spinal. She states the student tried to put it in a couple times. She denies any burning with urination or blood in her urine. She did have a urinalysis 11/24 and 11/30 and both were negative. In the ER right now blood pressures are 140 over 80s and her preeclamptic labs are normal. She has no protein in her urine. Her feet have 2-3+ pitting edema to her mid calf. Abdomen is soft nontender incisions healing nicely. We had a discussion about preeclampsia. I told the patient she is at risk for it due to her age. I did recommend Lasix for 3 days and labetalol. After discussion, and answering all questions through shared decision making between myself the patient and her we decided to beneficial to try labetalol 100 twice a day and Lasix twice a day for 3 days. I also will prescribe Pyridium for her bladder. I warned her this could turn her urine orange. We did discuss severe signs of preeclampsia. Patient will follow-up closely in the office next week for blood pressure check. I did encourage her to take pain medications and told her it is very early to be off all pain medications especially ibuprofen and Tylenol I did reiterate these are safe with breast-feeding patient seems reassured. cc:: cc: Review of Systems Review of Systems Narrative Review of Systems: Patient reports headaches. No changes in vision. She states she always gets headaches and these are typical for her. She reports bladder pain as above. She reports some right sided incisional pain. No right upper quadrant pain no fevers chills no nausea vomiting no heavy bleeding no depression. Meds Home Medications and Allergies Allergies Allergy/AdvReac Type Severity Reaction Status Date / Time No Known Allergies Allergy Verified 11/30/24 15:27 Exam - MICROGRAPHICS SERVICES SUPERVISOR Vital Signs Temp Pulse Resp BP Pulse Ox O2 Del Method 98.7 F 55 L 18 140/80 H 99 Room Air 11/30/24 18:11 11/30/24 18:11 11/30/24 18:11 11/30/24 18:11 11/30/24 18:11 11/30/24 18:11 Constitutional Constitutional: mild distress Comments: Patient is uncomfortable as she states that she needs to pump and her breasts are quite full. Routine Abdominal Exam Abdominal: Present soft and wound (Incision clean dry and intact) Comments: Fundus firm approximately 12 weeks size nontender. Routine Extremities Exam Extremities: Present edema (2-3+ edema of both feet to mid calf. No erythema. No tenderness) MICROGRAPHICS SERVICES SUPERVISOR - Results Labs 11/30/24 15:42 11/30/24 15:42 Labs: Short CBC 11/30/24 Range/Units 15:42 WBC 4.9 (3.6-11.0) Thou/mm3 Hgb 12.2 D (12.0-16.0) g/dL Hct 38.1 (36.0-46.0) % Plt Count 347 D (140-440) Thou/mm3 BMP 11/30/24 15:42 Sodium 143 Potassium 3.9 Chloride 106 Carbon Dioxide 24.8 BUN 13 Creatinine 0.6 Glucose 123 H Calcium 9.3 Liver Function 11/30/24 Range/Units 15:42 Total Bilirubin 0.4 (0.3-1.2) mg/dL AST 13 (0-34) U/L ALT 13 (10-49) U/L Alkaline Phosphatase 66 (46-116) U/L Albumin 4.0 (3.5-5.0) gm/dL Urine 11/30/24 Range/Units 17:44 Urine Color Lt-Yellow (Lt Yel-Yel) Urine Clarity Clear (Clear/Hazy) Urine pH 6.5 (5.0-7.0) Ur Specific [place] 1.015 (1.001-1.035) Urine Protein Negative (Neg - Trace) Urine Glucose (UA) Negative (Negative) Assessment and Plan Assessment and plan (1) Bilateral edema of lower extremity: Status: Acute Assessment and plan: Lasix 20 twice daily for 3 days (2) delivery delivered: Status: Acute Assessment and plan: Encouraged patient to take ibuprofen Tylenol and if needed half a Cochrane for pain. Discussed safety of pain medications and the fact the patient only left the hospital about 5 days ago and is not on any pain medication. (3) induced hypertension, : Status: Acute Assessment and plan: Labetalol 100 twice daily ordered. Lasix 20 twice daily x 3 days ordered. Follow-up next week in the clinic for blood pressure check.
[2024-11-30 19:23] VITALS: BP 162/86; PULSE 54
[2024-11-30] MEDS: LABETALOL 100 MG TABLET PO (19:23)
[2024-11-30 19:32] VITALS: BP 162/86; PULSE 51
[2024-11-30 19:34] VITALS: BP 162/86; PULSE 52; RESP 16; TEMP 36.7; O2SAT 99
== END 2024-11-30 19:35 | disposition home or self-care (01) ==
PROVIDERS: Nurse Practitioner Primary Care; Emergency Provider Emergency Medicine
DX: O13.5 Gestational [pregnancy-induced] hypertension without significant proteinuria, complicating the puerperium (principal)
CPT/HCPCS: 36415; 76856; 80053; 81001; 83735; 84550; 85025; 85384; 85610; 85730; 93970; 99283; A9270

== ENCOUNTER 2024-12-05 11:07 | Outpatient (AMB) | payer MEDICAID, SELFPAY ==
--- NOTE | 2024-12-05 11:13 | AMBOBPPN_ITS ---
Vital Signs 12/05/24 11:14 Height 1.63 m Height Method Stated Weight 64.977 kg Weight Measurement Method Standing Scale BMI 24.4 BP 113/72 Blood Pressure Source Automatic Cuff Blood Pressure Location Left Upper Arm Position Sitting Respiration 18 Pulse 77 Pulse Source Monitor Temp 97.2 F Temp Source Oral Pulse Oximetry (%) 98 Oxygen Delivery Method Room Air Allergies/Home Meds Allergies & Medications Allergies No Known Allergies Allergy (Verified 12/05/24 11:16) Medication Reconciliation ferrous sulfate 325 mg (65 mg iron) tablet 325 mg PO BID #60 tabs 09/18/24 [Rx Confirmed 12/05/24] vitamin-ferrous fumarate 28 mg iron-folic acid 800 mcg tablet ( Vitamins with Minerals) 1 tab PO QDAY 30 days #60 tabs 09/18/24 [Rx Confirmed 12/05/24] ibuprofen 800 mg tablet 800 mg PO Q8H PRN pain #30 tabs 11/23/24 [Rx Confirmed 12/05/24] furosemide 20 mg tablet (Lasix) 20 mg PO BID #10 tabs 11/30/24 [Rx Confirmed 12/05/24] labetalol 100 mg tablet 100 mg PO BID #30 tabs 11/30/24 [Rx Confirmed 12/05/24] Intake Visit Data Collection New Patient or Established: Established Patient (seen at [facility] within 3 years) Reason for Visit:: [facility] Seen by Clinical Staff ONLY (RN/MA): No Check Grader Required: No Do You Feel Safe at Home: Yes Authorities Contacted: N/A PCP or OBGYN visit in last 3 months: Yes Date of Last PCP or OBGYN visit: 11/30/24 Hx Now: No Are you currently on any form of Control: No Pain Present Currently: No Pain Scale Used: Suresh-Brown/Numerical Pain scale:: 0 Smoking Status Smoking Status: Never smoker Immunizations Flu Vaccine in the Last 12 Months: No Flu Vaccine Exclusion Criteria: No 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: Past Medical History Past Medical History: No Hx Neurological Disorders, No Hx Cardiac Disorders, No Hx Cancer, No Hx Blood Disorders, No Hx Anemia, No Hx Gastrointestinal Disorders, No Hx Renal Disease, No Hx Diabetes Mellitus Type 1 and No Hx Diabetes Mellitus Type 2 Questionnaires Covid-19 Vaccine Questionnaire Has patient been vacinated for Covid-19 Have you been vacinated for Covid-19: Yes Social History Living Situation History Marital Status: Single Lives With: Family Housing: House Tobacco History Smoking Status: Never smoker Second Hand Smoke Exposure: No Alcohol History Alcohol Intake: Never Domestic Abuse History Do You Feel Safe at Home: Yes EPDS - PP Depression Screening [place] Pospartum Depression Screen I have been able to laugh and see the funny side of things: (0) As much as I always could I have looked forward with enjoyment to things: (0) As much as I ever did I have blamed myself unnecessarily when things went wrong: (0) No, never I have been anxious or worried for no good reason: (0) No, not at all I have felt scared or panicky for no very good reason: (0) No, not at all Things have been getting on top of me: (0) No, I have been coping as well as ever I have been so unhappy that I have had difficulty sleeping: (0) No, not at all I have felt sad or miserable: (0) No, not at all I have been so unhappy that I have been crying: (0) No, never The thought of harming myself has occurred to me: (0) Never Total Score: EPDS Score: Referral is indicated for score of 9 or more, suicidal, or if provider believes patient is depressed regardless of score.: 0 EPDS completed yes Care OB Visit Log OB Flowsheet Initial Weight: Not Recorded Date -?-?-?-?-?-?-?-?-?-?-?-?- EGA Weight BP Alb Glu CTX Pres Fundal ht FHR Mov Dilation Station Effacement Hx Notes Visit Note 06/12/24 -?-?-?-?-?-?-?-?-?-?-?-?- 14w 0d 60.555 kg 124/74 absent 15 156 38-year-old multipara for first OB appointment. Patient is a transfer from [facility]. Previous history of ashlee betes with her last on insulin. Last period was March 06, 2024. EDC 12/09/2024. Denies bleeding or cramping at this time. Patient does have nausea. I offered Zofran to patient and patient declined. Patient's going to try sea bands and other comfort measures. Discussed diet and weight gain with patient. Increase exercise. Did a OB panel with an early 1 hour GTT and hemoglobin A1c. Also NIPT and carrier screens. I scheduled MFM appointment for anatomy scan. And will offer genetic counseling because of advanced maternal age. Urine today dip was clear there is negative protein, negative leukocytes, negative nitrites. Return in 4 weeks OB check 07/10/24 -?-?-?-?-?-?-?-?-?-?-?-?- 18w 0d 62.369 kg 113/72 absent unknown 20 135 active fetus active, no SAB complaints. patient going to vacation x 2 month , going to [facility]. patiwnt will have mfm appointment on return and do 3 hr GTT, discussed ptl precaution discuss safety and er precaution, hydrate, mfm appointment is schedule, discuss labs, discuss GDM diet and 1 hr results. patient will get 3 hr gtt on return 09/18/24 -?-?-?-?-?-?-?-?-?-?-?-?- 28w 0d 67.188 kg 111/68 absent unknown 28 135 active Patient returned from a 2-month vacation in [facility]. Reports good movement. She did not have time to do her 3-hour yet. She will do it in [place]. Patient has a follow-up in with maternal- medicine in 4 weeks. Reports good movement. Denies labor complaints Advised to get 3-hour GTT tomorrow. Continue vitamins and iron. Continue low-dose baby aspirin. Discussed GDM diet with patient. Discus sed labor precautions. And schedule weekly NST BPP to start at 32 weeks. Return in 2 weeks OB check 10/05/24 -?-?-?-?-?-?-?-?-?-?-?-?- 30w 3d 67.642 kg 104/68 absent cephalic 30 135 active Complains of itching over her abdomen. Patient read [employer] and got scared. Sometimes complains of feeling short of breath. She is worried that her iron is low again I had already started her on iron twice a day for an H&H of 11 and 33. Reports good movement. Denies contractions. Denies leaking. Denies bleeding. Comfort measures for leg cramps. Comfort measures for itching. Patient can use Claritin daily. Discussed mild varicose veins in her left leg. Elevate them and wear support hose of is not too hot. CMP with cholestasis labs today. Continue iron twice a day. Patient to increase green veggies. Increase fluids. Discussed labor precautions and kick count. Patient has a follow-up MFM for middle of October. 10/16/24 -?-?-?-?-?-?-?-?-?-?-?-?- 32w 0d 69.173 kg 105/66 absent cephalic 32 135 active Follow-up MFM October 25. Reports good movement. Denies leaking, bleeding, contractions. Patient wants to know since her 3-hour was okay can she eat what ever she wants Follow-up MFM Se pt. Discussed labor precautions. Weekly NST BPP is pending. I will send patient this week to start. Continue vitamins and iron. Increase fluids. Kick count twice a day. I discussed diet and weight with patient 10/29/24 -?-?-?-?-?-?-?-?-?-?-?-?- 33w 6d 70.364 kg 125/87 absent cephalic 33 135 active Still complains of itching. Denies labor. Reports fetus is active. Her labs for cholestasis liver enzymes AST and ALT were normal. Bile acids were 16. BUN/creatinine ratio was 18 Disc ussed cholestasis labs with Dr. Simeon. The plan is to deliver patient at 37 weeks. Start ursodiol 200 p.o. twice daily. NST BPP to be done twice weekly. Discussed labor precautions and kick count twice a day. Plan for delivery at 37 weeks. Discussed cholestasis labs w lissette Simeon. The plan is to deliver patient at 37 weeks. Start ursodiol 200 p.o. twice daily. NST BPP to be done twice weekly. Discussed labor precautions and kick count twice a day. Plan for delivery at 37 weeks.. 11/05/24 -?-?-?-?-?-?-?-?-?-?-?-?- 34w 6d 70.987 kg 109/65 absent cephalic 34 135 active Patient was happy to say that her ursodiol to 50 has been approved and she is taking it as directed. She reports that her itching is gone. Compliant with regular NST BPP. Fetus is active and moving. Denies leaking, bleeding, contractions schedule IOL 11/22/24 for cholestasis. GBS next visit. Discussed labor precautions and kick count. Continue that with the ursodiol and weekly NST BPP. Discussed danger signs symptoms and ER precautions 11/12/24 -?-?-?-?-?-?-?-?-?-?-?-?- 35w 6d 71.668 kg 125/79 absent cephalic 35 135 active Itching improved with estradiol. Reports good movement. Patient compliant with NST BPP twice a week. Induction scheduled for November 22, 2024. Denies leaking, bleeding, contractions Induction schedu led November 22, 2024. Discussed labor precautions and kick count twice a day. Continue with weekly NST BPP's. Discussed danger signs symptoms and ER precautions. Continue ursodiol. Return a week OB check 11/19/24 -?--?-?-?-?-?-?-?-?-?-?-?- 36w 6d 74.162 kg 120/81 occasional breech 36 1 50 Itching is improved with ursodiol. Reports good movement. Denies leaking or bleeding. Occasional contraction. Continue weekly NST BPP. Patient to continue ursodiol. Discussed danger signs and symptoms and ER precautions. Because baby's breech presentation patient was sent to the labor and delivery and will schedule C- section for breech. Kick count twice a day. And continue ursodiol AKUA Calculator Estimated Delivery Date Method Current WG Current Estimate 12/11/24 LMP (Certain) 39w 1d Other Estimates 12/11/24 Ultrasound #1 39w 1d 12/11/24 Ultrasound #2 39w 1d 12/11/24 Manual 39w 1d final AKUA: 11/15 10/08, EFW: 59% Notes Visit Date: 11/19/24 Last Updated by: Yashira Kapoor CNM 11/19: gbs- Vero stasis labs: Bilirubin: 0.2, Bile Acida: 16.5 Visit Date: 10/16/24 Last Updated by: Yashira Kapoor CNM 10/16: 3 hr gtt: wnl. 1 value high. Visit Date: 09/18/24 Last Updated by: Yashira Kapoor, SAMI 39 yo LMP :03/06/24. EDC: 12/11/24. 1hr gtt: 147, O+,abs-, rpr;;nr, rub imm, hbsag-, hiv-,hc-, GC/CT-, NIPT/carrier screen- HPI Interval History: 39 years old s/p c section for breech/ also had cholestasis of / Here for incision check and follow up post op / Her C section was done 11/21/2024 her BP was elevated last visited and she was in ED and was sent home as her evaluation for preeclampsia was negative . Today here for BP Check Delivery type: Contraception planned: undecided Review of Systems Review of Systems Narrative Review of Systems: Reviewed all 14 point review of systems and all is negative except as noted Exam Narrative Physical exam: alert x3 chest clear CVS RRR NO thromegaly Uterus is nontender Uterus is firm Just below the umbilicus Bowel sounds present Abdomen soft no hernias noted/no CVAT Incision CDI No drainage/ removed dressing / healing well Patient states no sensation Appropriately tender No calf tenderness Edema minimal Results Objective Laboratory: reviewed from ED done 11/30/2024 Office Procedures [facility] Clinic LOC & Office Proc's Nursing/Assessment Patient Status: Established Patient OB Clinic Nursing Assessment: Medication Reconciliation, Update PMH in EMR and Vital Signs OB Clinic Coordination of Care: Consent,records obtained, informed consent, Education Simp Pt/Fam, Lab and Imaging orders, Results/Orders obtained and Staff clarify orders Established Patient Charge Established Patient Point Assignment: 80 Established Patient Point Charge: EP Level 3 (80-115) Assessment & Plan Care Reviewed delivery summary and any complications: Yes Uterus involuted to: appropriately Discussed family planning & contraception: No Contraception planned: undecided Counseled on good nutrition, hydration, and self care: Yes Additional follow up plans: advised to get a BP monitor and check BP at home Bring BP monitor to clinic and learn how to take BP continue Labetalol 100 po BID / skip dose if BP is 120/80 or lower follow up in 4 weeks
[2024-12-05 11:14] VITALS: BP 113/72; PULSE 77; RESP 18; TEMP 36.2; O2SAT 98; BMI 24.4
== END 2024-12-05 11:39 | disposition home or self-care (01) ==
LOC: HODSOBC 11:07
PROVIDERS: Supervising Provider Obstetrics & Gynecology; Visit Provider Obstetrics & Gynecology
DX: Z39.2 Encounter for routine postpartum follow-up (principal)
CPT/HCPCS: 99213; G0463

== ENCOUNTER 2025-01-02 13:14 | Outpatient (AMB) | payer MEDICAID, SELFPAY ==
[2025-01-02 13:43] VITALS: BP 114/72; PULSE 85; RESP 18; TEMP 36.2; O2SAT 98; BMI 22.8
--- NOTE | 2025-01-02 13:43 | AMBOBPPN_ITS ---
Vital Signs 01/02/25 13:43 Height 1.66 m Height Method Stated Weight 63.049 kg Weight Measurement Method Standing Scale BMI 22.8 BP 114/72 Blood Pressure Source Automatic Cuff Blood Pressure Location Left Upper Arm Position Sitting Respiration 18 Pulse 85 Pulse Source Monitor Temp 97.2 F Temp Source Oral Pulse Oximetry (%) 98 Oxygen Delivery Method Room Air Allergies/Home Meds Allergies & Medications Allergies No Known Allergies Allergy (Verified 01/02/25 13:44) Medication Reconciliation ferrous sulfate 325 mg (65 mg iron) tablet 325 mg PO BID #60 tabs 09/18/24 [Rx Confirmed 01/02/25] vitamin-ferrous fumarate 28 mg iron-folic acid 800 mcg tablet ( Vitamins with Minerals) 1 tab PO QDAY 30 days #60 tabs 09/18/24 [Rx Confirmed 01/02/25] ibuprofen 800 mg tablet 800 mg PO Q8H PRN pain #30 tabs 11/23/24 [Rx Confirmed 01/02/25] furosemide 20 mg tablet (Lasix) 20 mg PO BID #10 tabs 11/30/24 [Rx Confirmed 01/02/25] labetalol 100 mg tablet 100 mg PO BID #30 tabs 11/30/24 [Rx Confirmed 01/02/25] norethindrone (contraceptive) 0.35 mg tablet (Nelly-BE) 0.35 mg PO QDAY #84 tabs 01/04/25 [Rx] Intake Visit Data Collection New Patient or Established: Established Patient (seen at [facility] within 3 years) Reason for Visit:: C Seen by Clinical Staff ONLY (RN/MA): No Shop Technician Required: No Do You Feel Safe at Home: Yes Authorities Contacted: N/A PCP or OBGYN visit in last 3 months: Yes Date of Last PCP or OBGYN visit: 12/05/24 Hx Now: No Are you currently on any form of Control: No Pain Present Currently: No Pain Scale Used: Suresh-Brown/Numerical Pain scale:: 0 Smoking Status Smoking Status: Never smoker Immunizations Flu Vaccine in the Last 12 Months: No Flu Vaccine Exclusion Criteria: 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 Medical History Past Medical History: No Hx Neurological Disorders, No Hx Cardiac Disorders, No Hx Cancer, No Hx Blood Disorders, No Hx Anemia, No Hx Gastrointestinal Disorders, No Hx Renal Disease, No Hx Diabetes Mellitus Type 1 and No Hx Diabetes Mellitus Type 2 Questionnaires Covid-19 Vaccine Questionnaire Has patient been vacinated for Covid-19 Have you been vacinated for Covid-19: No Social History Living Situation History Marital Status: Single Lives With: Family Housing: House Tobacco History Smoking Status: Never smoker Second Hand Smoke Exposure: No Alcohol History Alcohol Intake: Never Domestic Abuse History Do You Feel Safe at Home: Yes EPDS - PP Depression Screening [place] Pos[facility] Depression Screen I have been able to laugh and see the funny side of things: (0) As much as I always could I have looked forward with enjoyment to things: (0) As much as I ever did I have blamed myself unnecessarily when things went wrong: (0) No, never I have been anxious or worried for no good reason: (0) No, not at all I have felt scared or panicky for no very good reason: (0) No, not at all Things have been getting on top of me: (0) No, I have been coping as well as ever I have been so unhappy that I have had difficulty sleeping: (0) No, not at all I have felt sad or miserable: (0) No, not at all I have been so unhappy that I have been crying: (0) No, never The thought of harming myself has occurred to me: (0) Never Total Score: EPDS Score: Referral is indicated for score of 9 or more, suicidal, or if provider believes patient is depressed regardless of score.: 0 EPDS completed yes Care OB Visit Log OB Flowsheet Initial Weight: Not Recorded Date -?-?-?-?-?-?-?-?-?-?-?-?- EGA Weight BP Alb Glu CTX Pres Fundal ht FHR Mov Dilation Station Effacement Hx Notes Visit Note 06/12/24 -?-?-?-?-?-?-?-?-?-?-?-?- 14w 0d 60.555 kg 124/74 absent 15 156 38-year-old multipara for first OB appointment. Patient is a transfer from [facility]. Previous history of diabetes with her last on insulin. Last period was March 06, 2024. EDC 12/09/2024. Denies bleeding or cramping at this time. Patient does have nausea. I offered Zofran to patient and patient declined. Patient's going to try sea bands and other comfort measures. Discussed diet and weight gain with patient. Increase exercise. Did a OB panel with an early 1 hour GTT and hemoglobin A1c. Also NIPT and carrier screens. I scheduled MFM appointment for anatomy scan. And will offer genetic counseling because of advanced maternal age. Urine today dip was clear there is negative protein, negative leukocytes, negative nitrites. Return in 4 weeks OB check 07/10/24 -?-?-?-?-?-?-?--?-?-?-?-?- 18w 0d 62.369 kg 113/72 absent unknown 20 135 active fetus active, no SAB complaints. patient going to vacation x 2 month , going to [facility]. patiwnt will have mfm appointment on return and do 3 hr GTT, discussed ptl precaution discuss safety and er precaution, hydrate, mfm appointment is schedule, discuss labs, discuss GDM diet and 1 hr results. patient will get 3 hr gtt on return 09/18/24 -?-?-?-?-?-?-?-?-?-?-?-?- 28w 0d 67.188 kg 111/68 absent unknown 28 135 active Patient returned from a 2-month vacation in [facility]. Reports good movement. She did not have time to do her 3-hour yet. She will do it in [place]. Patient has a follow-up in with maternal- medicine in 4 weeks. Reports good movement. Denies labor complaints Advised to get 3-hour GTT tomorrow. Continue vitamins and iron. Continue low-dose baby aspirin. Discussed GDM diet with patient. Discus sed labor precautions. And schedule weekly NST BPP to start at 32 weeks. Return in 2 weeks OB check 10/05/24 -?-?-?-?-?-?-?-?-?-?-?-?- 30w 3d 67.642 kg 104/68 absent cephalic 30 135 active Complains of itching over her abdomen. Patient read [employer] and got scared. Sometimes complains of feeling short of breath. She is worried that her iron is low again I had already started her on iron twice a day for an H&H of 11 and 33. Reports good movement. Denies contractions. Denies leaking. Denies bleeding. Comfort measures for leg cramps. Comfort measures for itching. Patient can use Claritin daily. Discussed mild varicose veins in her left leg. Elevate them and wear support hose of is not too hot. CMP with cholestasis labs today. Continue iron twice a day. Patient to increase green veggies. Increase fluids. Discussed labor precautions and kick count. Patient has a follow-up MFM for middle of October. 10/16/24 -?-?-?-?-?-?-?-?-?-?-?-?- 32w 0d 69.173 kg 105/66 absent cephalic 32 135 active Follow-up MFM October 25. Reports good movement. Denies leaking, bleeding, contractions. Patient wants to know since her 3-hour was okay can she eat what ever she wants Follow-up MFM Se ptember 11. Discussed labor precautions. Weekly NST BPP is pending. I will send patient this week to start. Continue vitamins and iron. Increase fluids. Kick count twice a day. I di scussed diet and weight with patient 10/29/24 -?-?-?-?-?-?-?-?-?-?-?-?- 33w 6d 70.364 kg 125/87 absent cephalic 33 135 active Still complains of itching. Denies labor. Reports fetus is active. Her labs for cholestasis liver enzymes AST and ALT were normal. Bile acids were 16. BUN/creatinine ratio was 18 Disc ussed cholestasis labs with Dr. Simeon. The plan is to deliver patient at 37 weeks. Start ursodiol 200 p.o. twice daily. NST BPP to be done twice weekly. Discussed labor precautions and kick count twice a day. Plan for delivery at 37 weeks. Discussed cholestasis labs w lissette Simeon. The plan is to deliver patient at 37 weeks. Start ursodiol 200 p.o. twice daily. NST BPP to be done twice weekly . Discussed labor precautions and kick count twice a day. Plan for delivery at 37 weeks.. 11/05/24 -?-?-?-?-?-?-?-?-?-?-?-?- 34w 6d 70.987 kg 109/65 absent cephalic 34 135 active Patient was happy to say that her ursodiol to 50 has been approved and she is taking it as directed. She reports that her itching is gone. Compliant with regular NST BPP. Fetus is active and moving. Denies leaking, bleeding, contractions schedule IOL 11/22/24 for cholestasis. GBS next visit. Discussed labor precautions and kick count. Continue that with the ursodiol and weekly NST BPP. Discussed danger signs symptoms and ER precautions 11/12/24 -?-?-?-?-?-?-?-?-?-?-?-?- 35w 6d 71.668 kg 125/79 absent cephalic 35 135 active Itching improved with estradiol. Reports good movement. Patient compliant with NST BPP twice a week. Induction scheduled for November 22, 2024. Denies leaking, bleeding, contractions Induction schedu led November 22, 2024. Discussed labor precautions and kick count twice a day. Continue with weekly NST BPP's. Discussed danger signs symptoms and ER precautions. Continue ursodiol. Return a week OB check 11/19/24 -?-?-?-?-?-?-?-?-?-?-?-?- 36w 6d 74.162 kg 120/81 occasional breech 36 1 50 Itching is improved with ursodiol. Reports good movement. Denies leaking or bleeding. Occasional contraction. Continue weekly NST BPP. Patient to continue ursodiol. Discussed danger signs and symptoms and ER precautions. Because baby's breech presentation patient was sent to the labor and delivery and will schedule C- section for breech. Kick count twice a day. And continue ursodiol 01/02/25 -?-?-?-?-?-?-?-?-?-?-?-?- 43w 1d 63.049 kg 114/72 AKUA Calculator Estimated Delivery Date Method Current WG Current Estimate 12/11/24 LMP (Certain) 43w 3d Other Estimates 12/11/24 Ultrasound #1 43w 3d 12/11/24 Ultrasound #2 43w 3d 12/11/24 Manual 43w 3d final AKUA: 11/15 10/08, EFW: 59% Notes Visit Date: 01/02/25 Last Updated by: Nakia Ignacio MD s/p C section for Breech on 11/21/2024 h/o cholestasis and also GDM plan CMP/ Bile acids, CBC and also 2 hour GTT and start minipill in 1 week and resume marital activity in 2 weeks / start low paced exercise and build up gradually Visit Date: 11/19/24 Last Updated by: Yashira Kapoor CNM 11/19: gbs- Vero stasis labs: Bilirubin: 0.2, Bile Acida: 16.5 Visit Date: 10/16/24 Last Updated by: Yashira Kapoor CNM 10/16: 3 hr gtt: wnl. 1 value high. Visit Date: 09/18/24 Last Updated by: Yashira Kapoor CNM 39 yo LMP :03/06/24. EDC: 12/11/24. 1hr gtt: 147, O+,abs-, rpr;;nr, rub imm, hbsag-, hiv-,hc-, GC/CT-, NIPT/carrier screen- HPI Interval History: 39 years old s/p c section for breech/ also had cholestasis of / Here for incision check and follow up post op / Her C section was done 11/21/2024 her BP was elevated last visited and she was in ED and was sent home as her evaluation for preeclampsia was negative . 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 Narrative Review of Systems: Reviewed all 14 point review of systems and all is negative except as noted Exam Narrative Physical exam: alert x3 chest clear CVS RRR NO thyromegaly uterus not palpable Just below the umbilicus Bowel sounds present Abdomen soft no hernias noted/no CVAT Incision CDI No drainage Non tender No calf tenderness Edema none Office Procedures OBC Clinic LOC & Office Proc's Nursing/Assessment Patient Status: Established Patient OB Clinic Nursing Assessment: Medication Reconciliation, Update PMH in EMR and Vital Signs OB Clinic Coordination of Care: Consent,records obtained, informed consent, Education Simp Pt/Fam, Lab and Imaging orders, Results/Orders obtained and Staff clarify orders Established Patient Charge Established Patient Point Assignment: 80 Established Patient Point Charge: EP Level 3 (80-115) Assessment & Plan Diagnosis / Problem List (1) induced hypertension, : Status: Acute Plan: normal BP (2) delivery delivered: Status: Acute Plan: still feels sore though clinically well healed (3) Cholestasis during in third trimester: Status: Acute Plan: labs ordered and also 2 hour GTT per patient request (4) Advanced maternal age (AMA) in : Status: Acute Assessment and Plan: see below Plan HISTORY OF PRESENT ILLNESS AI Consent obtained: I, Dr. Ignacio, have obtained verbal consent from the patient, to be recorded during this encounter which may include, but not limited to, medical history, examination, treatment plans, and relevant health information. Patient was informed that recording will be read and reviewed by myself before inclusion in the medical chart. Recordings will be maintained in accordance with State and Federal law and only for a limited period of time for validation purposes, then destroyed and not retained. The patient is a female who presents for evaluation of post- section status, pubic bone pain, and gestational diabetes. She underwent a section on 11/21/2024 and continues to experience soreness at the incision site. She has resumed cooking and cleaning activities and is eager to return to her exercise routine, which includes walking outdoors and using a treadmill. She is currently but reports a decrease in milk production compared to previous pregnancies. She has a history of using the calendar method for contraception, which resulted in an unintended . She also reports pain in her pubic bone when lifting one leg while carrying her baby, a symptom she did not experience during her . She has a history of gestational diabetes, which she believes may persist beyond her pregnancies. She has not undergone any glucose testing outside of her pregnancies. Gynecological History discussed: - Frequency and flow: Very light - Menstrual pain: Cramping CONTRACEPTION: - Calendar method previously used - Currently - Plans to start pills in two weeks Obstetrical History discussed: - section on 11/21/2024 PAST MEDICAL HISTORY: Gestational diabetes PAST SURGICAL HISTORY: section on 11/21/2024 PHYSICAL EXAM Integumentary: The incision from the appears to be healing well with no signs of infection. Mild soreness noted, which is expected. ASSESSMENT AND PLAN 1. Post- section status: - The surgical incision is healing appropriately, with some residual muscle soreness expected. Full scar strength will take approximately one year to develop. - The incision will not reopen during activities such as scrubbing or waxing. - control pills compatible with were prescribed, with instructions to commence the medication in two weeks. An additional contraceptive method should be used during the first week of pill use. - Gradual resumption of exercise routine was recommended, starting with low- impact activities and progressively increasing intensity. 2. Pubic bone pain: - [id number] analgesics such as Tylenol or ibuprofen were recommended for pain management. - If the pain persists beyond three months, further diagnostic imaging such as X-rays will be considered. 3. Gestational diabetes: - A glucose test was ordered to monitor her blood sugar levels post- .and also CMP and bile acids Follow-up: The patient will follow up in 3 months. Care Reviewed delivery summary and any complications: Yes Discussed family planning & contraception: Yes Contraception planned: Minipills Counseling on safe resumption of sexual activity: Yes Counseling on gradual excercise: Yes Discussed and concerns (describe), provided support: Yes Counseled on good nutrition, hydration, and self care: Yes Reviewed vaccine status: No Additional follow up plans: start minipills and follow up in 3 months Follow up: routine/prn
== END 2025-01-02 14:44 | disposition home or self-care (01) ==
LOC: HODSOBC 13:14
PROVIDERS: Supervising Provider Obstetrics & Gynecology; Visit Provider Obstetrics & Gynecology
DX: Z39.2 Encounter for routine postpartum follow-up (principal); Z39.1 Encounter for care and examination of lactating mother; O13.5 Gestational [pregnancy-induced] hypertension without significant proteinuria, complicating the puerperium; O24.439 Gestational diabetes mellitus in the puerperium, unspecified control; O90.89 Other complications of the puerperium, not elsewhere classified; R10.20 Pelvic and perineal pain unspecified side; Z30.011 Encounter for initial prescription of contraceptive pills
CPT/HCPCS: 99213; G0463